=== PATIENT | female | born 1985 | race Caucasian/White ===

== ENCOUNTER 2018-08-24 18:07 | Emergency (ER) | payer MEDICAID, SELFPAY ==
[2018-08-24 18:08] VITALS: BP 101/59; PULSE 78; RESP 14; TEMP 37.1; O2SAT 100; BMI 19.9
--- NOTE | 2018-08-24 18:32 | CT_ITS ---
STUDY: CT ABDOMEN AND PELVIS WITH CONTRAST REASON FOR EXAM: Female, 32 years old. Abdominal pain. Crohn's disease. RADIATION DOSAGE (If Supplied By Facility): CTDIvol = ( 9.42 ) mGy, DLP = ( 269.46 ) mGycm TECHNIQUE: Transaxial images were obtained from the dome of the diaphragm to the symphysis pubis without oral contrast. 100 IV Isovue 370 was administered. Sagittal and coronal images were reconstructed. Individualized dose optimization techniques were used for this CT. COMPARISON: 07/23/2014 FINDINGS: The visualized lung bases are unremarkable. The visualized portions of the heart are within normal limits. Normal liver. The gallbladder is contracted. Normal spleen. Normal pancreas. Normal bilateral adrenal glands. Normal right kidney. Normal left kidney. Evaluation of the GI tract is very limited without oral contrast in this patient with history of Crohn's disease. In particular, evaluation of bowel valentin and exclusion of bowel wall thickening is very limited. Stomach is distended with ingested contents. No definitely dilated loops of small bowel but cannot exclude segments of small bowel wall thickening/enteritis. In fact, multiple loops of bowel in the pelvis appear to have an enhancing wall. This can be seen in nonspecific enteritis. Large bowel appears to be involved with marked diffuse fecal retention. No definite large bowel wall distention. Normal abdominal aorta. Normal inferior vena cava. Normal retroperitoneum. Normal urinary bladder. There is absence of the uterus consistent with a prior hysterectomy. 3 cm probable right ovarian cyst. Recommend further evaluation with ultrasound. There appears to be mild free fluid in the pelvis. Normal abdominal wall. Normal osseous structures. CT/Abdomen/Pelvis W IV Cont ONLY IMPRESSION: Evaluation of the GI tract is very limited without oral contrast in this patient with Crohn's disease. Neither enteritis or colitis can't be excluded. No evidence for obstruction. Marked fecal retention. 3 cm probable right ovarian cyst, ultrasound recommended. Electronically Signed: Tommie Ewing MD at 19:38 EDT , Service support ,
--- NOTE | 2018-08-24 18:35 | ED.DCSUM_ITS ---
- ER Visit Summary Date of Service: 08/24/18 Chief Complaint: Abdominal pain History of Present Illness: The patient is a 32 F who had nausea and vomiting couple days ago, now improved. She has continued right lower quadrant pain. She denies fever or chills. She has some urinary urgency but no dysuria. She is a history of Crohn's disease but states this has not felt a Crohn's flare. She has had prior appendectomy and partial hysterotomy. She is not sure if her right ovary has been removed. Physical Examination: Vital signs unremarkable. Patient lying in bed no acute distress. Head neck examination unremarkable. Heart is regular rate and rhythm. Lungs sounds are clear. Abdomen is soft with tenderness in the inferior aspect of the right lower quadrant. There is no guarding or rebound. Hypoactive bowel sounds are present. Test Results: CBC and chemistry studies are unremarkable. Urinalysis unremarkable. Emergency Department Course and Treatment: Patient was given Toradol, Zofran, and IV fluids. CT scan of the abdomen and pelvis with IV contrast reveals a 3 cm right ovarian cyst. Fecal retention is noted. Patient's pain and exam findings are not consistent with ovarian torsion I did not pursue ultrasound at this time. Patient be treated with naproxen at home and referred to Dr. Flores, on-call for [employer]POR[employer]NAGER. Treatment Plan: [] Disposition: Discharge Impression: Right ovarian cyst This note was generated with [employer] dictation software. It may contain incorrect words, spelling, and punctuation that were not noted in review of the chart prior to signing ED Disposition - Plan for ED Patient: Referrals: Care Physician,No Primary [NON-STAFF] -
[2018-08-24] MEDS: 0.9% Normal Saline 1,000 ML 150 ML IV (18:41)
[2018-08-24] MEDS: Ketorolac 30 MG/ML Syringe IV (18:41)
[2018-08-24] MEDS: Ondansetron 4 MG/2 ML Vial IV (18:41)
[2018-08-24 18:55] LABS: Absolute Lymphocyte Count 2.84 X10^3/ul (0.83-4.51); Absolute Neutrophil Count 2.5 X10^3/uL (2.0-7.7); Basophil# 0.01 X10^3/uL; Basophil% 0.2 % (0-1); Eosinophil# 0.16 X10^3/uL; Eosinophils% 2.6 % (0-5); Hemoglobin 12.5 g/dl (12.0-15.0); Lymphocyte # 2.84 X10^3/ul (4.0); Lymphocyte % 46.9 % (19-41); Mean Corp Hgb Conc 32.9 g/gl (32-36); Mean Corpuscular Hgb 28.2 pg (27.0-32.0); Mean Corpuscular Volume 85.8 fL (81-99); Mean Platelet Vol. 10.2 fl (6.2-12.0); Monocyte# 0.52 X10^3/uL; Monocyte% 8.6 % (0-10); Neutrophil # 2.51 X10^3/uL (2.7-7.7); Neutrophil % 41.5 % (47-70); Platelet Count 228 K/mm3 (150-450); RBC Distribution Width CV 13.1 % (11.6-14.6); RBC Distribution Width SD 40.7 fl (35.1-43.9); Red Blood Count 4.43 M/mm3 (4.2-5.4); White Blood Count 6.1 K/mm3 (4.4-11.0)
[2018-08-24 18:57] LABS: Anion Gap 4 (5-15); BUN 9 mg/dL (7-18); BUN/Creat Ratio 18.1 RATIO (10-20); Calcium,Total 7.9 mg/dL (8.5-10.1); Chloride 107 mmol/L (98-107); EST Glomerular Filtration Rate 151 mL/min (>60); Est Glom Filt Rate - Afr Amer 183 mL/min (>60); Estimated Creatinine Clearance 132.93 ml/min; Glucose 99 mg/dL (74-106); Potassium 3.6 mmol/L (3.5-5.1); Sodium Level 140 mmol/L (136-145)
[2018-08-24 19:08] LABS: Color, Urine Yellow (Yellow); Glucose, Dipstick Normal (Normal); Ketone-Dipstick 5 mg/dl (Negative); Leukocyte Esterase-Dipstick 25 /ul (Negative); Nitrite-Dipstick Negative (Negative); Occult Blood-Urine Negative /ul (Negative); Protein-Dipstick 15 mg/dl (Negative); Red Blood Cells-Urine 0 SEEN /hpf (0-5); Specific Gravity, Urine 1.015 (1.002-1.030); Urine Clarity Sl. Cloudy (Clear); Urine Urobilinogen 8 mg/dl (Normal); White Blood Cells 0 SEEN /hpf (0-5)
[2018-08-24 19:09] LABS: Urine Bilirubin Dipstick 1 mg/dL (Negative)
[2018-08-24 19:16] LABS: Bacteria RARE /hpf (None Seen); Mucous, Urine 1+ /hpf (<or=2+); Squamous Epithelial Cells - UA 10-25 SEEN /hpf (5-10)
[2018-08-24 19:32] LABS: POSITIVE COUNT NO; POSITIVE DIFFERENTIAL NO; POSITIVE MORPHOLOGY NO
--- NOTE | 2018-08-24 20:32 | ED.DEP ---
ED Disposition - Plan for ED Patient: Disposition: Home or Assisted Living Instructions: ED Cyst Ovarian Prescriptions: Naproxen [Naprosyn] 500 mg PO BID PRN PRN #20 tablet PRN Reason: Pain Referrals: Donald Flores [STAFF PHYSICIAN] - 1-2 Weeks
[2018-08-24 20:45] VITALS: BP 97/61; PULSE 70; RESP 16; O2SAT 98
== END 2018-08-24 20:45 | disposition home or self-care (01) ==
PROVIDERS: Emergency Provider Emergency Medicine
DX: N83.201 Unspecified ovarian cyst, right side (principal); K50.90 Crohn's disease, unspecified, without complications; K59.00 Constipation, unspecified; R39.15 Urgency of urination; Z72.0 Tobacco use
CPT/HCPCS: 74177; 80048; 81001; 85025; 96361; 96374; 96375; 99283; J7030; Q9967; A4216; J2405

== ENCOUNTER 2019-05-11 22:14 | Emergency (ER) | payer MEDICAID, SELFPAY ==
[2019-05-11 22:14] VITALS: BP 105/71; PULSE 88; RESP 16; TEMP 37.2; O2SAT 100; BMI 21.2
--- NOTE | 2019-05-11 23:10 | ED.VIS.GEN ---
History of Present Illness Chief Complaint: Other, Pain/Inj Informant: Patient Narrative: Stated for last few days she has had some soreness in her right side of her neck. She has been using ibuprofen intermittently. Her last dose was approximately 12 hours ago. It is hurts to massage it push on it and turn her head. She thinks she might of slept on it wrong. Does not remember an injury. She has had muscle strains in her neck remotely but none recent. Denies any other symptoms. Current severity is moderate. When she turns her head it seems to make it worse - Past Medical History (1) History of cystic fibrosis Status: Chronic Past Medical History - Allergies and Home Meds Allergies/Adverse Reactions: Allergies No Known Allergies Allergy (Verified 05/11/19 22:14) Primary Care Physician: Leana Quigley [Primary Care Provider] - Prior records reviewed: Yes Past Medical History: - - See problem list Surgical History: noncontributory Lives: With Family Smoking Status: Current every day smoker Alcohol: None Drugs: None Review of Systems General: Denies: Chills, Fever, Sweats Eyes: Denies: Visual changes - bilaterally, Diplopia ENT: Denies: Rhinorrhea, Sore throat Cardiovascular: Denies: Chest pain, Palpitations Respiratory: Denies: Dyspnea, Cough, Dyspnea on exertion Gastrointestinal: Denies: Abdominal pain, Nausea, Vomiting, Diarrhea, Melena, Hematochezia Genitourinary: Denies: Dysuria, Hematuria, Frequency Musculoskeletal: Reports: Neck pain. Denies: Back pain, Extremity Pain Skin: Denies: Rash, Wounds Neurological: Denies: Headache, Weakness, Numbness Physical Exam Vital Signs/Narrative: Vital Signs Temp Pulse Resp BP Pulse Ox 05/11/19 22:14 98.9 F 88 16 105/71 100 General: Well nourished, Well developed, No Acute Distress Head: Normocephalic, Atraumatic Eyes: Perrl, EOMI ENT: Moist mucous membranes, No rhinorrhea Neck: Supple, No lymphadenopathy, No JVD, - - Has pinpoint tenderness in her right paracervical strap-like muscles. Decreased range of motion looking to the left secondary to pain in the right side of her neck. Also has some pain looking to the right. It is musculoskeletal in nature. There is no swelling or deformity. Negative for: Nontender Cardiovascular: Regular rate, Regular rhythm, No murmurs Respiratory: No distress, CTA bilaterally, Chest nontender Abdomen: Soft, Nontender, Nondistended, Normal bowel sounds Back: Nontender, Normal Inspection Extremities: Nontender, No edema Skin: Normal color, No rash Neurological: Alert, Oriented x3, Cranial nerves II-XII grossly intact, Normal Strength, Normal Sensation Psychological: Normal affect, Normal Mood Diagnostic/Tx/Re-eval - Medical Decision Making Patient given injection of Toradol and Norflex. Will be given Flexeril for home. We will follow-up as an outpatient continue ibuprofen for suspected muscle strain of her neck. This may be torticollis. ED Disposition - Plan for ED Patient: Disposition: Home or Assisted Living Diagnosis: Wry neck Instructions: Neck Sprain/Strain Prescriptions: cycloBENZAPRine HCl [Flexeril] 10 mg PO TID PRN #20 tab PRN Reason: Muscle Spasm Prescription Printed Referrals: [facility] Kishore,Leana Suresh [Primary Care Provider] -
[2019-05-11] MEDS: Orphenadrine 60 MG/2 ML Ampul IM (23:27)
[2019-05-11] MEDS: Ketorolac 15 MG/ML Vial IM (23:27)
[2019-05-11 23:57] VITALS: BP 110/62; PULSE 70; RESP 16; O2SAT 100
== END 2019-05-11 23:58 | disposition home or self-care (01) ==
PROVIDERS: Emergency Provider Emergency Medicine
DX: M43.6 Torticollis (principal); E84.9 Cystic fibrosis, unspecified; F17.200 Nicotine dependence, unspecified, uncomplicated
CPT/HCPCS: 96372; 99283

== ENCOUNTER 2020-05-20 14:18 | Emergency (ER) | payer SELFPAY ==
[2020-05-20 14:19] VITALS: BP 100/83; PULSE 103; RESP 16; TEMP 36.1; O2SAT 100; BMI 19.8
--- NOTE | 2020-05-20 15:04 | ED.VISSUMM ---
- ER Visit Summary Date of Service: 05/20/20 Chief Complaint: Abscess to right leg History of Present Illness: The patient is a 34 F who goes to the [facility]. She reports that she has had an abscess on her right leg for the past 3 weeks. There have been multiple different areas that have opened up and drained. However, she reports that there is one area that is not draining is becoming more painful. She describes a sharp, aching pain is 1010 worsening to 10 currently. Is worsened by walking. It is relieved by rest but she is taken Tylenol without relief. She denies any numbness or weakness. Patient denies any injury that started this. She does report that she has gotten yellow, thick drainage from it. She has not been on any antibiotics for this. She denies any constitutional symptoms. No fever, chills, nausea, or vomiting. Physical Examination: Vitals: Stable. Afebrile. General: Well-nourished and well-developed. Head: Normocephalic atraumatic. Neck: Supple, no lymphadenopathy. No JVD. Nontender. Cardiovascular: Regular rate and rhythm. No murmurs. Respiratory: No respiratory distress. Clear to auscultation bilaterally. Abdominal: Soft, nontender, nondistended, normal bowel sounds. No guarding, rebound, or peritoneal signs. Back: Nontender. Extremities: Medial side of her right leg just proximal to the medial malleolus there are 2 ulcers that are approximately 1-1/2 cm in diameter. There are 3 scabbed lesions superior to this. Just anterior to her Achilles tendon there is an approximately 2 cm fluctuant area. There is overlying erythema and tenderness to palpation. There is no lymphangitic spread. She is a 2+ dorsalis pedis pulse. Skin: Normal color, no rash. Neurologic: Alert and oriented ?3. Cranial nerves II through XII are intact. Normal strength and sensation. Psych: Normal affect. Emergency Department Course and Treatment: Patient refused I&D of this area. Had a prolonged discussion with her that it will likely not get better without an incision and drainage. She is adamant that she does not want to have performed at this time. She was given doxycycline p.o. and naproxen p.o. Treatment Plan: Patient will be discharged with doxycycline, naproxen, 6 [place]. Instructed to follow-up the wound clinic as soon as possible. She does understand that if this is not improving with conservative management that she will require incision and drainage. Return to the emergency department for any worsening symptoms. Disposition: To home in improved and stable condition. Impression: 1. Abscess right leg. 2. Ulcers right leg. This note was generated with [employer] dictation software. It may contain incorrect words, spelling, and punctuation that were not noted in review of the chart prior to signing ED Disposition - Plan for ED Patient: Disposition: Home or Assisted Living Instructions: ED Abscess Antibiotic Treatment Only Prescriptions: Mupirocin [Bactroban] 1 applic TOPICAL TID #1 tube Prescription Printed Doxycycline 100 mg PO BID #20 cap Prescription Printed Naproxen [Naprosyn] 500 mg PO BID #14 tab Prescription Printed Hydrocodone Bitart/Apap 5-325 [[place] 5MG-325MG] 1 tab PO Q4H PRN PRN 2 Days #10 tab PRN Reason: Pain Prescription Printed Referrals: Clinic,Wound [None] - As soon as possible
[2020-05-20] MEDS: Naproxen 250 MG Tablet 500 MG PO (15:11)
[2020-05-20] MEDS: Doxycycline 100 MG CAPSULE PO (15:11)
== END 2020-05-20 15:20 | disposition home or self-care (01) ==
PROVIDERS: Emergency Provider Emergency Medicine
DX: L02.415 Cutaneous abscess of right lower limb (principal); L97.919 Non-pressure chronic ulcer of unspecified part of right lower leg with unspecified severity; K50.90 Crohn's disease, unspecified, without complications; F17.210 Nicotine dependence, cigarettes, uncomplicated
CPT/HCPCS: 99283

== ENCOUNTER 2020-05-24 09:15 | Outpatient (RCR) | payer SELFPAY ==
[2020-05-24 09:23] VITALS: BP 92/70; PULSE 78; TEMP 36.8; BMI 19.8
--- NOTE | 2020-05-24 12:41 | PCM.WC.HP ---
(1) Ulcer of right lower extremity with fat layer exposed Status: Acute Code(s): L97.912 - Non-pressure chronic ulcer of unspecified part of right lower leg with fat layer exposed (2) Crohn's disease Status: Chronic Code(s): K50.90 - Crohn's disease, unspecified, without complications History of Present Illness Date of Service: 05/24/20 Chief Complaint: Non healing right leg ulcer History of Wound: Ms. Napier is a 34 yo Who presents to the wound center due to nonhealing right lower extremity ulcer. Initially noted about 3 weeks ago and said to have started as a swelling/abscess. Was seen at the emergency room and an I&D was recommended however patient declined due to significant pain. Subsequently opened up with drainage of yellowish/greenish substance. She also reports significant tenderness around the area. Has been on doxycycline for about 4 days and has noted some improvement in the pain but still overall significantly tender. Similar episodes in the past which started spontaneouly and resolved after weeks. Documented history of Crohn's disease but has not had any significant treatment due to lack of insurance. 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 History of Tobacco abuse and currently smokes 1/2 a pack a day. Past Medical History Past Medical History: Chronic Problems Crohn's disease (Chronic) History of cystic fibrosis (Chronic) Surgical History: noncontributory Allergies/Adverse Reactions: Allergies No Known Allergies Allergy (Verified 05/20/20 14:20) Home Medications: Ambulatory Orders Medication Instructions Recorded Doxycycline 100 mg PO BID #20 cap 05/20/20 Mupirocin [Bactroban] 1 applic TOPICAL TID #1 tube 05/20/20 Naproxen [Naprosyn] 500 mg PO BID #14 tab 05/20/20 Smoking Status: Light Smoker (<10/day) Review of Systems Constitutional: Denies: Anorexia, Chills, Fever Eyes: Denies: Blurred vision, Pain, Redness HEENT: Denies: Difficulty Hearing, Difficulty Swallowing, Head Aches Cardiovascular: Denies: Chest Pain, Claudication, Chest Pressure, Chest Tightness Respiratory: Denies: Cough, Hemoptysis, Pleuritic Pain, Sputum production Gastrointestinal: Reports: Abdominal Pain, Hematochezia. Denies: Hematemesis, Vomiting Skin: Denies: Jaundice - Physical Exam Vital Signs Temp Pulse BP 98.3 F 78 92/70 05/24/20 09:23 05/24/20 09:23 05/24/20 09:23 General: Alert, Oriented x3, Cooperative, No apparent distress HEENT: Atraumatic, Normocephalic, Lymphadenopathy - Right Inguinal Neck: Supple, No JVD Lungs: Normal air movement, No wheeze, No rales Cardiovascular: Regular rate, Regular Rhythm, Normal S1, Normal S2 Abdomen: Soft, Tender Extremities: No cyanosis, No edema Skin: Ulcer/ Wound Wound Measurements and Assessment WC - Nurse 1 - General Ulcer Measurement Start: 05/24/20 09:23 Freq: Status: Active Protocol: Activity Type Activity Date Activity User E-Sign Co-Sign Detail Recorded Client Recorded Date Recorded By Document 05/24/20 09:23 KR [id number] 05/24/20 09:33 KR 05/24/20 09:23 Wound Center Nurse 1 [Ulcer Assessment] # 1Right Ankle Cluster -Current Size (cm) - Length 8.4 -Current Size (cm) - Width 6 -Current Size (cm) - Depth 0.2 -Total Square Cm 50.4 -Exudate Amt Medium -Exudate Type Serosanguineous -Wound Margin Distinct, Outline Attached -Granulation Amt Medium (34-66%) -Granulation Quality Red -Necrosis Amt Medium (34-66%) -Necrotic Tissue Type Adherent Slough -Texture (Harper-wound Skin Appearance) Assessed, Scarring -Moisture (Harper-wound Skin Appearance No Abnormality, ) Assessed -Color (Harper-wound Skin Appearance) No Abnormality, Assessed -Temperature (Harper-wound Skin No Abnormality Appearance) (Pt Warm) -Tenderness on Palpation (Harper-wound No Skin Appearance) -Ulcer Cleansing Rinsed/ Irrigated with Saline -Foul Odor after Cleansing No -Anesthetic Used 4% Lidocaine Solution,5% Lidocaine Gel WC - Nurse 2 - General Ulcer CM Notes Start: 05/24/20 09:23 Freq: Status: Active Protocol: Activity Type Activity Date Activity User E-Sign Co-Sign Detail Recorded Client Recorded Date Recorded By Document 05/24/20 09:55 MW [id number] 05/24/20 10:03 MW 05/24/20 09:55 Wound Center Nurse 2 [Procedure/Treatment] -Time 09:56 -Correct Patient Yes -Correct Side, Site, Position Yes -Correct Procedure Yes -Procedure Performed No -Tunneling No -Undermining/Tunneling No -Circular Undermining No -Wound/Ulcer Outcome Not Healed -Ulcer Cleansing Rinsed/ Irrigated with Saline -Foul Odor after Cleansing No -Bioengineered Tissue No -Bleeding Controlled with Pressure -Offloading No -Treatment Response Procedure Tolerated Well [See Physician Procedure note for Specifics] Pain Scale: 0-10 Numeric [Pain] -Is Patient Pain Free? Yes - Nurse 3 - General Ulcer D/C NN Start: 05/24/20 09:23 Freq: Status: Active Protocol: Activity Type Activity Date Activity User E-Sign Co-Sign Detail Recorded Client Recorded Date Recorded By Document 05/24/20 10:37 DL [id number] 05/24/20 10:38 DL 05/24/20 10:37 Wound Care Nurse 3 [Wound Dressing] # 1Right Ankle Cluster -Ulcer Cleansing Rinsed/ Irrigated with Saline -Foul Odor after Cleansing No -Primary Dressing Applied Silvercel -Primary Dressing Covered/Secured Dry Gauze & with Roll Gauze, Secured with Tape -Silvercel 1 [Compression Applied] Right -Tubular Bandage Double Layer -Size of Tubigrip Used Size D -Size D ($) 2 [Post Procedure Tolerated] -Treatment Response Procedure Tolerated Well Pain Scale: 0-10 Numeric [Pain] -Is Patient Pain Free? Yes - Visit Discharge [Visit Discharge Information] -Discharge Condition Stable -Ambulatory Status Ambulatory -Transportation Private Auto Musculoskeletal: No Muscle Wasting Neurological: Cranial nerves II-XII grossly intact Psych/Mental Status: Normal Affect Debridement Note Post-Debridement Measurements/Treatment - Nurse 2 - General Ulcer CM Notes Start: 05/24/20 09:23 Freq: Status: Active Protocol: Activity Type Activity Date Activity User E-Sign Co-Sign Detail Recorded Client Recorded Date Recorded By Document 05/24/20 09:55 MW [id number] 05/24/20 10:03 MW 05/24/20 09:55 Wound Center Nurse 2 # 1Right Ankle Cluster -Time 09:56 -Correct Patient Yes -Correct Side, Site, Position Yes -Correct Procedure Yes -Procedure Performed No -Tunneling No -Undermining/Tunneling No -Circular Undermining No -Wound/Ulcer Outcome Not Healed -Ulcer Cleansing Rinsed/ Irrigated with Saline -Foul Odor after Cleansing No -Bioengineered Tissue No -Bleeding Controlled with Pressure -Offloading No -Treatment Response Procedure Tolerated Well Pain Scale: 0-10 Numeric Is Patient Pain Free? Yes WC - Nurse 3 - General Ulcer D/C NN Start: 05/24/20 09:23 Freq: Status: Active Protocol: Activity Type Activity Date Activity User E-Sign Co-Sign Detail Recorded Client Recorded Date Recorded By Document 05/24/20 10:37 DL [id number] 05/24/20 10:38 DL 05/24/20 10:37 Wound Care Nurse 3 # 1Right Ankle Cluster -Ulcer Cleansing Rinsed/ Irrigated with Saline -Foul Odor after Cleansing No -Primary Dressing Applied Silvercel -Primary Dressing Covered/Secured with Dry Gauze & Roll Gauze, Secured with Tape -Silvercel 1 Right -Tubular Bandage Double Layer -Size of Tubigrip Used Size D -Size D ($) 2 Treatment Response Procedure Tolerated Well Pain Scale: 0-10 Numeric Is Patient Pain Free? Yes WC - Visit Discharge Discharge Condition Stable Ambulatory Status Ambulatory Transportation Private Auto No debridement was completed today Assessment/Plan Active Problems Ulcer of right lower extremity with fat layer exposed (Acute) Crohn's disease (Chronic) Assessment: Right Leg Ulcer with Fat layer Exposed. Recurrent Lower Extremity Ulcerations. Crohn's Disease. Plan: 3-week history of right lower extremity ulcer which started out as an abscess. Subsequently opened up. Significantly tender. History of recurrent ulcerations in similar fashion. Diagnosed with Crohn's years ago. Has not been adequately treated due to lack of insurance. 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 Debridement not done due to significant tenderness. Currently on doxycycline, will add on Keflex. Aquacel Ag daily to twice daily depending on drainage. Cover with gauze and tape. Double layer Tubigrip for edema management. She was advised to look into registering for Medicaid, she states that she was in the process of doing so. Questions were answered and she was advised to call with any further questions or concerns. Follow-up in a week. This note was generated with [employer] dictation software. It may contain incorrect words, spelling, and punctuation that were not noted in checking the note before signing. Office Visits / Consults: [id number] OV L4 New
== END 2020-06-10 23:59 ==
LOC: WC 09:15
PROVIDERS: Referring Provider Emergency Medicine; Visit Provider Internal Medicine
DX: L97.912 Non-pressure chronic ulcer of unspecified part of right lower leg with fat layer exposed (principal); K50.90 Crohn's disease, unspecified, without complications; F17.210 Nicotine dependence, cigarettes, uncomplicated; Z79.1 Long term (current) use of non-steroidal anti-inflammatories (NSAID); E84.9 Cystic fibrosis, unspecified
CPT/HCPCS: 99203; G0463

== ENCOUNTER 2020-07-10 10:58 | Emergency (ER) | payer SELFPAY ==
[2020-07-10 10:59] VITALS: BP 132/84; PULSE 95; RESP 16; TEMP 36.1; O2SAT 99; BMI 20.9
--- NOTE | 2020-07-10 11:31 | ED.DCSUM_ITS ---
- ER Visit Summary Date of Service: 07/10/20 Chief Complaint: Abdominal pain with a history of Crohn's History of Present Illness: The patient is a 34 F reported history of Crohn's with prior appendectomy and partial hysterectomy. States she was diagnosed with Crohn's years ago with upper and lower endoscopy and biopsies. She denies any prior partial colon surgeries. States on Thursday she started getting crampy abdominal pain with associated nausea, vomiting and diarrhea. He said the nausea and vomiting is resolved. She still having mild diarrhea. No melena. No fever. No dysuria. Burning pressure sensation Physical Examination: Young female no acute distress. Vital signs stable afebrile. HEENT exam unremarkable. Moist wheeze members. Neck nontender no lymphadenopathy. Lungs clear to auscultation bilaterally. Heart regular rhythm rate about 95 no murmur. Abdomen soft. Nondistended. Normal bowel sounds. No peritoneal signs. No signs of obstruction. Very mild epigastric tenderness. No rebound, guarding or rigidity. No obvious hernia or mass.. Both the right upper and right lower quadrants are unremarkable. Patient is moving all 4 extremities. Calves are nontender without edema. Back is nontender. Neurologically she is awake and alert with no focal motor deficits. Test Results: CBC normal white count 8. Hemoglobin 12. No bands chemistries unremarkable normal gap and creatinine. Liver enzymes normal. Lipase normal at 157. UA normal. CAT scan of the abdomen and pelvis with IV and oral contrast shows inflammatory changes of the terminal ileum consistent with Crohn's disease per the radiologist. Read by the radiologist reviewed by me. No perforation. No abscess. No obstruction. Repeat exam patient is doing well at 1:05 PM. Awaiting CAT scan. Emergency Department Course and Treatment: Young female reported history of Crohn's with abdominal pain and diarrhea. Nausea and vomiting is resolved. I asked her and she did not waiting for pain or nausea at this time. She will be given IV fluids. CAT scan labs are being obtained. Treatment Plan: Doing well repeat exam at 2:22 PM. She will be discharged to home. [place]ota for pain. Follow-up. Disposition: Discharge Impression: Acute abdominal pain secondary to Crohn's flare History of Crohn's This note was generated with [employer] software. It may contain incorrect words, spelling, and punctuation that were not noted in review of the chart prior to signing ED Disposition - Plan for ED Patient: Referrals: [facility],Leana Suresh [Primary Care Provider] -
--- NOTE | 2020-07-10 11:31 | CT_ITS ---
STUDY: CT ABDOMEN AND PELVIS WITH CONTRAST REASON FOR EXAM: Female, 34 years old. abd pain w/ crohns hx -- IV PO Contrast RADIATION DOSAGE (If Supplied By Facility): CTDIvol = ( 9.59 ) mGy, DLP = ( 285.91 ) mGycm TECHNIQUE: Transaxial images were obtained from the dome of the diaphragm to the symphysis pubis without oral contrast. Oral and amp; IV Gastrografin and amp; 100mL Isovue-300 was administered. Sagittal and coronal images were reconstructed. Individualized dose optimization techniques were used for this CT. COMPARISON: 08/24/2018 FINDINGS: The visualized lung bases are unremarkable. The visualized portions of the heart are within normal limits. Normal liver. The gallbladder is contracted. Normal spleen. Normal pancreas. Normal bilateral adrenal glands. Normal right kidney. Normal left kidney. Normal visualized stomach. The terminal ileum demonstrates diffuse wall thickening consistent with known Crohn''s disease. No loculated fluid collection to suggest the abscess. No pneumoperitoneum to suggest perforation. Normal colon. There is non-visualization of the appendix. Normal abdominal aorta. Normal inferior vena cava. Normal retroperitoneum. Normal urinary bladder. Normal abdominal wall. Normal osseous structures. CT/Abdomen/Pelvis WITH Contrast IMPRESSION: Known Crohn''s disease of the terminal ileum. No abscess or perforation. Electronically Signed: Hakeem Pedro MD at 13:50 EST Tel , Service support ,
[2020-07-10] MEDS: 0.9% Normal Saline 1,000 ML 1000 ML IV (11:46)
[2020-07-10 11:48] LABS: Absolute Lymphocyte Count 2.95 X10^3/uL (0.83-4.51); Absolute Neutrophil Count 4.4 X10^3/uL (2.0-7.7); Basophil# 0.04 X10^3/uL; Basophil% 0.5 % (0-1); Eosinophil# 0.14 X10^3/uL; Eosinophils% 1.7 % (0-5); Hematocrit 40.5 % (37-47); Hemoglobin 12.8 g/dL (12.0-15.0); Lymphocyte # 2.95 X10^3/ul (4.0); Lymphocyte % 34.8 % (19-41); Mean Corp Hgb Conc 31.6 g/dL (32-36); Mean Corpuscular Hgb 26.9 pg (27.0-32.0); Mean Corpuscular Volume 85.3 fL (81-99); Mean Platelet Vol. 9.9 fl (6.2-12.0); Monocyte# 0.92 X10^3/uL; Monocyte% 10.8 % (0-10); NRBC Flagged by Analyzer 0 % (0-5); Neutrophil % 51.8 % (47-70); Platelet Count 325 K/mm3 (150-450); RBC Distribution Width CV 13.9 % (11.6-14.6); RBC Distribution Width SD 43.4 fl (35.1-43.9); Red Blood Count 4.75 M/mm3 (4.2-5.4); White Blood Count 8.5 K/mm3 (4.4-11.0)
[2020-07-10 11:56] LABS: ALB/GLOB Ratio 0.8 RATIO (0.9-2.4); AST(SGOT) 26 U/L (15-37); Alanine Aminotransfer ALT/SGPT 50 U/L (13-56); Albumin, Serum 3.3 g/dL (3.2-5.0); Alkaline Phosphatase 113 U/L (45-117); Anion Gap 5 (5-15); BUN 10 mg/dL (7-18); BUN/Creat Ratio 13.5 RATIO (10-20); Calcium,Total 8.9 mg/dL (8.5-10.1); Chloride 106 mmol/L (98-107); Creatinine, Serum 0.74 mg/dL (0.55-1.02); EST Glomerular Filtration Rate 94 mL/min (>60); Est Glom Filt Rate - Afr Amer 114 mL/min (>60); Estimated Creatinine Clearance 91.63 ml/min; Globulin 4.4 g/dL (2.2-4.2); Glucose 88 mg/dL (74-106); Lipase 157 U/L (73-393); Potassium 3.7 mmol/L (3.5-5.1); Protein, Total 7.7 g/dL (6.4-8.2); Sodium Level 137 mmol/L (136-145)
[2020-07-10 12:22] LABS: Bacteria 0 SEEN /hpf (None Seen); Mucous, Urine 0 SEEN /hpf (<or=2+); Red Blood Cells-Urine 0 SEEN /hpf (0-5)
[2020-07-10 12:51] LABS: Color, Urine Yellow (Yellow); Glucose, Dipstick Normal (Normal); Ketone-Dipstick Negative (Negative); Leukocyte Esterase-Dipstick 500 /ul (Negative); Nitrite-Dipstick Negative (Negative); Occult Blood-Urine 10 /ul (Negative); Protein-Dipstick Negative (Negative); Urine Bilirubin Dipstick Negative (Negative); Urine Clarity Sl. Cloudy (Clear); Urine Urobilinogen Normal (Normal)
[2020-07-10 12:58] LABS: Squamous Epithelial Cells - UA 5-10 SEEN /hpf (5-10); Trichomonas 0-5 SEEN /hpf (None Seen); White Blood Cells 0-5 SEEN /hpf (0-5)
[2020-07-10 13:06] VITALS: BP 99/65; PULSE 85; RESP 16; O2SAT 99
--- NOTE | 2020-07-10 14:31 | ED.DEP ---
ED Disposition - Plan for ED Patient: Disposition: Home or Assisted Living Instructions: ED Crohn's Disease Prescriptions: Dicyclomine HCl [Bentyl] 10 mg PO TIDAC #14 cap Prescription Printed Prednisone [Deltasone] 40 mg PO DAILY 7 Days #10 tab Prescription Printed [facility] - [facility]-5 Days Additional Instructions: Bentyl for pain. Follow-up for further evaluation your Crohn's disease.
== END 2020-07-10 14:39 | disposition home or self-care (01) ==
PROVIDERS: Emergency Provider Emergency Medicine
DX: K50.90 Crohn's disease, unspecified, without complications (principal); Z72.0 Tobacco use; Z90.711 Acquired absence of uterus with remaining cervical stump; F11.90 Opioid use, unspecified, uncomplicated
CPT/HCPCS: 74177; 80053; 81001; 83690; 85025; 96360; 99284; J7030; Q9967; A4216

== ENCOUNTER 2021-02-04 01:10 | Emergency (ER) | payer SELFPAY ==
[2021-02-04 01:10] VITALS: BP 98/71; PULSE 82; RESP 18; TEMP 36.3; O2SAT 100; BMI 20.9
--- NOTE | 2021-02-04 01:40 | EDS_ITS ---
HPI History of Present Illness Chief Complaint: Nausea/Vomiting/Diarrhea Informant: patient Narrative Narrative: 35-year-old female presents to the emergency department with vomiting and diarrhea. Patient states that yesterday she began to have vomiting and diarrhea today she noticed that she was losing her voice. She denies any fevers, runny nose, cough. She notes lower abdominal pain. She has a history of Crohn's which is gone untreated for the past several years due to health insurance issues. She describes the diarrhea as green and watery. Typically her Crohn's flareups are not this consistency. She does not typically throw up with her Crohn's. She has been able to drink fluids and states that she has been urinating normally [facility] Medical History (Updated 02/04/21 @ 08:[address] Kevan Farfan DO) Crohn disease Crohn's disease Home Medications ondansetron 4 mg PO Q6H PRN PRN #15 tab 02/04/21 [Rx Last Taken Unknown] oxycodone-acetaminophen 1 tab PO Q6H PRN PRN 3 Days #12 tablet 02/04/21 [Rx Last Taken Unknown] prednisone 60 mg PO DAILY #15 tablet 02/04/21 [Rx Last Taken Unknown] Allergy/AdvReac Type Severity Reaction Status Date / Time No Known Allergies Allergy Verified 02/04/21 02:15 Social History (Updated 02/04/21 @ 01:[address] Kevan Farfan DO) Smoking Status: Light Smoker (<10/day) substance use type: does not use ROS ROS ED Constitutional Constitutional ED: Denies chills or weight loss Eyes Eyes: Denies change in vision or diplopia ENT ENT ED: Reports other Details: Hoarse voice ; Denies ear pain, rhinorrhea or sore throat Cardiovascular Cardiovascular: Denies chest pain, orthopnea, palpitations or racing heartbeat Respiratory/Chest Respiratory/Chest: Denies cough, dyspnea or orthopnea Gastrointestinal Gastrointestinal: Reports abdominal pain, diarrhea, nausea and vomiting Genitourinary Genitourinary ED: Denies dysuria, hematuria or urinary frequency Musculoskeletal Musculoskeletal: Denies arthralgias or myalgias Integumentary Denies abscess or rash Neurologic Neurologic: Denies headache(s) or weakness Psychiatric Psychiatric: Denies anxiety, depression, suicidal ideation or suicidal thoughts Endocrine Endocrinology: Denies polydipsia, polyphagia or polyuria Allergic/Immunologic Allergic/Immunologic ED: Denies mouth swelling, tongue swelling or urticaria EXAM Physical Exam Const Vital Signs: 02/04/21 01:10 02/04/21 02:14 02/04/21 03:25 Temperature 97.4 F L 97.4 F L 97.4 F L Temperature Source Temporal Temporal Temporal Pulse Rate 82 82 82 Respiratory Rate 18 18 18 Blood Pressure 98/71 98/71 98/71 Blood Pressure Mean 80 80 80 Pulse Ox 100 100 100 Oxygen Delivery Method Room Air Room Air Room Air 02/04/21 05:13 02/04/21 07:06 Temperature Temperature Source Pulse Rate 61 Respiratory Rate 16 15 Blood Pressure 86/50 L Blood Pressure Mean 62 Pulse Ox 95 Oxygen Delivery Method Room Air Room Air Positive well nourished and well developed General Appearance ED: well developed HEENT Reports normocephalic, head/scalp atraumatic and moist mucous membranes Eyes PERRL and EOMs intact bilaterally Neck no lymphadenopathy, supple and no JVD Resp normal respiratory effort and clear to auscultation bilaterally Cardio regular rate, regular rhythm and no murmurs GI GI Narrative: Diffuse tenderness to palpation out of proportion to the exam the abdomen is soft Auscultation: normoactive bowel sounds Palpation: soft Back/Spine no CVA tenderness and normal ROM Extremity normal to inspection General Extremety ED: Negative for edema General Extremity: Negative for edema Neuro oriented x3 and CN's II-XII intact bilaterally Sensorium / Orientation: alert Motor Exam: strength 5/5 throughout Psych mental status grossly normal Mood & Affect: Negative for depressed or tearful Skin no rashes or lesions noted and no wounds MDM MDM MDM Narrative Medical decision making narrative: Unfortunately nursing was unable to establish an IV after multiple attempts and ultrasound at times. I do not feel a central line is necessarily indicated. She was able to orally hydrate after Zofran. CT of the abdomen pelvis demonstrated some mild wall thickening of the terminal ileum and ascending colon consistent with Crohn's. There was some instruct inflammatory stranding along the ascending colon. Clinically I think the patient is more viral gastroenteritis but cannot rule out a Crohn's exacerbation. We will treat with Zofran [place] and prednisone. Radiography Diagnostic Testing: Radiology Impression Abdomen/Pelvis CT 02/04/21 03:15 IMPRESSION: Mild wall thickening of the terminal ileum and ascending colon with mild inflammatory stranding along the ascending colon concerning for Crohn's disease. No evidence of abscess or perforation. Individualized dose optimization techniques were used for this CT. at 0758 Reported and signed by: Severo Narvaez MD Electronically Signed: Severo Narvaez MD at 7:56 EDT Tel , Service support , Discharge Plan Triage Chief Complaint: Nausea/Vomiting/Diarrhea ED Provider: Kevan Farfan Dx/Rx/DC Orders Clinical Impression: Crohn's disease, Vomiting and diarrhea Instructions: ED Gastroenteritis, Viral (Adult) Prescriptions: New oxycodone-acetaminophen [oxycodone-acetaminophen] 1 TABLET tablet 1 tab PO Q6H PRN PRN (Reason: Pain) 3 Days Qty: 12 RF: 0 ondansetron [ondansetron] 4 MG tablet 4 mg PO Q6H PRN PRN (Reason: Nausea) Qty: 15 RF: 0 prednisone 20 MG tablet 60 mg PO DAILY Qty: 15 RF: 0 Primary [facility] Provider: [facility] Leana Finch Referrals: [facility] Leana Finch [Primary Care Provider] - As soon as possible Disposition Disposition: Home, Self Care
[2021-02-04 02:14] VITALS: BP 98/71; PULSE 82; RESP 18; TEMP 36.3; O2SAT 100
--- NOTE | 2021-02-04 03:15 | CT_ITS ---
HISTORY: abdominal pain TECHNIQUE: Multiple axial images were obtained of the abdomen and pelvis without oral or IV contrast. Coronal and sagittal reformats obtained. A radiation dose optimization technique was used for this scan. COMPARISON: July 10, 2020 FINDINGS: # of images incl. paperwork: 2 LUNG BASES: Unremarkable. LIVER T BILIARY TRACT: Unremarkable gallbladder. No acute hepatic finding. ADRENAL GLANDS: Unremarkable. SPLEEN: Unremarkable. PANCREAS: Unremarkable. KIDNEYS/URETERS/BLADDER: No nephrolithiasis, hydronephrosis or perinephric inflammation. Unremarkable ureters and bladder. LYMPH NODES: No suspicious adenopathy. STOMACH, SMALL AND LARGE BOWEL: No acute gastric finding. No small bowel obstruction. 7 mm appendix suggested, axial image 117 without surrounding inflammation. Mild terminal ileal wall thickening and cecal wall thickening, best seen on coronal reformats with minimal inflammatory stranding along the ascending colon. No evidence of abscess. No free air. ASCITES/FREE AIR: No free fluid or free air. AORTA: Unremarkable. PELVIS: Absent uterus. Bilateral Essure devices noted. No evidence of adnexal mass. MUSCULOSKELETAL: No acute osseous finding. CT/Abdomen/Pelvis without Cont IMPRESSION: Mild wall thickening of the terminal ileum and ascending colon with mild inflammatory stranding along the ascending colon concerning for Crohn's disease. No evidence of abscess or perforation. Individualized dose optimization techniques were used for this CT. at 9118 Reported and signed by: Severo Narvaez MD Electronically Signed: Severo Narvaez MD at 7:56 EDT Tel , Service support ,
[2021-02-04 03:25] VITALS: BP 98/71; PULSE 82; RESP 18; TEMP 36.3; O2SAT 100
[2021-02-04] MEDS: Ondansetron ODT 4 MG Tablet 8 MG PO (03:26)
[2021-02-04] MEDS: Ketorolac 60 MG/2 ML Vial IM (03:26)
--- NOTE | 2021-02-04 05:04 | ED.RN ---
pt sleeping attempt to offer po challenge.
[2021-02-04 05:13] VITALS: BP 86/50; PULSE 61; RESP 16; O2SAT 95
--- NOTE | 2021-02-04 06:50 | ED.RN ---
Pt sleeping tolerated po challenge well.
[2021-02-04 07:06] VITALS: RESP 15
[2021-02-04 08:24] VITALS: BP 118/72; PULSE 69; RESP 14; O2SAT 97
== END 2021-02-04 08:24 | disposition home or self-care (01) ==
PROVIDERS: Emergency Provider Emergency Medicine
DX: K50.90 Crohn's disease, unspecified, without complications (principal); R11.2 Nausea with vomiting, unspecified; R19.7 Diarrhea, unspecified; F17.200 Nicotine dependence, unspecified, uncomplicated; Z79.52 Long term (current) use of systemic steroids
CPT/HCPCS: 74176; 96361; 96372; 96374; 96375; 99284; J7030; J2405

== ENCOUNTER 2021-02-13 10:58 | Emergency (ER) | payer MEDICAID, SELFPAY ==
[2021-02-13 10:59] VITALS: BP 97/65; PULSE 71; RESP 16; TEMP 36.8; O2SAT 100; BMI 20.2
--- NOTE | 2021-02-13 11:38 | ED.VIS.GI ---
HPI HPI - GI History of Present Illness Chief Complaint: Abd Pain Narrative Narrative: 35-year-old female with history of Crohn's disease presenting with abdominal pain and points to the mid epigastrium. She states is been present for 2 weeks. She is not vomiting. She does admit to diarrhea. No fevers or chills. No black or bloody stool. Patient states she was seen in the ED previously and told she had a viral diarrhea. She has not followed up with anybody since that time because she states she does not have insurance. She does not have a GI doctor. She is not on any long-term medications except for Bentyl which seemed to help. PFSH PFS Medical History Crohn disease Crohn's disease Home Medications ondansetron 4 mg PO Q6H PRN PRN #15 tab 02/04/21 [Rx Last Taken Unknown] oxycodone-acetaminophen 1 tab PO Q6H PRN PRN 3 Days #12 tablet 02/04/21 [Rx Last Taken Unknown] prednisone 60 mg PO DAILY #15 tablet 02/04/21 [Rx Last Taken Unknown] ondansetron 4 mg PO Q8H PRN PRN #20 tab 02/13/21 [Rx Last Taken Unknown] prednisone 10 mg PO DAILY #33 tab 02/13/21 [Rx Last Taken Unknown] Allergy/AdvReac Type Severity Reaction Status Date / Time No Known Allergies Allergy Verified 02/13/21 11:00 Social History Smoking Status: Current every day smoker tobacco type: cigarettes substance use type: does not use ROS ROS ED Constitutional Constitutional ED: Denies chills or fever(s) ENT ENT ED: Denies rhinorrhea or sore throat Cardiovascular Cardiovascular: Denies chest pain or palpitations Respiratory/Chest Respiratory/Chest: Denies cough, dyspnea or sputum Gastrointestinal Gastrointestinal: Reports abdominal pain, diarrhea and nausea; Denies vomiting Genitourinary Genitourinary ED: Denies dysuria Musculoskeletal Musculoskeletal: Denies arthralgias or myalgias Integumentary Denies Abrasions or rash Neurologic Neurologic: Denies headache(s) or paresthesias EXAM Physical Exam Const Vital Signs: 02/13/21 10:59 02/13/21 13:09 Temperature 98.2 F Temperature Source Temporal Pulse Rate 71 Respiratory Rate 16 16 Blood Pressure 97/65 Blood Pressure Mean 75 Pulse Ox 100 Oxygen Delivery Method Room Air Positive well nourished General Appearance ED: NAD; Negative for pallor HEENT Reports moist mucous membranes normocephalic and atraumatic Eyes PERRL and EOMs intact bilaterally General Eye ED: Negative for pale conjunctiva or scleral icterus Resp normal respiratory effort and clear to auscultation bilaterally Cardio regular rate and regular rhythm GI non-distended GI Narrative: Epigastric tenderness. Palpation: soft Neuro CN's II-XII intact bilaterally Sensorium / Orientation: alert, oriented to person, oriented to place and oriented to time Psych mental status grossly normal and thought process normal Skin General Skin Exam: Negative for jaundice or pallor Rashes: no rashes MDM MDM MDM Narrative Medical decision making narrative: Patient with history of Crohn's disease presenting with abdominal pain which has been present for a couple of weeks. She has not had fever but does admit to diarrhea. She is not vomiting. Her CBC shows no leukocytosis or left shift. Hemoglobin appears stable. Renal function and electrolytes are normal. LFTs are normal with exception of an elevated alkaline phosphatase. Urinalysis is negative for infection. hCG is negative. Patient was given morphine and Zofran as well as a liter of IV fluids for pain. The CT of her abdomen pelvis shows ileitis consistent with Crohn's disease. Patient was given Zofran and prednisone for home. Patient does not currently have health insurance but it is trying to get this. When she does get established I did give her a referral for Dr. Mcmillan. She does usually follow-up with [facility] for care and she is encouraged to follow-up with them as well. She is given return precautions. Impression: 1. Crohn's flare 2. Diarrhea Lab Data Labs: Laboratory Results - last 24 hr 02/13/21 02/13/21 02/13/21 11:25 11:33 11:33 WBC 8.9 RBC 4.51 Hgb 12.2 Hct 38.7 MCV 85.8 MCH 27.1 MCHC 31.5 L RDW Std Deviation 42.2 RDW Coeff of Timothy 13.5 Plt Count 338 MPV 9.9 Immature Gran % (Auto) 0.700 Neut % (Auto) 46.1 L Lymph % (Auto) 39.9 [place] % (Auto) 10.0 Eos % (Auto) 2.7 Baso % (Auto) 0.6 Absolute Neuts (auto) 4.1 Absolute Lymphs (auto) 3.54 Nucleated RBC % 0 Sodium 138 Potassium 3.9 Chloride 107 Carbon Dioxide 27.0 Anion Gap 4 L BUN 10 Creatinine 0.59 Estim Creat Clear Calc 111.38 Est GFR (MDRD) Af Amer 148 Est GFR (MDRD) Non-Af 122 BUN/Creatinine Ratio 16.9 Glucose 86 Calcium 8.2 L Total Bilirubin 0.50 AST 42 H ALT 54 Alkaline Phosphatase 123 H Total Protein 7.2 Albumin 2.7 L Globulin 4.5 H Albumin/Globulin Ratio 0.6 L Lipase 203 Serum , Qual Urine Color Yellow Urine Clarity Sl. Cloudy Urine pH 5.0 Ur Specific [place] 1.025 Urine Protein Negative Urine Glucose (UA) Normal Urine Ketones 5 H Urine Occult Blood 10 H Urine Nitrite Negative Urine Bilirubin Negative Urine Urobilinogen Normal Ur Leukocyte Esterase Negative Urine RBC 0-5 SEEN Urine WBC 0-5 SEEN Ur Squamous Epith Cells 0-5 SEEN Urine Bacteria RARE Urine Mucus 0 SEEN 02/13/21 11:58 WBC RBC Hgb Hct MCV MCH MCHC RDW Std Deviation RDW Coeff of Timothy Plt Count MPV Immature Gran % (Auto) Neut % (Auto) Lymph % (Auto) [place] % (Auto) Eos % (Auto) Baso % (Auto) Absolute Neuts (auto) Absolute Lymphs (auto) Nucleated RBC % Sodium Potassium Chloride Carbon Dioxide Anion Gap BUN Creatinine Estim Creat Clear Calc Est GFR (MDRD) Af Amer Est GFR (MDRD) Non-Af BUN/Creatinine Ratio Glucose Calcium Total Bilirubin AST ALT Alkaline Phosphatase Total Protein Albumin Globulin Albumin/Globulin Ratio Lipase Serum , Qual NEGATIVE Urine Color Urine Clarity Urine pH Ur Specific [place] Urine Protein Urine Glucose (UA) Urine Ketones Urine Occult Blood Urine Nitrite Urine Bilirubin Urine Urobilinogen Ur Leukocyte Esterase Urine RBC Urine WBC Ur Squamous Epith Cells Urine Bacteria Urine Mucus Radiography Diagnostic Testing: Radiology Impression Abdomen/Pelvis CT 02/13/21 12:16 IMPRESSION: Terminal ileitis consistent with Crohn''s disease. No abscess or perforation. Electronically Signed: Hakeem Pedro MD at 13:03 EDT Tel , Service support , Discharge Plan Triage Chief Complaint: Abd Pain ED Provider: Joseph Santizo Dx/Rx/DC Orders Prescriptions: New prednisone 10 mg tablet 10 mg PO DAILY Qty: 33 RF: 0 ondansetron 4 mg tablet,disintegrating 4 mg PO Q8H PRN PRN (Reason: Nausea) Qty: 20 RF: 0 No Action oxycodone-acetaminophen [oxycodone-acetaminophen] 1 TABLET tablet 1 tab PO Q6H PRN PRN (Reason: Pain) 3 Days Qty: 12 RF: 0 ondansetron [ondansetron] 4 MG tablet 4 mg PO Q6H PRN PRN (Reason: Nausea) Qty: 15 RF: 0 prednisone 20 MG tablet 60 mg PO DAILY Qty: 15 RF: 0 [facility] Referrals: Friend,DO Usman [STAFF PHYSICIAN] - [facility] Suresh [Primary Care Provider] - Disposition Disposition: Home, Self Care
[2021-02-13] MEDS: Morphine 4 MG/ML Syringe IV (11:44)
[2021-02-13] MEDS: Ondansetron 4 MG/2 ML Vial IV (11:44)
[2021-02-13 11:48] LABS: Absolute Lymphocyte Count 3.54 X10^3/uL (0.83-4.51); Absolute Neutrophil Count 4.1 X10^3/uL (2.0-7.7); Basophil# 0.05 X10^3/uL; Basophil% 0.6 % (0-1); Eosinophil# 0.24 X10^3/uL; Eosinophils% 2.7 % (0-5); Hematocrit 38.7 % (37-47); Hemoglobin 12.2 g/dL (12.0-15.0); Lymphocyte # 3.54 X10^3/ul (0.83-4.51); Lymphocyte % 39.9 % (19-41); Mean Corp Hgb Conc 31.5 g/dL (32-36); Mean Corpuscular Hgb 27.1 pg (27.0-32.0); Mean Corpuscular Volume 85.8 fL (81-99); Mean Platelet Vol. 9.9 fl (6.2-12.0); Monocyte# 0.89 X10^3/uL; NRBC Flagged by Analyzer 0 % (0-5); Neutrophil % 46.1 % (47-70); Platelet Count 338 K/mm3 (150-450); RBC Distribution Width CV 13.5 % (11.6-14.6); RBC Distribution Width SD 42.2 fl (35.1-43.9); Red Blood Count 4.51 M/mm3 (4.2-5.4); White Blood Count 8.9 K/mm3 (4.4-11.0)
[2021-02-13 11:53] LABS: Mucous, Urine 0 SEEN /hpf (<or=2+)
[2021-02-13 11:56] LABS: Color, Urine Yellow (Yellow); Glucose, Dipstick Normal (Normal); Ketone-Dipstick 5 mg/dl (Negative); Leukocyte Esterase-Dipstick Negative /ul (Negative); Nitrite-Dipstick Negative (Negative); Occult Blood-Urine 10 /ul (Negative); Protein-Dipstick Negative (Negative); Specific Gravity, Urine 1.025 (1.002-1.030); Urine Bilirubin Dipstick Negative (Negative); Urine Clarity Sl. Cloudy (Clear); Urine Urobilinogen Normal (Normal)
[2021-02-13 12:01] LABS: ALB/GLOB Ratio 0.6 RATIO (0.9-2.4); AST(SGOT) 42 U/L (15-37); Alanine Aminotransfer ALT/SGPT 54 U/L (13-56); Albumin, Serum 2.7 g/dL (3.2-5.0); Alkaline Phosphatase 123 U/L (45-117); Anion Gap 4 (5-15); BUN 10 mg/dL (7-18); BUN/Creat Ratio 16.9 RATIO (10-20); Calcium,Total 8.2 mg/dL (8.5-10.1); Chloride 107 mmol/L (98-107); Creatinine, Serum 0.59 mg/dL (0.55-1.02); EST Glomerular Filtration Rate 122 mL/min (>60); Est Glom Filt Rate - Afr Amer 148 mL/min (>60); Estimated Creatinine Clearance 111.38 ml/min; Globulin 4.5 g/dL (2.2-4.2); Glucose 86 mg/dL (74-106); Lipase 203 U/L (73-393); Potassium 3.9 mmol/L (3.5-5.1); Protein, Total 7.2 g/dL (6.4-8.2); Sodium Level 138 mmol/L (136-145)
[2021-02-13 12:05] LABS: Bacteria RARE /hpf (None Seen); Red Blood Cells-Urine 0-5 SEEN /hpf (0-5); Squamous Epithelial Cells - UA 0-5 SEEN /hpf (5-10); White Blood Cells 0-5 SEEN /hpf (0-5)
[2021-02-13 12:13] LABS: Internal QC Validated? YES +Cl - CLEAR BKGD
[2021-02-13 12:14] LABS: Pregnancy, Serum, hCG Quali. NEGATIVE Negative
[2021-02-13] MEDS: 0.9% Normal Saline 1,000 ML 999 ML IV (12:15)
--- NOTE | 2021-02-13 12:16 | CT_ITS ---
STUDY: CT ABDOMEN AND PELVIS WITH CONTRAST REASON FOR EXAM: Female, 35 years old. abdominal pain RADIATION DOSAGE (If Supplied By Facility): CTDIvol = ( 16.42 ) mGy, DLP = ( 321.88 ) mGycm TECHNIQUE: Transaxial images were obtained from the dome of the diaphragm to the symphysis pubis without oral contrast. IV 100mL Isovue-300 was administered. Sagittal and coronal images were reconstructed. Individualized dose optimization techniques were used for this CT. COMPARISON: 02/04/2021 FINDINGS: The visualized lung bases are unremarkable. The visualized portions of the heart are within normal limits. Normal liver. Normal gallbladder and extrahepatic biliary system. Normal spleen. Normal pancreas. Normal bilateral adrenal glands. Normal right kidney. Normal left kidney. Normal visualized stomach. The distal ileum demonstrates mild dilatation with wall thickening consistent with a history of Crohn''s disease. Mild stranding of the surrounding fat. No loculated fluid collection to suggest abscess. No pneumoperitoneum to suggest perforation. Normal colon. There is non-visualization of the appendix. Normal abdominal aorta. Normal inferior vena cava. Normal retroperitoneum. Normal urinary bladder. Normal abdominal wall. Normal osseous structures. CT/Abdomen/Pelvis W IV Cont ONLY IMPRESSION: Terminal ileitis consistent with Crohn''s disease. No abscess or perforation. Electronically Signed: Hakeem Pedro MD at 13:03 EDT Tel , Service support ,
[2021-02-13 13:09] VITALS: RESP 16
[2021-02-13] MEDS: MethylPREDNISolone 125 MG/2 ML Vial IV (14:03)
== END 2021-02-13 14:26 | disposition home or self-care (01) ==
PROVIDERS: Emergency Provider Student in an Organized Health Care Education/Training Program
DX: K50.00 Crohn's disease of small intestine without complications (principal); F17.210 Nicotine dependence, cigarettes, uncomplicated
CPT/HCPCS: 74177; 80053; 81001; 83690; 84703; 85025; 96361; 96374; 96375; 99285; J7030; Q9967; A4216; J2405

== ENCOUNTER 2021-03-19 12:15 | Day surgery (SDC) | payer MEDICAID, SELFPAY ==
[2021-03-19 13:00] VITALS: BP 87/61; PULSE 111; RESP 16; TEMP 37; O2SAT 99; BMI 21.2
[2021-03-19] MEDS: Lactated Ringers 1,000 ML 100 ML IV (13:00)
--- NOTE | 2021-03-19 13:15 | IMM_PTH ---
PATIENT: WESTLEY SELLERS LOC: EN U#:[id number] AGE/SX: 35/F ROOM: RE03/19/[address]: Dr. Usman Mcmillan DO : 1985 BED: DIS: 03/19/2021 SPEC #: [id number] RECD: 03/20/21 10:16 STATUS: EVAN REQ #: [id number] STEPHANIE: 03/19/21 13:[address]: Usman Mcmillan DEPT: IMMUNOHISTOCHEMISTRY RECD BY: Maricruz Garcia ENTERED: 03/20/21 10:17 SP TYPE: IMMUNO OTHR DR: Cyndie Castro, [place] [employer]-C [facility] Tissues: A - Stomach, NOS Procedures: H Pylori (initial) PHYSICIAN & INSTITUTION [place] [id number] SPECIMEN INFORMATION: Tissue Source: A ? Antrum biopsy Clinical Info: Crohn?s disease Specimen Number: [id number] CPT code: 33255 METHODOLOGY: Deparaffinized sections of prefer/formalin-fixed tissue or PAP/DQ stained slides are incubated with monoclonal/polyclonal antibodies/oligonucleotide probes. Localization is made via biotin free immunoperoxidase method. Appropriate controls are performed and reacted as expected. Results on target cell population are indicated in the following table: RESULTS: ANTIBODY / CLONE RESULT Block A H Pylori (polyclonal) negative These tests were developed and their performance characteristics determined by [facility]. They may not have been cleared or approved by the U.S. Food and Drug Administration. The FDA has determined that such clearance or approval is not necessary. INTERPRETATION: A. Antrum biopsy: Negative for Helicobacter pylori organisms. ROSETTA:walter 03/21/2021
--- NOTE | 2021-03-19 13:15 | EGD_PTH ---
PATIENT: WESTLEY SELLERS LOC: EN U#:[id number] AGE/SX: 35/F ROOM: RE03/19/[address]: Dr. Usman Mcmillan DO : 1985 BED: DIS: 03/19/2021 SPEC #: [id number] RECD: 03/19/21 17:04 STATUS: EVAN COLEEN #: [id number] STEPHANIE: 03/19/21 13:[address]: Usman Mcmillan DEPT: SURGICAL PATHOLOGY RECD BY: Orin Leger ENTERED: 03/20/21 08:57 SP TYPE: EGD BIOPSY OT DR: Cyndie Castro, MECH[employer]ICAL ENERGY ENGINEER-C [facility] Tissues: A - Gastric mucous membrane B - Duodenum, NOS C - Ascending colon D - Transverse colon E - Descending colon F - Sigmoid colon biopsy G - Rectum, NOS Procedures: Surgery Specimen Level IV HEADER OPERATION: Colonoscopy, EGD ([facility] [place]) PRE-OP DIAGNOSIS: Crohn?s disease TISSUE SUBMITTED: A - Antrum, H. pylori and path, B - Duodenum biopsy, C - Ascending colon biopsy, D - Transverse colon biopsy, E - Descending colon biopsy, F - Sigmoid colon biopsy, G - Rectum biopsy MICROSCOPIC DIAGNOSIS A. Antrum, biopsy: Mild gastritis. See microscopic description and comment. B. Duodenum, biopsy: Fragments of duodenal mucosa, no pathologic diagnosis. C. Ascending colon, biopsy: Fragments of colonic mucosa with minimal glandular distortion. Negative for active inflammation. D. Transverse colon, biopsy: Fragments of colonic mucosa with minimal glandular distortion. Negative for active inflammation. E. Descending colon, biopsy: Focal acute colitis. See microscopic description and comment. F. Sigmoid colon, biopsy: Fragments of colonic mucosa, no pathologic diagnosis. G. Rectum, biopsy: Fragments of colonic mucosa, no pathologic diagnosis. SJ:walter 03/21/2021 COMMENT A. The results of immunohistochemistry for Helicobacter pylori will be reported separately ([id number]). Correlation with clinical, endoscopic findings and appropriate follow up are necessary. Please make reference to previous specimen ([id number]) random biopsies with diagnosis of ?chronic active colitis.? MICROSCOPIC DESCRIPTION Slides are reviewed. A. The specimen shows fragments of gastric mucosa with chronic inflammatory cell infiltrates in the lamina propria consisting of lymphocytes and plasma cells, consistent with mild chronic gastritis. E. The specimen shows fragments of colonic mucosa with focal crypt abscesses and focal changes suspicious for granuloma formation. Significant glandular distortion is not seen. No evidence of dysplasia. GROSS DESCRIPTION A - Received in fixative is one container labeled with the patient's name and designated antrum biopsy. The specimen consists of multiple irregular fragments of light yi soft tissue that in aggregate measure 1 x 0.5 x 0.1 cm. The specimen is totally submitted in one cassette. B - Received in fixative is one container labeled with the patient's name and designated duodenum biopsy. The specimen consists of multiple irregular fragments of light yi soft tissue that in aggregate measure 0.6 x 0.6 x 0.1 cm. The specimen is totally submitted in one cassette. C - Received in fixative is one container labeled with the patient's name and designated ascending colon biopsy. The specimen consists of two irregular fragments of light yi soft tissue that in aggregate measure 0.5 x 0.2 x 0.1 cm. The specimen is totally submitted in one cassette. D - Received in fixative is one container labeled with the patient's name and designated transverse colon biopsy. The specimen consists of multiple irregular fragments of light yi soft tissue that in aggregate measure 0.6 x 0.3 x 0.1 cm. The specimen is totally submitted in one cassette. E - Received in fixative is one container labeled with the patient's name and designated descending colon biopsy. The specimen consists of multiple irregular fragments of light yi soft tissue that in aggregate measure 0.6 x 0.2 x 0.1 cm. The specimen is totally submitted in one cassette. F - Received in fixative is one container labeled with the patient's name and designated sigmoid colon biopsy. The specimen consists of multiple irregular fragments of light yi soft tissue that in aggregate measure 1 x 0.3 x 0.1 cm. The specimen is totally submitted in one cassette. G - Received in fixative is one container labeled with the patient's name and designated rectum biopsy. The specimen consists of multiple irregular fragments of light yi soft tissue that in aggregate measure 0.6 x 0.5 x 0.1 cm. The specimen is totally submitted in one cassette. / SJ:walter 03/20/21 TC:2 CPT: 12974 x7
--- NOTE | 2021-03-19 14:38 | PCM.HP.BLA ---
History and Physical Date of Admission: 03/19/21 Details: WESTLEY SELLERS, is a 35 F who presents to the office today for the evaluation of Crohn's disease and management. She was diagnosed during colonoscopy during in patient stay in 2017. She thinks she had another colonoscopy since then. She is having a lot of cramping and sharp pain in LLQ and occasionally RLQ. Constipation in the last week related to a housing change. Typically she has 2-3 loose bowel movements a day. States she feels full quickly and bloated. Reports some blood in stool, denies mucous. States she has hemorrhoids that do give her difficulty. History of drug use and started treatment and [employer] last week. 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 Sometimes drinks but this causes difficultly with her stomach so she avoids it. She was in the emergency room recentlywith vomiting and diarrhea. Patient states that the day prior to being seen in the ED. She began to have vomiting and diarrhea for no apparent reason. She noticed that she was losing her voice. She denies any fevers, runny nose, cough. She notes lower abdominal pain. She has a history of Crohn's which is gone untreated for the past several years due to health insurance issues. She describes the diarrhea as green and watery. Typically her Crohn's flareups are not this consistency. She does not typically throw up with her Crohn's. She has been able to drink fluids and states that she has been urinating normally. A CT scan abdomen pelvis was ordered and it showed thickening in the colon possibly consistent with her Crohn's disease. She was given [place] and prednisone and told to follow-up with GI. ROS Const Constitutional: Positive for fatigue Gastro GI: Positive for abdominal pain, bloating, constipation and Blood in stool Genitourinary-Female: Positive for genital itching Musc Musculoskeletal: Positive for back pain Psych Psychiatric: Positive for depression and Positive for inattentiveness Endo Endocrine: Positive for fatigue and increased thirst/drinking Exam Const General: cooperative and comfortable Nutritional Appearance: average body habitus and well nourished [facility] Head: normal to inspection Ears: hearing grossly normal bilaterally Nose: external nose normal Face and sinus: normal facial exam Mouth: oral mucosae normal Throat: posterior oropharynx normal Eyes General: appearance normal, both eyes and all related structures Neck Neck: normal visual inspection Chest Chest palpation & inspection: normal inspection of the chest and normal palpation of entire chest wall Resp Effort & Inspection: normal respiratory effort Auscultation: Bilateral: Clear to Auscultation Cardio Palpation: normal PMI Rate: regular rate Rhythm: regular rhythm GI Inspection: normal to inspection Auscultation: normal bowel sounds Percussion: normal to percussion Palpation: no hepatosplenomegaly Skin General: no rashes or lesions noted Neuro General: patient alert Extrem General: normal to inspection Psych Affect: normal affect Quality Reporting Tobacco Screening ([facility] 138) Smoking Status: Current every day smoker Assessment and Plan Assessment and Plan (1) Crohn's disease: Status: Acute Plan - Dr. Mary Friend, DO: Her symptoms could be possibly secondary to Crohn's disease. This also could be from a drug-induced inflammatory reaction that resembles a Sirs reaction causing ischemia to areas of the GI tract. We will need to investigate further with an upper and lower endoscopy so we can see if she truly has Crohn's disease and also to see if there is any signs of infectious colitis or enterocolitis.
--- NOTE | 2021-03-19 15:10 | OP.EGD_ITS ---
Patient Name: Sandra Napier Procedure Date: 03/19/2021 2:26 PM Date of : 1985 Age: 35 Procedure: Upper GI endoscopy Indications: Lower abdominal pain Providers: Usman Mcmillan DO Medicines: General Anesthesia, See the Anesthesia note for documentation of the administered medications Patient Profile: This is a 35 year old female. Refer to note in patient chart for documentation of history and physical. Patient has symptoms. Complications: No immediate complications. Procedure: Pre-Anesthesia Assessment: - Prior to the procedure, a History and Physical was performed, and patient medications and allergies were reviewed. The patient is competent. The risks and benefits of the procedure and the sedation options and risks were discussed with the patient. All questions were answered and informed consent was obtained. Patient identification and proposed procedure were verified by the physician in the pre-procedure area. Mental Status Examination: alert and oriented. Airway Examination: normal oropharyngeal airway and neck mobility. Respiratory Examination: clear to auscultation. CV Examination: normal. Prophylactic Antibiotics: The patient does not require prophylactic antibiotics. Prior Anticoagulants: The patient has taken no previous anticoagulant or antiplatelet agents. ASA Grade Assessment: II - A patient with mild systemic disease. After reviewing the risks and benefits, the patient was deemed in satisfactory condition to undergo the procedure. The anesthesia plan was to use moderate sedation / analgesia (conscious sedation). Immediately prior to administration of medications, the patient was re-assessed for adequacy to receive sedatives. The heart rate, respiratory rate, oxygen saturations, blood pressure, adequacy of pulmonary ventilation, and response to care were monitored throughout the procedure. The physical status of the patient was re-assessed after the procedure. After obtaining informed consent, the endoscope was passed under direct vision. Throughout the procedure, the patient's blood pressure, pulse, and oxygen saturations were monitored continuously. The pediatric colonoscope was introduced through the mouth, and advanced to the second part of duodenum. The upper GI endoscopy was accomplished without difficulty. The patient tolerated the procedure well. Moderate Sedation: Moderate (conscious) sedation was administered by the endoscopy nurse and supervised by the endoscopist. The patient's oxygen saturation, heart rate, blood pressure and response to care were monitored. Total physician intraservice time was 15 minutes. Scope In: 2:43:21 PM Scope Out: 2:48:43 PM Total Procedure Duration Time 0 hours 5 minutes 22 seconds Findings: The examined esophagus was normal. Localized mild inflammation characterized by erosions was found on the anterior wall of the gastric antrum. Biopsies were taken with a cold forceps for histology. Verification of patient identification for the specimen was done. Estimated blood loss was minimal. Localized mild inflammation characterized by congestion (edema) was found in the duodenal bulb. Biopsies were taken with a cold forceps for histology. Verification of patient identification for the specimen was done. Estimated blood loss was minimal. Impression: - Normal esophagus. - Gastritis. Biopsied. - Duodenitis. Biopsied. Recommendation: - Discharge patient to home. - Resume previous diet. - Continue present medications. - Use Protonix (pantoprazole) 40 mg PO daily for 8 weeks. Procedure Code(s): --- Professional --- 16277, Esophagogastroduodenoscopy, flexible, transoral; with biopsy, single or multiple G0500, Moderate sedation services provided by the same physician or other qualified health early breastfeeding care specialist performing a gastrointestinal endoscopic service that sedation supports, requiring the presence of an independent trained observer to assist in the monitoring of the patient's level of consciousness and physiological status; initial 15 minutes of intra-service time; patient age 5 years or older (additional time may be reported with 43648, as appropriate) CPT copyright 2017 [employer]. All rights reserved. The codes documented in this report are preliminary and upon dough brake machine operator review may be revised to meet current compliance requirements. Usman Mcmillan DO 03/19/2021 3:09:58 PM This report has been signed electronically. Number of Addenda: 1 Note Initiated On: 03/19/2021 2:26 PM Addendum Number: 1 Addendum Date: 01/10/2022 6:19:56 AM MAC was used instead of moderate sedation for this patient. Usman Mcmillan DO 01/10/2022 6:20:04 AM This report has been signed electronically.
--- NOTE | 2021-03-19 15:10 | OP.CCLET_ITS ---
01/10/2022 Leana Suresh [facility] Re : [facility] This procedure was performed on Friday, March 19, 2021. My impressions and recommendations are as follows: Impressions : - Normal esophagus. - Gastritis. Biopsied. - Duodenitis. Biopsied. Recommendations : - Discharge patient to home. - Resume previous diet. - Continue present medications. - Use Protonix (pantoprazole) 40 mg PO daily for 8 weeks. My findings are described in the full procedure note, which is enclosed. If I can be of further assistance, please feel free to contact me at . Sincerely, Usman Mcmillan, 03/19/2021 3:09:58 PM This report has been signed electronically.
[2021-03-19 15:11] VITALS: BP 87/61; BP 92/60; PULSE 76; RESP 12; TEMP 36.1; O2SAT 100
[2021-03-19 15:15] VITALS: BP 87/61; BP 94/59; PULSE 75; RESP 12; O2SAT 100
--- NOTE | 2021-03-19 15:16 | OP.COLON_ITS ---
Patient Name: Sandra Napier Procedure Date: 03/19/2021 2:48 PM Date of : 1985 Age: 35 Procedure: Colonoscopy Indications: This is the patient's first colonoscopy Providers: Usman Mcmillan DO Medicines: See the Anesthesia note for documentation of the administered medications Patient Profile: This is a 35 year old female. Refer to note in patient chart for documentation of history and physical. Patient has symptoms. Last Colonoscopy: none. The patient's first colonoscopy is today. Complications: No immediate complications. Procedure: Pre-Anesthesia Assessment: - Prior to the procedure, a History and Physical was performed, and patient medications and allergies were reviewed. The patient is competent. The risks and benefits of the procedure and the sedation options and risks were discussed with the patient. All questions were answered and informed consent was obtained. Patient identification and proposed procedure were verified by the physician in the pre-procedure area. Mental Status Examination: alert and oriented. Airway Examination: normal oropharyngeal airway and neck mobility. Respiratory Examination: clear to auscultation. CV Examination: normal. Prophylactic Antibiotics: The patient does not require prophylactic antibiotics. Prior Anticoagulants: The patient has taken no previous anticoagulant or antiplatelet agents. ASA Grade Assessment: II - A patient with mild systemic disease. After reviewing the risks and benefits, the patient was deemed in satisfactory condition to undergo the procedure. The anesthesia plan was to use moderate sedation / analgesia (conscious sedation). Immediately prior to administration of medications, the patient was re-assessed for adequacy to receive sedatives. The heart rate, respiratory rate, oxygen saturations, blood pressure, adequacy of pulmonary ventilation, and response to care were monitored throughout the procedure. The physical status of the patient was re-assessed after the procedure. After I obtained informed consent, the scope was passed under direct vision. Throughout the procedure, the patient's blood pressure, pulse, and oxygen saturations were monitored continuously. The pediatric colonoscope was introduced through the anus and advanced to the cecum, identified by appendiceal orifice and ileocecal valve. The colonoscopy was performed without difficulty. The patient tolerated the procedure well. The quality of the bowel preparation was good. Moderate Sedation: Moderate (conscious) sedation was administered by the endoscopy nurse and supervised by the endoscopist. The patient's oxygen saturation, heart rate, blood pressure and response to care were monitored. Total physician intraservice time was 15 minutes. Scope In: 2:51:45 PM Scope Withdrawal Time 0 hours 6 minutes 15 seconds Scope Out: 3:05:01 PM Total Procedure Duration Time 0 hours 13 minutes 16 seconds Findings: Hemorrhoids were found on perianal exam. The Simple Endoscopic Score for Crohn's Disease was determined based on the endoscopic appearance of the mucosa in the following segments: - Ileum: Findings include ulcers greater than 2 cm in size, greater than 30% ulcerated surfaces, greater than 75% of surfaces affected and multiple narrowings that can be passed. Segment score: 11. - Right Colon: Findings include ulcers greater than 2 cm in size, greater than 30% ulcerated surfaces, greater than 75% of surfaces affected and multiple narrowings that can be passed. Segment score: 11. - Transverse Colon: Findings include ulcers greater than 2 cm in size, greater than 30% ulcerated surfaces, greater than 75% of surfaces affected and multiple narrowings that can be passed. Segment score: 11. - Left Colon: Findings include aphthous ulcers less than 0.5 cm in size, 10-30% ulcerated surfaces, less than 50% of surfaces affected and no narrowings. Segment score: 4. - Rectum: Findings include no ulcers present, no ulcerated surfaces, no affected surfaces and no narrowings. Segment score: 0. - Total SES-CD aggregate score: 37. Biopsies were taken with a cold forceps for histology. Verification of patient identification for the specimen was done. Estimated blood loss was minimal. A 10 mm scar was found in the mid transverse colon. Adjacent mucosal findings include inflammation. Impression: - Hemorrhoids found on perianal exam. - Simple Endoscopic Score for Crohn's Disease: 37, mucosal inflammatory changes secondary to Crohn's disease and secondary to Crohn's disease, with ileitis and colitis. Biopsied. - Scar in the mid transverse colon. Recommendation: - Discharge patient to home. - Resume regular diet. - Use prednisone 40 mg PO once a day for 4 weeks. - Repeat colonoscopy in 6 months for surveillance based on pathology results. - Continue present medications. Procedure Code(s): --- Professional --- 90119, Colonoscopy, flexible; with biopsy, single or multiple G0500, Moderate sedation services provided by the same physician or other qualified health home health care worker performing a gastrointestinal endoscopic service that sedation supports, requiring the presence of an independent trained observer to assist in the monitoring of the patient's level of consciousness and physiological status; initial 15 minutes of intra-service time; patient age 5 years or older (additional time may be reported with 25165, as appropriate) CPT copyright 2017 [employer]. All rights reserved. The codes documented in this report are preliminary and upon cardroom plastic card grader review may be revised to meet current compliance requirements. Usman Mcmillan DO 03/19/2021 3:15:34 PM This report has been signed electronically. Number of Addenda: 1 Note Initiated On: 03/19/2021 2:48 PM Addendum Number: 1 Addendum Date: 01/10/2022 6:20:13 AM MAC was used instead of moderate sedation for this patient. Usman Mcmillna DO 01/10/2022 6:20:18 AM This report has been signed electronically.
--- NOTE | 2021-03-19 15:16 | OP.CCLET_ITS ---
01/10/2022 Leana Suresh [facility] Re : [facility] This procedure was performed on Friday, March 19, 2021. My impressions and recommendations are as follows: Impressions : - Hemorrhoids found on perianal exam. - Simple Endoscopic Score for Crohn's Disease: 37, mucosal inflammatory changes secondary to Crohn's disease and secondary to Crohn's disease, with ileitis and colitis. Biopsied. - Scar in the mid transverse colon. Recommendations : - Discharge patient to home. - Resume regular diet. - Use prednisone 40 mg PO once a day for 4 weeks. - Repeat colonoscopy in 6 months for surveillance based on pathology results. - Continue present medications. My findings are described in the full procedure note, which is enclosed. If I can be of further assistance, please feel free to contact me at . Sincerely, Usman Friend, 03/19/2021 3:15:34 PM This report has been signed electronically.
[2021-03-19 15:24] VITALS: BP 87/61; BP 97/74; PULSE 66; RESP 18; TEMP 36.1; O2SAT 100
[2021-03-19 16:30] VITALS: BP 87/61
== END 2021-03-19 16:30 | disposition home or self-care (01) ==
LOC: EN 12:20 → AC 12:21
PROVIDERS: Visit Provider Internal Medicine Gastroenterology
PROC: 0DJD8ZZ Inspection of Lower Intestinal Tract, Via Natural or Artificial Opening Endoscopic (ICD-10-PCS; CPT 45378; principal; 2021-03-19 13:10)
DX: K29.70 Gastritis, unspecified, without bleeding (principal); K29.80 Duodenitis without bleeding; K50.90 Crohn's disease, unspecified, without complications; K64.9 Unspecified hemorrhoids; F17.200 Nicotine dependence, unspecified, uncomplicated
CPT/HCPCS: 43239; 45380; 88305; 88342; J7120; J2405

== ENCOUNTER → 2021-03-28 10:43 | Outpatient (CLI) | payer MEDICAID, SELFPAY ==
[2021-03-28 11:43] LABS: Erythrocyte Sedimentation Rate 11 mm/hr (0-30)
[2021-03-28 11:46] LABS: Absolute Lymphocyte Count 1.88 X10^3/uL (0.83-4.51); Absolute Neutrophil Count 11.9 X10^3/uL (2.0-7.7); Basophil# 0.05 X10^3/uL; Basophil% 0.3 % (0-1); Eosinophil# 0.03 X10^3/uL; Eosinophils% 0.2 % (0-5); Hemoglobin 11.7 g/dL (12.0-15.0); Lymphocyte # 1.88 X10^3/ul (0.83-4.51); Lymphocyte % 13.1 % (19-41); Mean Corp Hgb Conc 31.6 g/dL (32-36); Mean Corpuscular Hgb 27.3 pg (27.0-32.0); Mean Corpuscular Volume 86.4 fL (81-99); Mean Platelet Vol. 10.7 fl (6.2-12.0); Monocyte% 2.1 % (0-10); NRBC Flagged by Analyzer 0 % (0-5); Neutrophil # 11.94 X10^3/uL (2.7-7.7); Neutrophil % 83.5 % (47-70); Platelet Count 337 K/mm3 (150-450); RBC Distribution Width CV 15.5 % (11.6-14.6); RBC Distribution Width SD 48.5 fl (35.1-43.9); Red Blood Count 4.28 M/mm3 (4.2-5.4); White Blood Count 14.3 K/mm3 (4.4-11.0)
[2021-03-28 12:13] LABS: ALB/GLOB Ratio 0.7 RATIO (0.9-2.4); AST(SGOT) 11 U/L (15-37); Alanine Aminotransfer ALT/SGPT 20 U/L (13-56); Albumin, Serum 2.9 g/dL (3.2-5.0); Alkaline Phosphatase 108 U/L (45-117); Anion Gap 7 (5-15); BUN 13 mg/dL (7-18); BUN/Creat Ratio 21.4 RATIO (10-20); CRP 4.79 mg/L (0.0-3.0); Calcium,Total 9.1 mg/dL (8.5-10.1); Chloride 105 mmol/L (98-107); Creatinine, Serum 0.61 mg/dL (0.55-1.02); EST Glomerular Filtration Rate 118 mL/min (>60); Est Glom Filt Rate - Afr Amer 143 mL/min (>60); Globulin 4.3 g/dL (2.2-4.2); Glucose 100 mg/dL (74-106); Potassium 3.9 mmol/L (3.5-5.1); Protein, Total 7.2 g/dL (6.4-8.2); Sodium Level 138 mmol/L (136-145)
== END ==
PROVIDERS: Referring Provider Internal Medicine Gastroenterology; Visit Provider Internal Medicine Gastroenterology
DX: K50.90 Crohn's disease, unspecified, without complications (principal)
CPT/HCPCS: 36415; 80053; 85025; 85652; 86140

== ENCOUNTER 2021-04-14 18:46 | Emergency (ER) | payer MEDICAID, SELFPAY ==
[2021-04-14 18:47] VITALS: BP 113/71; PULSE 76; RESP 13; TEMP 36.8; O2SAT 100; BMI 24.9
--- NOTE | 2021-04-14 19:09 | ED.VIS.GI ---
HPI HPI - GI History of Present Illness Chief Complaint: GI Bleed Informant: patient Narrative Narrative: Patient is a 35-year-old female with history of Crohn's disease as well as cystic fibrosis and substance abuse presenting with bright red blood per rectum and abdominal pain. She states she is concerned she is having a Crohn's flare. She started having abdominal pain and cramping today. It is worse in her lower abdomen and worse on the right. She notes that she been having a lot of diarrhea but attributed to her new Crohn's medication, Imuran. In addition patient is on daily prednisone. Patient notes she stopped taking her Imuran 2 days ago because of side effects including headache and diarrhea. She denies any prior black in her stool. She states when she went to the bathroom a second time today there was blood sprain out of her rectum. This concerned her because is never happened before. She notes she felt fine yesterday. She denies feeling lightheaded. She is on any blood thinners. States the abdominal pain feels like prior Crohn's flares. No report of any fever. [facility] Medical History Arthritis Back pain Complete edentulism, class III Cystic fibrosis Depression Drug abuse Easy bruising Excessive bleeding History of Crohn's disease History of steroid therapy Low iron MRSA (methicillin resistant staph aureus) culture positive Open wound Pilonidal cyst without mention of abscess Smoker Substance abuse Home Medications dicyclomine 20 mg tablet 20 mg PO TID #90 tab 03/18/21 [Rx Last Taken 03/19/21 07:30] prednisone 20 mg tablet 60 mg PO DAILY #90 tab 03/22/21 [Rx Last Taken Unknown] ciprofloxacin HCl [Cipro] 500 mg PO Q12H #14 tab 04/14/21 [Rx Last Taken Unknown] metronidazole 500 mg PO BID 7 Days #14 tab 04/14/21 [Rx Last Taken Unknown] prednisone 80 mg PO DAILY #28 tab 04/14/21 [Rx Last Taken Unknown] vancomycin [Vancocin] 125 mg PO Q6H 14 Days #56 cap 04/14/21 [Rx Last Taken Unknown] Allergy/AdvReac Type Severity Reaction Status Date / Time No Known Allergies Allergy Verified 03/15/21 10:50 Surgical History History of appendectomy History of colonoscopy History of partial hysterectomy Social History Smoking Status: Current every day smoker tobacco type: cigarettes substance use type: does not use ROS ROS ED Constitutional Constitutional ED: Denies chills or fever(s) ENT ENT ED: Denies rhinorrhea or sore throat Cardiovascular Cardiovascular: Denies chest pain Respiratory/Chest Respiratory/Chest: Denies cough or dyspnea Gastrointestinal Gastrointestinal: Reports abdominal pain, diarrhea and other Details: Bright red blood per rectum ; Denies nausea or vomiting Musculoskeletal Musculoskeletal: Denies arthralgias or myalgias Integumentary Denies rash Neurologic Neurologic: Denies headache(s) or weakness Psychiatric Psychiatric: Denies depression EXAM Physical Exam Const Vital Signs: 04/14/21 18:47 04/14/21 21:00 Temperature 98.3 F Temperature Source Oral Pulse Rate 76 65 Respiratory Rate 13 16 Blood Pressure 113/71 99/66 Blood Pressure Mean 85 77 Pulse Ox 100 98 Oxygen Delivery Method Room Air Room Air Positive well nourished and well developed General Appearance ED: well developed HEENT Reports moist mucous membranes normocephalic and atraumatic Eyes PERRL and EOMs intact bilaterally General Eye ED: Negative for pale conjunctiva Neck supple and no JVD Resp normal respiratory effort and clear to auscultation bilaterally Cardio regular rate, regular rhythm and no murmurs GI non-distended GI Narrative: On rectal exam patient has enlarged and very painful external hemorrhoids. She does not tolerate an internal exam. I do not see any active bleeding. No signs of thrombosed hemorrhoids. Auscultation: hypoactive bowel sounds Palpation: soft and tender RLQ and suprapubic; Negative for guarding or rigid Back/Spine no CVA tenderness Extremity full ROM General Extremety ED: Negative for edema or tenderness General Extremity: Negative for edema Neuro gait normal Sensorium / Orientation: alert Motor Exam: Negative for general weakness Psych mental status grossly normal Skin no wounds Lesions: no lesions Rashes: no rashes MDM MDM MDM Narrative Medical decision making narrative: Patient is evaluated for bright red blood per rectum in the setting of abdominal pain. She has known Crohn's disease. She has been compliance per the patient with her 60 mg daily of prednisone. She stopped taking Imuran because she felt it was causing her diarrhea. Her white blood cell count is normal. Kidney function is normal. No significant electrolyte abnormalities. She does have a mild anemia 11.0 however it is close to her baseline. She is not lightheaded and is hemodynamically stable. I do not think she is in any type of hemorrhagic shock. She has no bleeding while in the emergency room. I do question if the blood in her stool could be hemorrhoidal bleeding versus Crohn's flare. Lactate is normal. Urinalysis is consistent with trichomonas. She'll be treated with a course of Flagyl. Case is discussed with her GI doctor, Dr. Mcmillan, who recommended adding on an ESR and CRP. As these are now uptrending will cover with Cipro and Flagyl. Will increase to 80 mg daily of prednisone and give her one-time dose of 80 mg IV Solu-Medrol. In addition he recommends starting her on oral vancomycin for possible subclinical C. difficile given that fact that she has been having diarrhea. Patient is agreeable this plan of care. She is given a dose of Bentyl as well for pain control. Counseled on return precautions. Instructed to follow-up closely with her GI doctor. Lab Data Labs: Laboratory Results - last 24 hr 04/14/21 04/14/21 04/14/21 19:15 19:40 19:40 WBC 7.4 RBC 4.07 L Hgb 11.0 L Hct 34.8 L MCV 85.5 MCH 27.0 MCHC 31.6 L RDW Std Deviation 47.7 H RDW Coeff of Timothy 15.0 H Plt Count 272 MPV 10.5 Immature Gran % (Auto) 0.700 Neut % (Auto) 73.1 H Lymph % (Auto) 19.9 Latimer % (Auto) 6.2 Eos % (Auto) 0.0 Baso % (Auto) 0.1 Absolute Neuts (auto) 5.4 Absolute Lymphs (auto) 1.47 Nucleated RBC % 0 Differential Comment SCANNED ESR Sodium 140 Potassium 4.1 Chloride 109 H Carbon Dioxide 26.0 Anion Gap 5 BUN 13 Creatinine 0.51 L Estim Creat Clear Calc 131.69 Est GFR (MDRD) Af Amer 173 Est GFR (MDRD) Non-Af 143 BUN/Creatinine Ratio 25.3 H Glucose 134 H Lactic Acid Calcium 8.2 L Total Bilirubin 0.20 AST 14 L ALT 19 Alkaline Phosphatase 112 C-React Prot Ext Range Total Protein 6.8 Albumin 2.8 L Globulin 4.0 Albumin/Globulin Ratio 0.7 L Lipase 156 Urine Color Yellow Urine Clarity Cloudy Urine pH 6.5 Ur Specific Sheldon 1.015 Urine Protein 15 H Urine Glucose (UA) Normal Urine Ketones 5 H Urine Occult Blood 10 H Urine Nitrite Negative Urine Bilirubin Negative Urine Urobilinogen 1 H Ur Leukocyte Esterase 25 H Urine RBC 0-5 SEEN Urine WBC 0-5 SEEN Ur Squamous Epith Cells 5-10 SEEN Urine Bacteria 0 SEEN Urine Mucus 1+ Urine Trichomonas 0-5 SEEN 04/14/21 04/14/21 04/14/21 19:40 19:40 19:40 WBC RBC Hgb Hct MCV MCH MCHC RDW Std Deviation RDW Coeff of Timothy Plt Count MPV Immature Gran % (Auto) Neut % (Auto) Lymph % (Auto) Latimer % (Auto) Eos % (Auto) Baso % (Auto) Absolute Neuts (auto) Absolute Lymphs (auto) Nucleated RBC % Differential Comment ESR 22 Sodium Potassium Chloride Carbon Dioxide Anion Gap BUN Creatinine Estim Creat Clear Calc Est GFR (MDRD) Af Amer Est GFR (MDRD) Non-Af BUN/Creatinine Ratio Glucose Lactic Acid Cancelled Calcium Total Bilirubin AST ALT Alkaline Phosphatase C-React Prot Ext Range 21.70 H Total Protein Albumin Globulin Albumin/Globulin Ratio Lipase Urine Color Urine Clarity Urine pH Ur Specific Sheldon Urine Protein Urine Glucose (UA) Urine Ketones Urine Occult Blood Urine Nitrite Urine Bilirubin Urine Urobilinogen Ur Leukocyte Esterase Urine RBC Urine WBC Ur Squamous Epith Cells Urine Bacteria Urine Mucus Urine Trichomonas 04/14/21 19:58 WBC RBC Hgb Hct MCV MCH MCHC RDW Std Deviation RDW Coeff of Timothy Plt Count MPV Immature Gran % (Auto) Neut % (Auto) Lymph % (Auto) Latimer % (Auto) Eos % (Auto) Baso % (Auto) Absolute Neuts (auto) Absolute Lymphs (auto) Nucleated RBC % Differential Comment ESR Sodium Potassium Chloride Carbon Dioxide Anion Gap BUN Creatinine Estim Creat Clear Calc Est GFR (MDRD) Af Amer Est GFR (MDRD) Non-Af BUN/Creatinine Ratio Glucose Lactic Acid 1.1 Calcium Total Bilirubin AST ALT Alkaline Phosphatase C-React Prot Ext Range Total Protein Albumin Globulin Albumin/Globulin Ratio Lipase Urine Color Urine Clarity Urine pH Ur Specific Sheldon Urine Protein Urine Glucose (UA) Urine Ketones Urine Occult Blood Urine Nitrite Urine Bilirubin Urine Urobilinogen Ur Leukocyte Esterase Urine RBC Urine WBC Ur Squamous Epith Cells Urine Bacteria Urine Mucus Urine Trichomonas Discharge Plan Triage Chief Complaint: GI Bleed ED Provider: Mary Jaramillo Dx/Rx/DC Orders Clinical Impression: Infection due to trichomonas, Acute Crohn's disease with rectal bleeding, External hemorrhoid Instructions: ED Crohn's Disease, ED Hemorrhoids, ED Lower GI Bleeding (Stable), ED TRICHOMONAS VAGINITIS Prescriptions: New prednisone 20 mg tablet 80 mg PO DAILY Qty: 28 RF: 0 metronidazole 500 mg tablet 500 mg PO BID 7 Days Qty: 14 RF: 0 ciprofloxacin HCl [Cipro] 500 mg tablet 500 mg PO Q12H Qty: 14 RF: 0 vancomycin [Vancocin] 125 mg capsule 125 mg PO Q6H 14 Days Qty: 56 RF: 0 No Action dicyclomine 20 mg tablet 20 mg PO TID Qty: 90 RF: 2 prednisone 20 mg tablet 60 mg PO DAILY Qty: 90 RF: 1 [facility] Ref[facility]: Friend,DO Usman [STAFF PHYSICIAN] - 1-2 Days if not improving [facility],Leana Suresh [Primary Care Provider] - Disposition Disposition: Home, Self Care
[2021-04-14 19:45] LABS: Bacteria 0 SEEN /hpf (None Seen)
[2021-04-14] MEDS: 0.9% Normal Saline 1,000 ML 1000 ML IV (19:46)
[2021-04-14] MEDS: Ondansetron 4 MG/2 ML Vial IV (19:46)
[2021-04-14] MEDS: Morphine 4 MG/ML Syringe IV (19:46)
[2021-04-14 19:58] LABS: Color, Urine Yellow (Yellow); Glucose, Dipstick Normal (Normal); Ketone-Dipstick 5 mg/dl (Negative); Leukocyte Esterase-Dipstick 25 /ul (Negative); Nitrite-Dipstick Negative (Negative); Occult Blood-Urine 10 /ul (Negative); Protein-Dipstick 15 mg/dl (Negative); Specific Gravity, Urine 1.015 (1.002-1.030); Urine Bilirubin Dipstick Negative (Negative); Urine Clarity Cloudy (Clear); Urine Urobilinogen 1 mg/dl (Normal); Urine pH 6.5 (5.0 - 8.0)
[2021-04-14 20:07] LABS: ALB/GLOB Ratio 0.7 RATIO (0.9-2.4); AST(SGOT) 14 U/L (15-37); Alanine Aminotransfer ALT/SGPT 19 U/L (13-56); Albumin, Serum 2.8 g/dL (3.2-5.0); Alkaline Phosphatase 112 U/L (45-117); Anion Gap 5 (5-15); BUN 13 mg/dL (7-18); BUN/Creat Ratio 25.3 RATIO (10-20); Calcium,Total 8.2 mg/dL (8.5-10.1); Chloride 109 mmol/L (98-107); Creatinine, Serum 0.51 mg/dL (0.55-1.02); EST Glomerular Filtration Rate 143 mL/min (>60); Est Glom Filt Rate - Afr Amer 173 mL/min (>60); Estimated Creatinine Clearance 131.69 ml/min; Glucose 134 mg/dL (74-106); Lipase 156 U/L (73-393); Potassium 4.1 mmol/L (3.5-5.1); Protein, Total 6.8 g/dL (6.4-8.2); Sodium Level 140 mmol/L (136-145)
[2021-04-14 20:22] LABS: Absolute Lymphocyte Count 1.47 X10^3/uL (0.83-4.51); Absolute Neutrophil Count 5.4 X10^3/uL (2.0-7.7); Basophil# 0.01 X10^3/uL; Basophil% 0.1 % (0-1); Hematocrit 34.8 % (37-47); Lymphocyte # 1.47 X10^3/ul (0.83-4.51); Lymphocyte % 19.9 % (19-41); Mean Corp Hgb Conc 31.6 g/dL (32-36); Mean Corpuscular Volume 85.5 fL (81-99); Mean Platelet Vol. 10.5 fl (6.2-12.0); Monocyte# 0.46 X10^3/uL; Monocyte% 6.2 % (0-10); NRBC Flagged by Analyzer 0 % (0-5); Neutrophil # 5.41 X10^3/uL (2.7-7.7); Neutrophil % 73.1 % (47-70); POSITIVE MORPHOLOGY YES; Platelet Count 272 K/mm3 (150-450); RBC Distribution Width SD 47.7 fl (35.1-43.9); Red Blood Count 4.07 M/mm3 (4.2-5.4); White Blood Count 7.4 K/mm3 (4.4-11.0)
[2021-04-14 20:41] LABS: Lactic Acid 1.1 mmol/L (0.4-1.9)
[2021-04-14 20:41] LABS: Mucous, Urine 1+ /hpf (<or=2+)
[2021-04-14 20:42] LABS: White Blood Cells 0-5 SEEN /hpf (0-5)
[2021-04-14 20:43] LABS: Red Blood Cells-Urine 0-5 SEEN /hpf (0-5); Squamous Epithelial Cells - UA 5-10 SEEN /hpf (5-10)
[2021-04-14 20:45] LABS: Trichomonas 0-5 SEEN /hpf (None Seen)
[2021-04-14 21:00] VITALS: BP 99/66; PULSE 65; RESP 16; O2SAT 98
[2021-04-14 21:18] LABS: Differential Indicated SCAN CRITERIA MET
[2021-04-14 21:19] LABS: Differential Comment SCANNED
[2021-04-14] MEDS: MethylPREDNISolone 125 MG/2 ML Vial 80 MG IV (22:35)
[2021-04-14] MEDS: Dicyclomine 10 MG Capsule 20 MG PO (22:37)
[2021-04-14] MEDS: metroNIDAZOLE 500 MG Tablet PO (22:37)
[2021-04-14 22:39] LABS: Erythrocyte Sedimentation Rate 22 mm/hr (0-30)
[2021-04-14 23:01] VITALS: BP 99/66; PULSE 78; RESP 16; O2SAT 99
== END 2021-04-14 23:02 | disposition home or self-care (01) ==
PROVIDERS: Emergency Provider Emergency Medicine
DX: K50.911 Crohn's disease, unspecified, with rectal bleeding (principal); A59.9 Trichomoniasis, unspecified; K64.4 Residual hemorrhoidal skin tags; F32.A Depression, unspecified; M19.90 Unspecified osteoarthritis, unspecified site; F17.210 Nicotine dependence, cigarettes, uncomplicated; Z79.52 Long term (current) use of systemic steroids; Z86.14 Personal history of Methicillin resistant Staphylococcus aureus infection
CPT/HCPCS: 80053; 81001; 83605; 83690; 85025; 85652; 86140; 96361; 96374; 96375; 99285; J7030; A4216; J2405

== ENCOUNTER → 2021-04-30 16:36 | Outpatient (CLI) | payer MEDICAID, SELFPAY ==
[2021-05-01 08:42] LABS: Rubella IgG Reactive (Nonreactive)
[2021-05-03 00:06] LABS: HEPATITIS B SURFACE AG Negative (Negative); Hepatitis A IgM Antibody Negative (Negative); Hepatitis B Core AB IgM Negative (Negative)
[2021-05-03 20:30] LABS: B. pertussis IgG 2.84 index (0.00-0.94); Hep C Antibodies >11.0 s/co ratio (0.0-0.9); Hepatitis B Core Ab Total Negative (Negative); Mumps Antibody, IgM < 0.80 AU (0.00-0.79); V-Zoster IgG (Immunity) 269 index (Immune >165)
== END ==
PROVIDERS: Referring Provider Internal Medicine Gastroenterology; Visit Provider Internal Medicine Gastroenterology
DX: K50.90 Crohn's disease, unspecified, without complications (principal)
CPT/HCPCS: 36415; 80074; 86704; 86735; 86762; 86787

== ENCOUNTER → 2021-05-09 12:22 | Outpatient (CLI) | payer MEDICAID, SELFPAY ==
[2021-05-09 13:02] LABS: Erythrocyte Sedimentation Rate 20 mm/hr (0-30)
[2021-05-09 13:38] LABS: CRP 4.07 mg/L (0.0-3.0); LDH 168 U/L (84-246)
[2021-05-09 15:19] LABS: Hepatitis C Antibody Preliminary Reactive (Nonreactive)
[2021-05-10 14:08] LABS: Anti-Centromere B Ab <0.2 AI (0.0-0.9); Anti-Chromatin <0.2 AI (0.0-0.9); Anti-Jo <0.2 AI (0.0-0.9); Anti-Scleroderma-70 AB <0.2 AI (0.0-0.9); Anti-ribosomal P Antibodies <0.2 AI (0.0-0.9); RNP Ab <0.2 AI (0.0-0.9); SJOGREN'S Anti-SS-A test < 0.2 AI (0.0-0.9); SJOGREN'S Anti-SS-B test < 0.2 AI (0.0-0.9); Smith Ab <0.2 AI (0.0-0.9); Smith/RNP Ab <0.2 AI (0.0-0.9)
[2021-05-10 22:45] LABS: Anti-Mitochondrial AB <20.0 Units (0.0-20.0); Anti-dsDNA Ab <1 IU/mL (0-9)
[2021-05-14 13:07] LABS: Angiotensin Convert Enzyme 22 U/L (14-82); Ceruloplasmin 24.9 mg/dL (19.0-39.0); Cytoplasmic Ab (C-ANCA) <1:20 titer (Neg:<1:20); HCV Quant. RNA PCR 1230000 IU/mL (.); QNTFERON TB Mitogen Value > 10.00 IU/mL (.); QNTFERON TB Nil Value 0.02 IU/mL (.); QNTFERON TB1+ Ag Value 0.03 IU/mL (.); QNTFERON TB2+ Ag Value 0.02 IU/mL (.)
[2021-05-14 15:56] LABS: AFP, Tumor Marker 4.5 ng/mL (0.0-8.3); Anti-Smooth Muscle ABS 6 Units (0-19); Copper, Serum or Plasma 100 ug/dL (80-158); Haptoglobin 179 mg/dL (33-278); Perinuclear Ab (P-ANCA) <1:20 titer (Neg:<1:20); QNTIFERON TB Positive Criteria Negative (Negative)
[2021-05-14 15:59] LABS: Hepatitis C Genotype 2b
== END ==
PROVIDERS: Visit Provider Internal Medicine Gastroenterology
DX: R76.8 Other specified abnormal immunological findings in serum (principal)
CPT/HCPCS: 82105; 82164; 82390; 82525; 83010; 83516; 83615; 85652; 86038; 86140; 86225; 86235; 86256; 86480; 86803; 87521; 87522; 87902

== ENCOUNTER 2021-05-16 08:31 | Outpatient (CLI) | payer MEDICAID, SELFPAY ==
--- NOTE | 2021-05-16 08:33 | US_ITS ---
STUDY: ABDOMINAL ULTRASOUND - RIGHT UPPER QUADRANT REASON FOR VISIT: Female, 35 years old hepatitic cc -- Liver, hepatitis C TECHNIQUE: Ultrasound evaluation of the right upper quadrant was performed with real-time and static king-scale imaging. TECHNICAL QUALITY: Adequate. COMPARISON: Comparison is made with prior CT scan abdomen and pelvis dated 02/13/2021. FINDINGS: Liver: The liver measures 16 cm. There is normal echogenicity of the liver. The bile ducts are within normal limits. There is hepatic color flow. The direction of portal flow is hepatopetal. There is no demonstrated mass lesion. Gallbladder: Normal distended gallbladder. The gallbladder wall measures 2 mm. There is a negative sonographic Elkins''s sign. There is no pericholecystic fluid. There are no gallstones. Common Bile Duct (C.B.D.): The common bile duct measures 4 mm. Pancreas: Normal size of the head, body and tail of the pancreas. There is normal echogenicity of the pancreas. There is no demonstrated pancreatic mass or cyst. Right Kidney: Normal size of the right kidney. The right kidney measures 10.5 cm x 4.9 cm x 4 cm. Normal renal cortex. The right cortex measures 1.5 cm. There is no demonstrated renal mass or cyst. There is no right hydronephrosis. US/Abdomen Limited IMPRESSION: Normal right upper quadrant ultrasound examination. Electronically Signed: Marco Weaver MD at 9:19 EST , Service support ,
== END 2021-05-16 23:59 | disposition short-term general hospital (02) ==
LOC: US 08:33
PROVIDERS: Referring Provider Internal Medicine Gastroenterology; Visit Provider Internal Medicine Gastroenterology
DX: R76.8 Other specified abnormal immunological findings in serum (principal)
CPT/HCPCS: 76705

== ENCOUNTER 2021-07-11 14:58 | Outpatient (CLI) | payer MEDICAID, SELFPAY ==
[2021-07-11 15:54] LABS: Absolute Lymphocyte Count 1.11 X10^3/uL (0.83-4.51); Absolute Neutrophil Count 7.5 X10^3/uL (2.0-7.7); Basophil# 0.02 X10^3/uL; Basophil% 0.2 % (0-1); Hematocrit 37.1 % (37-47); Hemoglobin 12.1 g/dL (12.0-15.0); Lymphocyte # 1.11 X10^3/ul (0.83-4.51); Lymphocyte % 12.5 % (19-41); Mean Corp Hgb Conc 32.6 g/dL (32-36); Mean Corpuscular Volume 85.9 fL (81-99); Mean Platelet Vol. 10.1 fl (6.2-12.0); Monocyte# 0.13 X10^3/uL; Monocyte% 1.5 % (0-10); NRBC Flagged by Analyzer 0 % (0-5); Neutrophil # 7.54 X10^3/uL (2.7-7.7); Neutrophil % 84.7 % (47-70); Platelet Count 305 K/mm3 (150-450); RBC Distribution Width CV 14.5 % (11.6-14.6); RBC Distribution Width SD 46.2 fl (35.1-43.9); Red Blood Count 4.32 M/mm3 (4.2-5.4); White Blood Count 8.9 K/mm3 (4.4-11.0)
[2021-07-11 16:34] LABS: ALB/GLOB Ratio 0.8 RATIO (0.9-2.4); AST(SGOT) 13 U/L (15-37); Alanine Aminotransfer ALT/SGPT 20 U/L (13-56); Albumin, Serum 3.1 g/dL (3.2-5.0); Alkaline Phosphatase 80 U/L (45-117); Anion Gap 4 (5-15); BUN 9 mg/dL (7-18); BUN/Creat Ratio 11.1 RATIO (10-20); CRP 2.96 mg/L (0.0-3.0); Calcium,Total 8.5 mg/dL (8.5-10.1); Chloride 106 mmol/L (98-107); Creatinine, Serum 0.81 mg/dL (0.55-1.02); EST Glomerular Filtration Rate 84 mL/min (>60); Est Glom Filt Rate - Afr Amer 102 mL/min (>60); Globulin 3.7 g/dL (2.2-4.2); Glucose 120 mg/dL (74-106); Potassium 4.2 mmol/L (3.5-5.1); Protein, Total 6.8 g/dL (6.4-8.2); Sodium Level 137 mmol/L (136-145)
[2021-07-11 16:40] LABS: Hemoglobin A1c 5.4 % (3.8-5.6)
[2021-07-11 17:39] LABS: Erythrocyte Sedimentation Rate 8 mm/hr (0-30)
[2021-07-13 19:07] LABS: HCV Quant. RNA PCR HCV Not Detected IU/mL (.)
== END 2021-07-11 23:59 | disposition home or self-care (01) ==
LOC: LAB 15:00
PROVIDERS: Visit Provider Nurse Practitioner Adult Health
DX: B19.20 Unspecified viral hepatitis C without hepatic coma (principal)
CPT/HCPCS: 36415; 80053; 83036; 85025; 85652; 86140; 87522

== ENCOUNTER 2021-07-16 16:10 | Outpatient (CLI) | payer MEDICAID, SELFPAY ==
[2021-07-19 22:09] LABS: Giardia Lamblia, Stool EIA Negative (Negative)
[2021-07-19 22:13] LABS: Calprotectin, Stool 52 ug/g (0-120)
== END 2021-07-16 23:59 | disposition home or self-care (01) ==
PROVIDERS: Referring Provider Nurse Practitioner Adult Health; Visit Provider Nurse Practitioner Adult Health
DX: K50.90 Crohn's disease, unspecified, without complications (principal)
CPT/HCPCS: 83630; 83993; 87177; 87209; 87329; 87506

== ENCOUNTER 2021-08-16 08:15 | Outpatient (CLI) | payer MEDICAID, SELFPAY ==
[2021-08-16 08:30] VITALS: BP 111/66; PULSE 74; RESP 16; TEMP 36.4; O2SAT 98; BMI 26.4
[2021-08-16] MEDS: 0.9% NaCl Peripheral Flush Adult/Peds IV ×2 (08:45→09:14)
[2021-08-16 09:19] VITALS: BP 98/60; PULSE 68; RESP 16; TEMP 36.4; O2SAT 97
== END 2021-08-16 23:59 | disposition home or self-care (01) ==
LOC: MEDOUTP 08:15
PROVIDERS: Referring Provider Nurse Practitioner Adult Health; Visit Provider Nurse Practitioner Adult Health
DX: K50.90 Crohn's disease, unspecified, without complications (principal)
CPT/HCPCS: 96365; 96413; J7050; A4216; Q5103

== ENCOUNTER 2021-08-17 11:49 | Emergency (ER) | payer MEDICAID, SELFPAY ==
[2021-08-17 11:50] VITALS: BP 109/78; PULSE 79; RESP 17; TEMP 36.9; O2SAT 97; BMI 27.3
--- NOTE | 2021-08-17 12:01 | EDS_ITS ---
HPI History of Present Illness Chief Complaint: Weakness Narrative Narrative: Patient with past medical history of Crohn disease, patient of Dr. Pina, presents with abdominal cramping, swelling of her feet, and generalized weakness. She states she takes prednisone 60 mg daily and has done so for a long time with her Crohn disease. They recently started her on sofosbuvir-velpatasvir, and she received her first infusion yesterday, which is supposed to be every 2 weeks. They state that they are trying to wean her off her prednisone. She is waiting on a refill of her prescription for her dicyclomine. She presents with generalized weakness, achiness, and reported swelling of her feet. She denies any fevers or chills. No nausea or vomiting. No diarrhea. She is having abdominal cramping consistent with her Crohn's. She states she does not feel well but was able to drive herself here. [facility] Medical History Arthritis Back pain Complete edentulism, class III Cystic fibrosis Depression Drug abuse Easy bruising Excessive bleeding History of steroid therapy Low iron MRSA (methicillin resistant staph aureus) culture positive Open wound Pilonidal cyst without mention of abscess Smoker Substance abuse Home Medications dicyclomine 20 mg tablet 40 mg PO TID #180 tab 05/31/21 [Rx Last Taken Unknown] prednisone 20 mg tablet 60 mg PO DAILY #90 tab 07/22/21 [Rx Last Taken Unknown] sofosbuvir-velpatasvir 1 tab PO DAILY 08/16/21 [History Last Taken Unknown] dicyclomine 40 mg PO TID PRN #90 tab 08/17/21 [Rx Last Taken Unknown] Allergy/AdvReac Type Severity Reaction Status Date / Time No Known Allergies Allergy Verified 08/16/21 08:27 Surgical History History of appendectomy History of colonoscopy History of partial hysterectomy Social History Smoking Status: Current every day smoker tobacco type: cigarettes substance use type: does not use ROS ROS ED ROS Narrative Constitutional: No fever, no chills. Generalized weakness. HEENT: No sore throat. No neck pain. No loss of vision. No rhinorrhea. Cardiovascular: No chest pain. No palpitations. Reported bilateral pedal edema. Respiratory: No cough, no shortness of breath. Abdominal: Positive diffuse abdominal cramping/abdominal pain. No nausea. No vomiting. No diarrhea. Genitourinary: No dysuria. No hematuria. Musculoskeletal: No myalgias. Bilateral foot pain and swelling. Neurologic: No headaches. No dizziness. No lightheadedness. Skin: No rash. No change in color. Psychiatric: No depression. No anxiety. EXAM Physical Exam Narrative Exam Narrative: Afebrile. Vital signs noted. HEENT: Normocephalic. Atraumatic. PERRL, EOMI. Neck soft and supple. No point tenderness or step off. Cardiovascular: Regular rate and rhythm. No murmurs, rubs, or gallops appreciated. Respiratory: No tachypnea. Lungs clear to auscultation bilaterally. Gastrointestinal: Abdomen soft, nontender, with normoactive bowel sounds. No rebound or guarding. Neurological: Awake. Alert. Nonfocal, nonlateralizing. Skin: No rash. Normal color. No pallor. Musculoskeletal: No appreciable pedal edema. Palpable dorsalis pedis pulses bilaterally. Full range of motion extremities. Const Vital Signs: 08/17/21 11:50 08/17/21 12:01 Temperature 98.4 F Temperature Source Temporal Pulse Rate 79 Respiratory Rate 17 Respiratory Effort Normal Non-Labored Respiratory Pattern Normal Blood Pressure 109/78 Blood Pressure Mean 88 Pulse Ox 97 Oxygen Delivery Method Room Air MDM MDM MDM Narrative Medical decision making narrative: I will obtain a CBC and CMP to check her electrolytes. She will be careful with fluid overload and she was administered normal saline at 125 mL/h. She was also administered dicyclomine 20 mg intramuscularly. Her CBC shows an elevated white count of 14.1, but she is on 60 mg of prednisone daily. Hemoglobin normal at 12.7. Hematocrit 40.2. Electrolyte panel is grossly unremarkable except for chloride elevated at 108, normal creatinine of 0.69 with a BUN of 11. LFT shows an AST of 13 with an ALT of 20 and a normal alk phos. I do not feel that any imaging or further laboratory work is indicated. Upon repeat examination, she is resting comfortably in bed, using her cellular telephone. I was able to speak with her crossing watchman, Dr. Friend. She did recently finished hepatitis C treatment last week, and this extra infusion may have been harder on her. I do feel she can be discharged safely home with follow-up. He did asked that I refill her prescription for dicyclomine as she takes 40 mg 3 times a day. I wrote her prescription for 90 tablets / 2 weeks. She will follow up with Dr. Mcmillan on Thursday, 2 days from now. Return instructions were reviewed. Disposition is discharged home in stable condition. Lab Data Attestation: I reviewed the patient's lab results. Labs: Laboratory Results - last 24 hr 08/17/21 08/17/21 12:05 12:05 WBC 14.1 H RBC 4.61 Hgb 12.7 Hct 40.2 MCV 87.2 MCH 27.5 MCHC 31.6 L RDW Std Deviation 45.4 H RDW Coeff of Timothy 14.1 Plt Count 337 MPV 9.4 Immature Gran % (Auto) 1.000 H Neut % (Auto) 78.2 H Lymph % (Auto) 15.7 L Payette % (Auto) 4.3 Eos % (Auto) 0.6 Baso % (Auto) 0.2 Absolute Neuts (auto) 11.0 H Absolute Lymphs (auto) 2.21 Nucleated RBC % 0 Sodium 137 Potassium 4.0 Chloride 108 H Carbon Dioxide 26.0 Anion Gap 3 L BUN 11 Creatinine 0.69 Estim Creat Clear Calc 97.33 Est GFR (MDRD) Af Amer 124 Est GFR (MDRD) Non-Af 102 BUN/Creatinine Ratio 16.0 Glucose 107 H Calcium 8.3 L Total Bilirubin 0.30 AST 13 L ALT 20 Alkaline Phosphatase 85 Total Protein 6.6 Albumin 3.0 L Globulin 3.6 Albumin/Globulin Ratio 0.8 L Discharge Plan Triage Chief Complaint: Weakness ED Provider: Abundio Moy Dx/Rx/DC Orders Clinical Impression: Crohn's disease, Hepatitis C, Abdominal cramping, Weakness Instructions: ED Crohn's Disease, ED Weakness (Uncertain Cause) Prescriptions: New dicyclomine 20 mg tablet 40 mg PO TID PRN (Reason: abdominal discomfort) Qty: 90 RF: 0 No Action dicyclomine 20 mg tablet 40 mg PO TID Qty: 180 RF: 2 sofosbuvir-velpatasvir 400-100 mg Tablet 1 tab PO DAILY RF: 0 prednisone 20 mg tablet 60 mg PO DAILY Qty: 90 RF: 1 Primary Care Provider: [facility] Leana Finch Referrals: [facility] Leana Finch [Primary Care Provider] -
[2021-08-17] MEDS: Dicyclomine 20 MG/2 ML Vial IM (12:12)
[2021-08-17] MEDS: 0.9% Normal Saline 1,000 ML 125 ML IV (12:15)
[2021-08-17 12:24] LABS: Absolute Lymphocyte Count 2.21 X10^3/uL (0.83-4.51); Basophil# 0.03 X10^3/uL; Basophil% 0.2 % (0-1); Eosinophil# 0.09 X10^3/uL; Eosinophils% 0.6 % (0-5); Hematocrit 40.2 % (37-47); Hemoglobin 12.7 g/dL (12.0-15.0); Lymphocyte # 2.21 X10^3/ul (0.83-4.51); Lymphocyte % 15.7 % (19-41); Mean Corp Hgb Conc 31.6 g/dL (32-36); Mean Corpuscular Hgb 27.5 pg (27.0-32.0); Mean Corpuscular Volume 87.2 fL (81-99); Mean Platelet Vol. 9.4 fl (6.2-12.0); Monocyte# 0.61 X10^3/uL; Monocyte% 4.3 % (0-10); NRBC Flagged by Analyzer 0 % (0-5); Neutrophil # 10.99 X10^3/uL (2.7-7.7); Neutrophil % 78.2 % (47-70); Platelet Count 337 K/mm3 (150-450); RBC Distribution Width CV 14.1 % (11.6-14.6); RBC Distribution Width SD 45.4 fl (35.1-43.9); Red Blood Count 4.61 M/mm3 (4.2-5.4); White Blood Count 14.1 K/mm3 (4.4-11.0)
[2021-08-17 12:37] LABS: ALB/GLOB Ratio 0.8 RATIO (0.9-2.4); AST(SGOT) 13 U/L (15-37); Alanine Aminotransfer ALT/SGPT 20 U/L (13-56); Alkaline Phosphatase 85 U/L (45-117); Anion Gap 3 (5-15); BUN 11 mg/dL (7-18); Calcium,Total 8.3 mg/dL (8.5-10.1); Chloride 108 mmol/L (98-107); Creatinine, Serum 0.69 mg/dL (0.55-1.02); EST Glomerular Filtration Rate 102 mL/min (>60); Est Glom Filt Rate - Afr Amer 124 mL/min (>60); Estimated Creatinine Clearance 97.33 ml/min; Globulin 3.6 g/dL (2.2-4.2); Glucose 107 mg/dL (74-106); Protein, Total 6.6 g/dL (6.4-8.2); Sodium Level 137 mmol/L (136-145)
[2021-08-17 12:55] VITALS: BP 103/68; PULSE 65; RESP 14; O2SAT 97
== END 2021-08-17 13:04 | disposition home or self-care (01) ==
PROVIDERS: Emergency Provider Emergency Medicine; Visit Provider Emergency Medicine
DX: K50.90 Crohn's disease, unspecified, without complications (principal); F17.210 Nicotine dependence, cigarettes, uncomplicated; B19.20 Unspecified viral hepatitis C without hepatic coma; R53.1 Weakness; R19.00 Intra-abdominal and pelvic swelling, mass and lump, unspecified site
CPT/HCPCS: 80053; 85025; 96360; 96372; 99283

== ENCOUNTER → 2021-08-30 | Outpatient (CLI) | payer MEDICAID, SELFPAY ==
[2021-08-30 08:38] VITALS: BP 101/63; PULSE 67; RESP 16; TEMP 35.8; O2SAT 100; BMI 27.4
[2021-08-30] MEDS: 0.9% NaCl Peripheral Flush Adult/Peds IV ×2 (08:43→12:01)
== END | disposition home or self-care (01) ==
LOC: MEDOUTP 08:30
PROVIDERS: Referring Provider Nurse Practitioner Adult Health; Visit Provider Nurse Practitioner Adult Health
DX: K50.90 Crohn's disease, unspecified, without complications (principal)
CPT/HCPCS: 96413; J7050; A4216; Q5103

== ENCOUNTER → 2021-10-18 | Outpatient (CLI) | payer MEDICAID, SELFPAY ==
[2021-10-18 08:23] VITALS: BP 95/62; PULSE 82; RESP 14; TEMP 35.8; O2SAT 99; BMI 26.6
[2021-10-18 17:13] LABS: Absolute Neutrophil Count 3.1 X10^3/uL (2.0-7.7); Basophil# 0.02 X10^3/uL; Basophil% 0.3 % (0-1); Eosinophil# 0.14 X10^3/uL; Hematocrit 38.8 % (37-47); Hemoglobin 12.8 g/dL (12.0-15.0); Lymphocyte % 43.5 % (19-41); Mean Corpuscular Hgb 27.9 pg (27.0-32.0); Mean Corpuscular Volume 84.7 fL (81-99); Mean Platelet Vol. 11.6 fl (6.2-12.0); Monocyte# 0.79 X10^3/uL; Monocyte% 11.1 % (0-10); NRBC Flagged by Analyzer 0 % (0-5); Neutrophil # 3.05 X10^3/uL (2.7-7.7); Neutrophil % 42.7 % (47-70); Platelet Count 245 K/mm3 (150-450); RBC Distribution Width CV 13.3 % (11.6-14.6); RBC Distribution Width SD 41.4 fl (35.1-43.9); Red Blood Count 4.58 M/mm3 (4.2-5.4); White Blood Count 7.1 K/mm3 (4.4-11.0)
[2021-10-18 17:28] LABS: Erythrocyte Sedimentation Rate 12 mm/hr (0-30)
[2021-10-18 18:01] LABS: ALB/GLOB Ratio 0.9 RATIO (0.9-2.4); AST(SGOT) 17 U/L (15-37); Alanine Aminotransfer ALT/SGPT 17 U/L (13-56); Albumin, Serum 3.2 g/dL (3.2-5.0); Alkaline Phosphatase 76 U/L (45-117); Anion Gap 5 (5-15); BUN 8 mg/dL (7-18); BUN/Creat Ratio 16.5 RATIO (10-20); CRP 7.52 mg/L (0.0-3.0); Calcium,Total 8.7 mg/dL (8.5-10.1); Chloride 109 mmol/L (98-107); Creatinine, Serum 0.48 mg/dL (0.55-1.02); EST Glomerular Filtration Rate 153 mL/min (>60); Est Glom Filt Rate - Afr Amer 185 mL/min (>60); Estimated Creatinine Clearance 138.57 ml/min; Globulin 3.5 g/dL (2.2-4.2); Glucose 88 mg/dL (74-106); Potassium 3.9 mmol/L (3.5-5.1); Protein, Total 6.7 g/dL (6.4-8.2); Sodium Level 137 mmol/L (136-145)
== END | disposition home or self-care (01) ==
LOC: MEDOUTP 08:15 → LAB 15:48
PROVIDERS: Referring Provider Nurse Practitioner Adult Health; Visit Provider Nurse Practitioner Adult Health
DX: K50.90 Crohn's disease, unspecified, without complications (principal); B19.20 Unspecified viral hepatitis C without hepatic coma
CPT/HCPCS: 36415; 80053; 85025; 85652; 86140; 87522; 96413; 96415; J7050; A4216; Q5103

== ENCOUNTER → 2021-12-13 | Outpatient (CLI) | payer MEDICAID, SELFPAY ==
[2021-12-13] MEDS: DiphenhydrAMINE 25 MG Capsule PO (08:28)
[2021-12-13] MEDS: 0.9% NaCl Peripheral Flush Adult/Peds IV (08:29)
== END | disposition home or self-care (01) ==
LOC: MEDOUTP 07:55
PROVIDERS: Referring Provider Nurse Practitioner Adult Health; Visit Provider Nurse Practitioner Adult Health
DX: K50.90 Crohn's disease, unspecified, without complications (principal)
CPT/HCPCS: 36415; 80053; 82728; 85025; 85652; 86140; 96413; J7050; A4216; Q5103

== ENCOUNTER → 2021-12-13 | Outpatient (CLI) | payer MEDICAID, SELFPAY ==
[2021-12-13 08:25] LABS: Erythrocyte Sedimentation Rate 17 mm/hr (0-30)
[2021-12-13 08:27] LABS: Absolute Lymphocyte Count 2.16 X10^3/uL (0.83-4.51); Absolute Neutrophil Count 3.3 X10^3/uL (2.0-7.7); Basophil# 0.02 X10^3/uL; Basophil% 0.3 % (0-1); Eosinophil# 0.03 X10^3/uL; Eosinophils% 0.5 % (0-5); Hemoglobin 11.5 g/dL (12.0-15.0); Lymphocyte # 2.16 X10^3/ul (0.83-4.51); Lymphocyte % 34.2 % (19-41); Mean Corp Hgb Conc 31.9 g/dL (32-36); Mean Corpuscular Hgb 26.8 pg (27.0-32.0); Mean Corpuscular Volume 83.9 fL (81-99); Mean Platelet Vol. 11.1 fl (6.2-12.0); Monocyte# 0.76 X10^3/uL; NRBC Flagged by Analyzer 0 % (0-5); Neutrophil # 3.32 X10^3/uL (2.7-7.7); Neutrophil % 52.7 % (47-70); Platelet Count 290 K/mm3 (150-450); RBC Distribution Width CV 12.8 % (11.6-14.6); RBC Distribution Width SD 38.7 fl (35.1-43.9); Red Blood Count 4.29 M/mm3 (4.2-5.4); White Blood Count 6.3 K/mm3 (4.4-11.0)
[2021-12-13 08:53] LABS: ALB/GLOB Ratio 0.8 RATIO (0.9-2.4); AST(SGOT) 14 U/L (15-37); Alanine Aminotransfer ALT/SGPT 19 U/L (13-56); Albumin, Serum 3.2 g/dL (3.2-5.0); Alkaline Phosphatase 94 U/L (45-117); Anion Gap 7 (5-15); BUN 11 mg/dL (7-18); BUN/Creat Ratio 17.1 RATIO (10-20); CRP 9.83 mg/L (0.0-3.0); Calcium,Total 8.3 mg/dL (8.5-10.1); Chloride 107 mmol/L (98-107); Creatinine, Serum 0.64 mg/dL (0.55-1.02); EST Glomerular Filtration Rate 110 mL/min (>60); Est Glom Filt Rate - Afr Amer 133 mL/min (>60); Ferritin 3 ng/mL (8-252); Globulin 3.9 g/dL (2.2-4.2); Glucose 104 mg/dL (74-106); Potassium 3.7 mmol/L (3.5-5.1); Protein, Total 7.1 g/dL (6.4-8.2); Sodium Level 138 mmol/L (136-145)
== END | disposition home or self-care (01) ==
LOC: LAB 07:39
PROVIDERS: Visit Provider Internal Medicine Gastroenterology
DX: K50.90 Crohn's disease, unspecified, without complications (principal)
CPT/HCPCS: 36415; 85025; 82728; 86140; 80053; 85652

== ENCOUNTER → 2022-02-07 | Outpatient (CLI) | payer MEDICAID, SELFPAY ==
[2022-02-07 08:50] VITALS: BP 102/59; PULSE 68; RESP 16; TEMP 36.9; O2SAT 98; BMI 24.8
[2022-02-07] MEDS: 0.9% NaCl Peripheral Flush Adult/Peds IV (09:28)
[2022-02-07] MEDS: DiphenhydrAMINE 25 MG Capsule PO (09:28)
[2022-02-07] MEDS: Acetaminophen 325 MG Tablet 650 MG PO (09:28)
== END | disposition home or self-care (01) ==
PROVIDERS: Referring Provider Nurse Practitioner Adult Health; Visit Provider Nurse Practitioner Adult Health
DX: K50.90 Crohn's disease, unspecified, without complications (principal)
CPT/HCPCS: 96413; J7050; A4216; Q5103

== ENCOUNTER 2022-02-27 12:13 | Emergency (ER) | payer MEDICAID, SELFPAY ==
[2022-02-27 12:14] VITALS: BP 102/69; PULSE 80; RESP 15; TEMP 36.5; O2SAT 97; BMI 24.2
--- NOTE | 2022-02-27 12:28 | EX.ED.DYSGE1 ---
HPI History of Present Illness Chief Complaint: Abscess Detail of Chief Complaint: Right groin Informant: patient Onset/Context/Timing Onset: Weeks Context: Gradual Onset Timing: Continuous Current Severity: Mild Maximum Severity: Mild Narrative Narrative: 36-year-old female history of cystic fibrosis but states she is never any real problems with it and substance-abuse. There is a right groin abscess for about 2 weeks. She has had abscesses before but never in this area. States it just started draining today. Denies any fever chills or other complaints. Prior similar symptoms: Yes Recent Illness/Hospitalization: No PFSH PFSH Medical History Arthritis Back pain Complete edentulism, class III Cystic fibrosis Depression Drug abuse Easy bruising Excessive bleeding History of steroid therapy Low iron MRSA (methicillin resistant staph aureus) culture positive Open wound Pilonidal cyst without mention of abscess Smoker Substance abuse Home Medications infliximab-dyyb 100 mg intravenous solution (Inflectra) See Rx Instructions .Route .COMPLEX #1 ea 12/31/21 [Rx Last Taken Unknown] dicyclomine 20 mg tablet See Rx Instructions .Route .COMPLEX #180 tabs 02/14/22 [Rx Last Taken Unknown] cephalexin 500 mg capsule 500 mg PO Q6 #40 caps 02/27/22 [Rx Last Taken Unknown] sulfamethoxazole 800 mg-trimethoprim 160 mg tablet (Bactrim DS) 1 tab PO BID 10 days #20 tabs 02/27/22 [Rx Last Taken Unknown] Allergy/AdvReac Type Severity Reaction Status Date / Time No Known Allergies Allergy Verified 02/27/22 12:14 Surgical History History of appendectomy History of colonoscopy History of partial hysterectomy Social History Smoking Status: Current every day smoker tobacco type: cigarettes substance use type: does not use ROS ROS ED ROS Narrative Denies recent illness. Review of Systems ROS Unobtainable: Denies due to encephalopathy Constitutional Constitutional ED: Denies chills or fever(s) Eyes Eyes: Denies blurry vision ENT ENT ED: Denies ear pain Cardiovascular Cardiovascular: Denies chest pain Respiratory/Chest Respiratory/Chest: Denies cough Gastrointestinal Gastrointestinal: Denies abdominal pain Genitourinary Genitourinary ED: Denies dysuria or hematuria Musculoskeletal Musculoskeletal: Denies arthralgias Integumentary Reports abscess; Denies Abrasions Neurologic Neurologic: Denies headache(s) Psychiatric Psychiatric: Denies anxiety Endocrine Endocrinology: Denies cold intolerance Hematologic/Lymphatic Hematologic/Lymphatic: Reports none Allergic/Immunologic Allergic/Immunologic ED: Denies mouth swelling or tongue swelling EXAM Physical Exam Narrative Exam Narrative: Well-appearing 36-year-old female. Vital signs stable afebrile. H EENT exam unremarkable. Neck nontender. Lungs are clear. Heart regular rhythm no murmur rate about 80. Abdomen soft nontender. Right groin there is an abscess that is approximately 1 to 2 inches in length. About a quarter to half an inch in width. There are pustules. It is tender mildly raised and red. No surrounding cellulitis. This will need drained. Moving all 4 extremities. Nontender no edema. Neurologically she is awake and alert. Const Vital Signs: 02/27/22 12:14 Temperature 97.7 F L Temperature Source Temporal Pulse Rate 80 Respiratory Rate 15 Blood Pressure 102/69 Blood Pressure Mean 80 Pulse Ox 97 Oxygen Delivery Method Room Air Positive well nourished and well developed; Negative for obese, cachectic, contractures or unkempt General Appearance ED: well developed and NAD; Negative for unkempt, cachectic, contractures, cyanotic or diaphoretic Nutritional Appearance: Negative for cachectic or obese HEENT Reports moist mucous membranes; Denies dry mucous membranes Negative for trauma or tenderness Mouth ED: No dry mucous membranes Mouth: No dry mucous membranes Eyes PERRL and EOMs intact bilaterally General Eye ED: Negative for pale conjunctiva or scleral icterus Neck no lymphadenopathy, supple and no JVD General: Negative for tenderness Lymph Lymphatic: Negative for other Chest Wall inspection of chest normal and palpation of chest normal Resp normal respiratory effort and clear to auscultation bilaterally Effort and Inspection: Negative for retractions Auscultation: Negative for rales, rhonchi or wheezes Cardio regular rate, regular rhythm, S1 normal heart sound, S2 normal heart sound and no murmurs Palpation: Negative for palpable S3 Rate: Negative for bradycardia Rhythm: Negative for abnormal rhythm GI normal to inspection, nondistended, normoactive bowel sounds, non-tender, non-distended and no masses Inspection: Negative for abdominal distention Auscultation: Negative for normoactive bowel sounds Palpation: soft; Negative for tender Back/Spine no CVA tenderness Extremity normal to inspection Extremity Narrative: Right groin abscess. General Extremety ED: Yes tenderness; Negative for edema General Extremity: Negative for edema Neuro oriented x3 Sensorium / Orientation: alert; Negative for orientation impaired, lethargic or stuporous Motor Exam: strength 5/5 throughout Psych mental status grossly normal Appearance: Negative for unkempt Attitude: No agitated Mood & Affect: Negative for depressed, anxious or tearful Skin no rashes or lesions noted and no wounds General Skin Exam: Negative for elasticity normal Lesions: No lesion noted Rashes: No rashes noted Trauma: Negative for abrasion Wounds: Negative for wounds noted MDM MDM MDM Narrative Medical decision making narrative: 36-year-old female with right groin abscess suspender 2 weeks. Let will be applied. Then local anesthetic with lidocaine injections. Incision and drainage. Discharged on antibiotics. Procedures Other Procedures Procedure(s): Incision and drainage right groin abscess. Let applied. Local anesthetized with lidocaine. Cleaned with Shur-Clens washed with saline. Made about a 1 inch incision. Was able to express a very small amount of blood and pus. Patient tolerated well. It was not a deep cavity did not need to be packed. Dressing will be applied. She will be discharged home. Prescriptions for Bactrim and Keflex. Discharge Plan Triage Chief Complaint: Abscess ED Provider: Kendall Dennis Dx/Rx/DC Orders Clinical Impression: Abscess Instructions: Abscess Drainage Prescriptions: New cephalexin 500 mg capsule 500 mg PO Q6 Qty: 40 0RF sulfamethoxazole-trimethoprim [Bactrim DS] 800-160 mg tablet 1 tab PO BID 10 Days Qty: 20 0RF No Action Inflectra 100 mg recon soln See Rx Instructions .ROUTE .COMPLEX Qty: 1 0RF Rx Instructions: 5mg/kg Q8W following induction dicyclomine 20 mg tablet See Rx Instructions .ROUTE .COMPLEX Qty: 180 1RF Dose Instruction: TAKE 2 TABLETS BY MOUTH THREE TIMES DAILY Rx Instructions: TAKE 2 TABLETS BY MOUTH THREE TIMES DAILY Primary Care Provider: [facility] - Activity Restrictions/Additional Instructions: Warm soaks or compresses 2-3 times per day. Motrin and Tylenol for pain. Both antibiotics as prescribed daily the Keflex 4 times a day and the Bactrim twice a day for 10 days each. If looking worse return or see your primary care provider. Should progressively improve. Disposition Disposition: Home, Self Care
[2022-02-27] MEDS: Lidocaine/Epi/Tetracaine 50 ML 1 APPLIC TOPICAL (12:32)
[2022-02-27] MEDS: Lidocaine 1% (20 ml mdv) 20 ML Vial 6 ML INFILT (13:02)
== END 2022-02-27 13:20 | disposition home or self-care (01) ==
PROVIDERS: Emergency Provider Emergency Medicine; PCP Internal Medicine; Visit Provider Emergency Medicine
DX: L02.91 Cutaneous abscess, unspecified (principal); F17.210 Nicotine dependence, cigarettes, uncomplicated; Z86.14 Personal history of Methicillin resistant Staphylococcus aureus infection; Z14.1 Cystic fibrosis carrier
CPT/HCPCS: 10060; 99281; 99282

== ENCOUNTER 2022-04-04 08:21 | Outpatient (CLI) | payer MEDICAID, SELFPAY ==
[2022-04-04 08:28] VITALS: BP 94/57; PULSE 61; RESP 16; TEMP 36.3; O2SAT 99; BMI 24.5
[2022-04-04] MEDS: 0.9% NaCl Peripheral Flush Adult/Peds IV ×2 (08:33→09:18)
[2022-04-04] MEDS: 0.9% NaCl IVPB Med Flush (250 mL) 15 ML IV (09:18)
[2022-04-04] MEDS: Acetaminophen 325 MG Tablet 650 MG PO (09:27)
[2022-04-04] MEDS: DiphenhydrAMINE 25 MG Capsule PO (09:29)
== END 2022-04-04 23:59 | disposition home or self-care (01) ==
LOC: MEDOUTP 08:21
PROVIDERS: PCP Internal Medicine; Referring Provider Nurse Practitioner Adult Health; Visit Provider Nurse Practitioner Adult Health
DX: K50.90 Crohn's disease, unspecified, without complications (principal)
CPT/HCPCS: 96365; 96366; J7050; A4216; Q5103

== ENCOUNTER → 2022-04-10 | Outpatient (CLI) | payer MEDICAID, SELFPAY ==
[2022-04-10 15:00] LABS: Erythrocyte Sedimentation Rate 22 mm/hr (0-30)
[2022-04-10 15:03] LABS: Absolute Lymphocyte Count 3.29 X10^3/uL (0.83-4.51); Absolute Neutrophil Count 5.4 X10^3/uL (2.0-7.7); Basophil# 0.04 X10^3/uL; Basophil% 0.4 % (0-1); Eosinophil# 0.22 X10^3/uL; Eosinophils% 2.3 % (0-5); Hematocrit 36.7 % (37-47); Hemoglobin 11.6 g/dL (12.0-15.0); Lymphocyte # 3.29 X10^3/ul (0.83-4.51); Lymphocyte % 34.2 % (19-41); Mean Corp Hgb Conc 31.6 g/dL (32-36); Mean Corpuscular Hgb 26.3 pg (27.0-32.0); Mean Corpuscular Volume 83.2 fL (81-99); Mean Platelet Vol. 11.6 fl (6.2-12.0); Monocyte# 0.62 X10^3/uL; Monocyte% 6.5 % (0-10); NRBC Flagged by Analyzer 0 % (0-5); Neutrophil % 56.2 % (47-70); Platelet Count 319 K/mm3 (150-450); RBC Distribution Width CV 14.9 % (11.6-14.6); RBC Distribution Width SD 45.4 fl (35.1-43.9); Red Blood Count 4.41 M/mm3 (4.2-5.4); White Blood Count 9.6 K/mm3 (4.4-11.0)
[2022-04-10 15:29] LABS: ALB/GLOB Ratio 0.8 RATIO (0.9-2.4); AST(SGOT) 9 U/L (15-37); Alanine Aminotransfer ALT/SGPT 19 U/L (13-56); Albumin, Serum 3.2 g/dL (3.2-5.0); Alkaline Phosphatase 94 U/L (45-117); Anion Gap 6 (5-15); BUN 11 mg/dL (7-18); BUN/Creat Ratio 17.1 RATIO (10-20); CRP 5.55 mg/L (0.0-3.0); Calcium,Total 8.3 mg/dL (8.5-10.1); Chloride 109 mmol/L (98-107); Creatinine, Serum 0.64 mg/dL (0.55-1.02); EST Glomerular Filtration Rate 110 mL/min (>60); Est Glom Filt Rate - Afr Amer 133 mL/min (>60); Glucose 92 mg/dL (74-106); Potassium 3.9 mmol/L (3.5-5.1); Protein, Total 7.2 g/dL (6.4-8.2); Sodium Level 138 mmol/L (136-145)
[2022-04-12 18:08] LABS: HCV Quant. RNA PCR HCV Not Detected IU/mL (.)
[2022-04-14 20:44] LABS: Calprotectin, Stool 146 ug/g (0-120)
== END | disposition home or self-care (01) ==
LOC: LAB 13:38
PROVIDERS: PCP Internal Medicine; Visit Provider Nurse Practitioner Adult Health
DX: K50.90 Crohn's disease, unspecified, without complications (principal)
CPT/HCPCS: 36415; 80053; 83630; 83993; 85025; 85652; 86140; 87522

== ENCOUNTER → 2022-05-30 | Outpatient (CLI) | payer MEDICAID, SELFPAY ==
[2022-05-30 08:28] VITALS: BP 103/61; PULSE 63; RESP 16; TEMP 36.1; O2SAT 99; BMI 23.5
[2022-05-30] MEDS: 0.9% NaCl Peripheral Flush Adult/Peds IV (08:31)
[2022-05-30] MEDS: Dextrose 5% 250 ML 15 ML IV (08:34)
[2022-05-30 11:01] VITALS: BP 101/55; PULSE 58; RESP 16
== END | disposition home or self-care (01) ==
LOC: MEDOUTP 08:23
PROVIDERS: PCP Internal Medicine; Referring Provider Nurse Practitioner Adult Health; Visit Provider Nurse Practitioner Adult Health
DX: K50.90 Crohn's disease, unspecified, without complications (principal)
CPT/HCPCS: 96365; A4216; J2327

== ENCOUNTER 2022-06-12 06:12 | Day surgery (SDC) | payer MEDICAID, SELFPAY ==
[2022-06-12] VITALS (7 sets, daily range): BP systolic 82–98; BP diastolic 54–78; PULSE 47–59; RESP 16; TEMP 36.1–36.7; O2SAT 95–100; BMI 23.1
--- NOTE | 2022-06-12 | GASB_PTH ---
PATIENT: WESTLEY SELLERS LOC: EN U#:[id number] AGE/SX: 36/F ROOM: RE06/12/[address]: Dr. Usman Mcmillan DO : 1985 BED: DIS: 06/12/2022 SPEC #: [id number] RECD: 06/12/22 11:13 STATUS: EVAN COLEEN #: [id number] STEPHANIE: 06/12/22 00:[address]: Usman Mcmillan DEPT: SURGICAL PATHOLOGY RECD BY: Andrae Triplett ENTERED: 06/12/22 11:13 SP TYPE: Gastric Bx NILDA DR: Dr. Teri Crocker MD Tissues: A - Gastric mucous membrane B - Ileum, NOS C - Transverse colon Procedures: Surgery Specimen Level IV HEADER OPERATION: Colonoscopy (MAC) PRE-OP DIAGNOSIS: Crohn?s disease TISSUE SUBMITTED: A ? Ileocecal valve biopsy, B ? Terminal ileum biopsy, C ? Transverse colon MICROSCOPIC DIAGNOSIS A. Ileocecal valve, biopsy: Focal ulceration with associated acute and chronic inflammation and granulation. B. Terminal ileum, biopsy: Chronic active colitis pattern of injury with focal ulceration. No evidence of dysplasia. See comment. C. Transverse colon, biopsy: No significant pathologic change. No evidence of active colitis. AM:walter 06/13/2022 COMMENT B. There is focal ulceration and cryptitis present. Minimal glandular distortion is identified. No transmural lymphoid aggregate or granulomas are seen. Clinical correlation is suggested. MICROSCOPIC DESCRIPTION Slides are reviewed. GROSS DESCRIPTION A - Received in fixative is one container labeled with the patient's name and designated ileocecal valve biopsy. The specimen consists of two irregular fragments of light yi soft tissue that in aggregate measure 0.8 x 0.4 x 0.1 cm. The specimen is totally submitted in one cassette. B - Received in fixative is one container labeled with the patient's name and designated terminal ileum biopsy. The specimen consists of multiple irregular fragments of light yi soft tissue that in aggregate measure 1 x 0.4 x 0.1 cm. The specimen is totally submitted in one cassette. C - Received in fixative is one container labeled with the patient's name and designated transverse colon biopsy. The specimen consists of multiple irregular fragments of light yi soft tissue that in aggregate measure 0.6 x 0.3 x 0.1 cm. The specimen is totally submitted in one cassette. / SJ:rg 06/12/2022 TC:2 CPT: 27851 x3
--- NOTE | 2022-06-12 07:13 | PCM.HP.BLA ---
History and Physical Date of Admission: 06/12/22 36 F who presents to the office today for f/u Crohn's. Last office visit with us was in 10/2021. Her Crohn's symptoms have improved on Inflectra, however she feels drained, achy, fatigued for 3-4 days after each infusion. And also gets leg swelling and foot cramping during that time too. No improvement of infusion side effects with pre/post-treatment with IVF, acetaminophen, IV diphenhydramine. Last infusion was 04/04/22, gets infusion every 8 wks. Dicyclomine helps with abdominal cramps, still has some, still has to take high doses of dicyclomine. Bowels are better--starts semi-formed, then gets looser, 1-2 BMs per day. No blood in stool. Weight is stable. For Hepatitis C she completed 12-week course of Epclusa.? Hep C RNA PCR was negative in the middle of her treatment, and at the end of treatment.?Plan is to check hep C RNA PCR today and then annually. Crohn's disease -- She established with this office 03/05/21 for mgmt of Crohn's disease. She was diagnosed during inpatient stay in 2016. She started Inflectra (infliximab-dyyb) Spring 2021; treatment was delayed until she was started on therapy for hepatitis C. Colonoscopy was done on 03/19/2021. Her inflammatory markers and stool calprotectin normalized on prednisone. ROS Const Constitutional: Positive for fatigue ENT ENT: No difficulty swallowing Cardio Cardiology: Positive for leg pain with exertion Gastro GI: No abdominal pain, belching, bloating, change in bowel habits, change in stool character, coffee ground emesis, constipation, cramping, diarrhea, heartburn, difficulty swallowing, feeling full early, excessive flatus, incontinent of stools, Vomiting blood/hematemesis, Blood in stool, loose stools, Black,tarry stools, nausea/dyspepsia, pain with swallowing, vomiting or other Musc Musculoskeletal: Positive for joint pain, back pain, joint swelling, stiffness, sciatica, leg pain at night and leg pain with exertion Skin Skin: No yellowing of the eye or itchy eyes Psych Psychiatric: No anxiety and No depression Endo Endocrine: Positive for fatigue Aller/Imm Allergy/Immunologic: No itchy eyes Niall/Lymp Hematologic/Lymphatic: Positive for easy bruising; No easy bleeding Exam Const General: cooperative, healthy appearing and comfortable Nutritional Appearance: average body habitus Orientation: alert, awake and oriented x3 HENMT Head: normal to inspection Eyes Sclera: sclerae normal Resp Effort & Inspection: normal respiratory effort GI Inspection: normal to inspection Skin General: no jaundice Quality Reporting Tobacco Screening (CMS 138) Smoking Status: Current every day smoker Assessment and Plan Assessment and Plan (1) Crohn's disease: ?Status:?Acute ?Plan: Severe Crohn's in terminal ileum and colon. Update blood and stool inflammatory markers, update CBC and CMP, need liver labs prior to Skyrizi. Will rx Skyrizi to replace Inflectra (infliximab) since Inflectra causes adverse effects despite pretreatment; several days of aches, fatigue, leg swelling and cramping after each infusion. She still required dicyclomine for intestinal cramps. Update colonoscopy, f/u 2 wks after in office. (2) Hepatitis C: ?Status:?Acute ?Plan: Check HCV RNA quant to ensure still not present following treatment earlier this year, will then check annually. ? ? ? Orders: Orders Hepatitis C,RNA PCR Viral Load Today B19.20 - Unspecified viral hepatitis C without hepatic coma ? Comprehensive Metabolic Profil Today K50.90 - Crohn's disease, unspecified, without complications ? CRP Today K50.90 - Crohn's disease, unspecified, without complications ? Erythrocyte Sed Rate Today K50.90 - Crohn's disease, unspecified, without complications ? CBC W/Diff, Automated Today K50.90 - Crohn's disease, unspecified, without complications ? Calprotectin, Stool Today K50.90 - Crohn's disease, unspecified, without complications ? Stool Lactoferrin/WBC Today K50.90 - Crohn's disease, unspecified, without complications, K58.9 - Irritable bowel syndrome without diarrhea ? Medications: Refilled dicyclomine ?TAKE 2 TABLETS BY MOUTH THREE TIMES DAILY 180 tabs 5RF ? ? Discontinued cephalexin ?? Discontinued Reason:? Pt no longer taking 500 mg? PO Q6 40 caps 0RF ? ? sulfamethoxazole-trimethoprim 800-160 mg (Bactrim DS) ?? Discontinued Reason:? Pt no longer taking 1 TAB? PO BID 10 days 20 tabs 0RF ? ? I have examined the patient and the H&P has been reviewed. There are no clinical changes since date of exam.
--- NOTE | 2022-06-12 07:56 | OP.COLON_ITS ---
Patient Name: Sandra Napier Procedure Date: 06/12/2022 7:13 AM Date of : 1985 Age: 36 Procedure: Colonoscopy Indications: Crohn's disease of the small bowel and colon Providers: Usman Mcmillan DO Medicines: Monitored Anesthesia Care Patient Profile: This is a 36 year old female. Refer to note in patient chart for documentation of history and physical. Last Colonoscopy: 1 year ago. Complications: No immediate complications. Procedure: Pre-Anesthesia Assessment: - Prior to the procedure, a History and Physical was performed, and patient medications and allergies were reviewed. The risks and benefits of the procedure and the sedation options and risks were discussed with the patient. All questions were answered and informed consent was obtained. Patient identification and proposed procedure were verified by the physician. Mental Status Examination: alert and oriented. Airway Examination: normal oropharyngeal airway and neck mobility. Respiratory Examination: clear to auscultation. Prophylactic Antibiotics: The patient does not require prophylactic antibiotics. Prior Anticoagulants: The patient has taken no previous anticoagulant or antiplatelet agents. After reviewing the risks and benefits, the patient was deemed in satisfactory condition to undergo the procedure. The anesthesia plan was to use monitored anesthesia care (MAC). Immediately prior to administration of medications, the patient was re-assessed for adequacy to receive sedatives. The heart rate, respiratory rate, oxygen saturations, blood pressure, adequacy of pulmonary ventilation, and response to care were monitored throughout the procedure. The physical status of the patient was re-assessed after the procedure. After I obtained informed consent, the scope was passed under direct vision. Throughout the procedure, the patient's blood pressure, pulse, and oxygen saturations were monitored continuously. The Colonoscope was introduced through the anus and advanced to the terminal ileum. The colonoscopy was performed without difficulty. The patient tolerated the procedure well. The quality of the bowel preparation was adequate. Scope In: 7:31:22 AM Scope Withdrawal Time 0 hours 9 minutes 25 seconds Scope Out: 7:45:43 AM Total Procedure Duration Time 0 hours 14 minutes 21 seconds Findings: The perianal and digital rectal examinations were normal. The Simple Endoscopic Score for Crohn's Disease was determined based on the endoscopic appearance of the mucosa in the following segments: - Ileum: Findings include large ulcers 0.5-2 cm in size, greater than 30% ulcerated surfaces, less than 50% of surfaces affected and multiple narrowings that can be passed. Segment score: 8. - Right Colon: Findings include aphthous ulcers less than 0.5 cm in size, less than 10% ulcerated surfaces, no affected surfaces and a single narrowing that can be passed. Segment score: 3. - Transverse Colon: Findings include ulcers greater than 2 cm in size, greater than 30% ulcerated surfaces, 50-75% of surfaces affected and a single narrowing that can be passed. Segment score: 9. - Left Colon: Findings include no ulcers present, no ulcerated surfaces, no affected surfaces and no narrowings. Segment score: 0. - Rectum: Findings include no ulcers present, no ulcerated surfaces, no affected surfaces and no narrowings. Segment score: 0. - Total SES-CD aggregate score: 20. Biopsies were taken with a cold forceps for histology. Verification of patient identification for the specimen was done. Estimated blood loss was minimal. The terminal ileum contained a benign-appearing, intrinsic severe stenosis measuring 3 cm (in length) that was traversed after dilation. A TTS dilator was passed through the scope. Dilation with a 6-7-8 mm colonic balloon dilator was performed. The dilation site was examined and showed no change. Impression: - Simple Endoscopic Score for Crohn's Disease: 20, mucosal inflammatory changes secondary to Crohn's disease. Biopsied. - Stricture in the terminal ileum. Dilated. Recommendation: - Discharge patient to home. - Resume previous diet. - Continue present medications. - Await pathology results. - Repeat colonoscopy in 1 year for surveillance. Procedure Code(s): --- Professional --- 79781, Colonoscopy, flexible; with transendoscopic balloon dilation 69750, Colonoscopy, flexible; with biopsy, single or multiple CPT copyright 2017 [employer]. All rights reserved. The codes documented in this report are preliminary and upon residential supervisor review may be revised to meet current compliance requirements. Usman Mcmillan DO 06/12/2022 7:55:45 AM This report has been signed electronically. Number of Addenda: 0 Note Initiated On: 06/12/2022 7:13 AM
--- NOTE | 2022-06-12 07:57 | OP.CCLET_ITS ---
06/12/2022 Teri Crocker [address] [place] [address] Re : Colonoscopy procedure for Sandra Bealnneman Dear Dr. Crocker This procedure was performed on June. My impressions and recommendations are as follows: Impressions : - Simple Endoscopic Score for Crohn's Disease: 20, mucosal inflammatory changes secondary to Crohn's disease. Biopsied. - Stricture in the terminal ileum. Dilated. Recommendations : - Discharge patient to home. - Resume previous diet. - Continue present medications. - Await pathology results. - Repeat colonoscopy in 1 year for surveillance. My findings are described in the full procedure note, which is enclosed. If I can be of further assistance, please feel free to contact me at . Sincerely, Usman Friend, 06/12/2022 7:55:45 AM This report has been signed electronically.
== END 2022-06-12 08:46 | disposition home or self-care (01) ==
LOC: EN 06:14 → AC 06:15
PROVIDERS: PCP Internal Medicine; Referring Provider Internal Medicine Gastroenterology; Visit Provider Internal Medicine Gastroenterology
PROC: 0DJD8ZZ Inspection of Lower Intestinal Tract, Via Natural or Artificial Opening Endoscopic (ICD-10-PCS; CPT 45378; principal; 2022-06-12 07:10)
DX: K50.90 Crohn's disease, unspecified, without complications (principal); K56.699 Other intestinal obstruction unspecified as to partial versus complete obstruction; B19.20 Unspecified viral hepatitis C without hepatic coma; F17.200 Nicotine dependence, unspecified, uncomplicated; M79.89 Other specified soft tissue disorders; R53.83 Other fatigue
CPT/HCPCS: 45380; 45386; 88305; J7120; J2405

== ENCOUNTER → 2022-06-27 | Outpatient (CLI) | payer MEDICAID, SELFPAY ==
[2022-06-27 08:22] VITALS: BP 107/66; PULSE 69; RESP 16; TEMP 36.6; BMI 23.0
[2022-06-27] MEDS: 0.9% NaCl Peripheral Flush Adult/Peds IV (08:42)
[2022-06-27] MEDS: Dextrose 5% 250 ML 15 ML IV (08:43)
[2022-06-27 10:56] VITALS: BP 106/66; PULSE 70; RESP 16; TEMP 36.6; O2SAT 98
== END | disposition home or self-care (01) ==
LOC: MEDOUTP 08:09
PROVIDERS: PCP Internal Medicine; Referring Provider Nurse Practitioner Adult Health; Visit Provider Nurse Practitioner Adult Health
DX: K50.90 Crohn's disease, unspecified, without complications (principal)
CPT/HCPCS: 96372; A4216; J2327

== ENCOUNTER → 2022-08-22 | Outpatient (CLI) | payer MEDICAID, SELFPAY ==
[2022-08-22] MEDS: Dextrose 5% 250 ML 15 ML IV (08:26)
[2022-08-22] MEDS: 0.9% NaCl Peripheral Flush Adult/Peds IV (08:26)
[2022-08-22 08:28] VITALS: BP 97/61; PULSE 99; RESP 16; TEMP 36.8; O2SAT 98; BMI 23.0
[2022-08-22 10:10] VITALS: BP 102/62; PULSE 61; RESP 16; TEMP 36.8; O2SAT 99
== END | disposition home or self-care (01) ==
PROVIDERS: PCP Internal Medicine; Referring Provider Nurse Practitioner Adult Health; Visit Provider Nurse Practitioner Adult Health
DX: K50.90 Crohn's disease, unspecified, without complications (principal)
CPT/HCPCS: 96365; A4216; J2327

== ENCOUNTER → 2022-09-19 | Outpatient (CLI) | payer MEDICAID, SELFPAY ==
[2022-09-19 14:44] LABS: Absolute Lymphocyte Count 2.73 X10^3/uL (0.83-4.51); Absolute Neutrophil Count 3.1 X10^3/uL (2.0-7.7); Basophil# 0.02 X10^3/uL; Basophil% 0.3 % (0-1); Eosinophil# 0.16 X10^3/uL; Eosinophils% 2.4 % (0-5); Hematocrit 36.1 % (37-47); Hemoglobin 11.9 g/dL (12.0-15.0); Lymphocyte # 2.73 X10^3/ul (0.83-4.51); Lymphocyte % 41.4 % (19-41); Mean Corpuscular Hgb 27.9 pg (27.0-32.0); Mean Corpuscular Volume 84.5 fL (81-99); Mean Platelet Vol. 10.8 fl (6.2-12.0); Monocyte% 9.1 % (0-10); NRBC Flagged by Analyzer 0 % (0-5); Neutrophil # 3.08 X10^3/uL (2.7-7.7); Neutrophil % 46.6 % (47-70); Platelet Count 244 K/mm3 (150-450); RBC Distribution Width CV 13.5 % (11.6-14.6); RBC Distribution Width SD 41.8 fl (35.1-43.9); Red Blood Count 4.27 M/mm3 (4.2-5.4); White Blood Count 6.6 K/mm3 (4.4-11.0)
[2022-09-19 14:47] LABS: Erythrocyte Sedimentation Rate 11 mm/hr (0-30)
[2022-09-19 15:18] LABS: ALB/GLOB Ratio 0.8 RATIO (0.9-2.4); AST(SGOT) 14 U/L (15-37); Alanine Aminotransfer ALT/SGPT 19 U/L (13-56); Albumin, Serum 3.2 g/dL (3.2-5.0); Alkaline Phosphatase 93 U/L (45-117); Anion Gap 6 (5-15); BUN 8 mg/dL (7-18); BUN/Creat Ratio 12.7 RATIO (10-20); CRP 7.45 mg/L (0.0-3.0); Calcium,Total 8.2 mg/dL (8.5-10.1); Chloride 114 mmol/L (98-107); Creatinine, Serum 0.63 mg/dL (0.55-1.02); EST Glomerular Filtration Rate 112 mL/min (>60); Est Glom Filt Rate - Afr Amer 136 mL/min (>60); Ferritin 18 ng/mL (8-252); Globulin 3.8 g/dL (2.2-4.2); Glucose 122 mg/dL (74-106); Iron 23 ug/dL (50-170); Iron Binding Capacity,Total 247 ug/dL (250-450); Lipase 69 U/L (13-75); PERCENT IRON SATURATION 9.3 % (15.0-55.0); Potassium 3.3 mmol/L (3.5-5.1); Sodium Level 142 mmol/L (136-145)
[2022-09-22 13:07] LABS: Anti-Centromere B Ab <0.2 AI (0.0-0.9); Anti-Chromatin <0.2 AI (0.0-0.9); Anti-Jo <0.2 AI (0.0-0.9); Anti-Scleroderma-70 AB <0.2 AI (0.0-0.9); Anti-dsDNA Ab 2 IU/mL (0-9); RNP Ab <0.2 AI (0.0-0.9); SJOGREN'S Anti-SS-A test < 0.2 AI (0.0-0.9); SJOGREN'S Anti-SS-B test < 0.2 AI (0.0-0.9); Smith Ab <0.2 AI (0.0-0.9)
[2022-09-22 15:08] LABS: Cytoplasmic Ab (C-ANCA) <1:20 titer (Neg:<1:20); Endomysial Antibody IgA Negative (Negative); Immunoglobulin A 598 mg/dL (87-352); Perinuclear Ab (P-ANCA) <1:20 titer (Neg:<1:20); t-Transglutaminase IgA 3 U/mL (0-3)
== END | disposition home or self-care (01) ==
LOC: LAB 14:03
PROVIDERS: PCP Internal Medicine; Referring Provider Nurse Practitioner Adult Health; Visit Provider Nurse Practitioner Adult Health
DX: K50.90 Crohn's disease, unspecified, without complications (principal); D64.9 Anemia, unspecified; Z87.898 Personal history of other specified conditions; R53.83 Other fatigue
CPT/HCPCS: 36415; 80053; 82728; 82784; 83516; 83540; 83550; 83690; 85025; 85652; 86140; 86225; 86235; 86255; 86256

== ENCOUNTER → 2022-09-25 | Outpatient (CLI) | payer MEDICAID, SELFPAY ==
[2022-09-29 15:08] LABS: Pancreatic Elastase, Fecal 461 (>200)
[2022-10-04 00:07] LABS: Calprotectin, Stool 357 ug/g (0-120)
== END | disposition home or self-care (01) ==
LOC: LABSPEC 10:31
PROVIDERS: PCP Internal Medicine; Referring Provider Nurse Practitioner Adult Health; Visit Provider Nurse Practitioner Adult Health
DX: K50.90 Crohn's disease, unspecified, without complications (principal); D64.9 Anemia, unspecified; Z87.898 Personal history of other specified conditions
CPT/HCPCS: 82653; 83630; 83993

== ENCOUNTER 2023-04-17 11:57 | Emergency (ER) | payer SELFPAY ==
[2023-04-17 11:58] VITALS: BP 110/68; PULSE 64; RESP 16; TEMP 37.2; O2SAT 100; BMI 21.7
--- NOTE | 2023-04-17 12:36 | CT_ITS ---
STUDY: CT ABDOMEN AND PELVIS WITH CONTRAST REASON FOR EXAM: Female, 37 years old. Lower abd pain, R side pain, Crohn''s RADIATION DOSAGE (If Supplied By Facility): CTDIvol = ( 9.35 ) mGy, DLP = ( 273.28 ) mGycm TECHNIQUE: Transaxial images were obtained from the dome of the diaphragm to the symphysis pubis without oral contrast. IV 100mL Isovue-300 was administered. Sagittal and coronal images were reconstructed. Individualized dose optimization techniques were used for this CT. COMPARISON: Comparison is made with prior examination February 13, 2021. FINDINGS: The visualized lung bases are unremarkable. The visualized portions of the heart are within normal limits. Normal liver. Artifact is seen in the region of the gallbladder lumen. Questionable small gallstone. Normal spleen. Normal pancreas. Normal bilateral adrenal glands. Normal right kidney. Normal left kidney. Normal visualized stomach. Inflammatory changes are seen within the terminal ileum and distal ileum with increased markings in the surrounding peritoneal fat. A small amount of fluid is seen in the pelvis. This isn''t consistent with the patient''s history of Crohn''s disease. Normal colon. The appendix is visualized and appears normal. Normal abdominal aorta. Normal inferior vena cava. Normal retroperitoneum. Normal urinary bladder. There is a 2.7 cm cyst in the left ovary. There is seen within the endometrium and vagina. Fistula should be ruled out.ESSURE device is seen in the fallopian tubes. Normal abdominal wall. Normal osseous structures. CT/Abdomen/Pelvis W IV Cont ONLY IMPRESSION: Inflammatory changes are seen in the terminal and distal ileum with increased markings in the peritoneal fat and small lymph nodes. This is in keeping with the Crohn''s disease. 2.7 cm cyst in the left ovary. Electronically Signed: Marco Weaver MD at 14:20 EST ,
--- NOTE | 2023-04-17 12:42 | EDS_ITS ---
HPI HPI - GI History of Present Illness Chief Complaint: GI Bleed Informant: patient Abdominal Pain/Flank Pain Onset: Days (3-4) Context: Gradual Onset Timing: Continuous Quality: Aching Location: - (Lower abdomen and right side) Current Severity: Severe Maximum Severity: Severe Worsened by: Nothing Relieved by: Nothing Nausea/Vomiting/Emesis GI Symptom: Positive for Nausea; Negative for Vomiting Diarrhea/Melena/Hematochezia GI Symptom: Positive for Diarrhea and Hematochezia; Negative for Melena Associated Symptoms Associated Symptoms: Negative for Dysuria, Frequency, Hematuria or Urgency Narrative Narrative: 37-year-old female feels like she is having a flareup of her Crohn's disease over the last 3 to 4 days, starting with increased pain, and for the last day or 2 bleeding with every stool. No melena. No fevers or chills. Nausea but no vomiting. She was well-controlled when she was getting monthly Skyrizi injections, but she states she lost her medical insurance and so she was not able to get these injections anymore, her last 1 was 1-2 months ago, and she believes that may be why she is flaring up now. She has never had any surgery for Crohn's in the past. [facility] Medical History Abscess Arthritis Back pain Cystic fibrosis Depression Easy bruising History of Crohn's disease History of edema History of intravenous drug abuse History of stress test Loss of consciousness Low iron MRSA (methicillin resistant staph aureus) culture positive Pilonidal cyst without mention of abscess Smoker Substance abuse Vapes nicotine containing substance Wears dentures Wears glasses Home Medications risankizumab-rzaa 60 mg/mL intravenous solution (Skyrizi) 60 mg IV .Q4W 06/09/22 [History Last Taken Unknown] dicyclomine 20 mg tablet 60 mg (3 x 20 mg) PO TID #710 tabs 12/24/22 [Rx Last Taken Unknown] ondansetron 4 mg disintegrating tablet 8 mg (2 x 4 mg) PO Q8H PRN PRN Nausea #20 tabs 04/17/23 [Rx Last Taken Unknown] oxycodone-acetaminophen 5 mg-325 mg tablet 1 tab PO Q4H PRN Pain 3 days #15 TABLETS 04/17/23 [Rx Last Taken Unknown] prednisone 10 mg tablet 10 mg PO UD #33 tabs 04/17/23 [Rx Last Taken Unknown] trazodone 50 mg tablet 50 mg PO .ONCE A DAY 04/17/23 [History Last Taken Unknown] Allergy/AdvReac Type Severity Reaction Status Date / Time No Known Allergies Allergy Verified 04/17/23 11:57 Surgical History (Reviewed 09/19/22 @ 12:50 by Teodora Long BIOINFORMATICS ANALYST, BIOINFORMATICS ANALYST-C) History of appendectomy History of colonoscopy History of partial hysterectomy Social History Smoking Status: Current every day smoker tobacco type: e-cigarettes substance use type: does not use ROS ROS ED Constitutional Constitutional ED: Denies chills or fever(s) Eyes Eyes: Denies change in vision or diplopia ENT ENT ED: Denies rhinorrhea or sore throat Cardiovascular Cardiovascular: Denies chest pain or palpitations Respiratory/Chest Respiratory/Chest: Denies cough or dyspnea Gastrointestinal Gastrointestinal: Reports abdominal pain, diarrhea, hematochezia and nausea; Denies melena or vomiting Genitourinary Genitourinary ED: Denies dysuria or hematuria Musculoskeletal Musculoskeletal: Denies back pain or neck pain Integumentary Denies abscess or rash Neurologic Neurologic: Denies headache(s), paresthesias or weakness Psychiatric Psychiatric: Denies anxiety or suicidal thoughts EXAM Physical Exam Const Vital Signs: 04/17/23 11:58 04/17/23 14:40 Temperature 99 F Temperature Source Temporal Pulse Rate 64 65 Respiratory Rate 16 16 Blood Pressure 110/68 97/66 Blood Pressure Mean 82 76 Pulse Ox 100 100 Oxygen Delivery Method Room Air Room Air Positive well nourished and well developed General Appearance ED: well developed and NAD HEENT Reports moist mucous membranes normocephalic and atraumatic Eyes PERRL and EOMs intact bilaterally Neck full ROM and supple Resp normal respiratory effort and clear to auscultation bilaterally Cardio regular rate, regular rhythm and no murmurs GI non-distended GI Narrative: Moderate tenderness throughout lower abdomen as well as right mid abdomen, no guarding or rebound. Increased pain when she laughs. Auscultation: hyperactive bowel sounds Palpation: soft Back/Spine no CVA tenderness General Back: other FROM Extremity normal to inspection General Extremety ED: Negative for edema, pulses abnormal or tenderness General Extremity: Negative for edema or pulses abnormal Neuro oriented x3, CN's II-XII intact bilaterally and no sensory deficits noted Sensorium / Orientation: awake and alert Motor Exam: strength 5/5 throughout Psych mental status grossly normal and thought process normal Skin no rashes or lesions noted and no wounds MDM MDM MDM Narrative Medical decision making narrative: Patient having symptoms of a Crohn's exacerbation, labs and CT were obtained while we treated her symptoms and gave her IV fluids in order to rule out a Crohn's intra-abdominal complications such as bowel obstruction, abscess, fistula. CT was negative for these, I reviewed the images and the report and I agree with it. Consistent with a Crohn's exacerbation. She is doing much better after treatment. Initially given morphine but the IV infiltrated and they had to put a new one and, so she was given additional pain medication and nausea medication she is comfortable treating as an outpatient, so we gave her a dose of Solu-Medrol here as well as a prescription for prednisone, pain medication, nausea medication, if she has significant malabsorption, weight loss, vomiting, or other worsening, she is encouraged to revisit the ER otherwise to follow-up with her doctor. She is comfortable with that plan. Lab Data Attestation: I reviewed the patient's lab results. Labs: Laboratory Results - last 24 hr 04/17/23 12:50 WBC 7.0 RBC 4.29 Hgb 12.5 Hct 36.8 L MCV 85.8 MCH 29.1 MCHC 34.0 RDW Std Deviation 41.8 RDW Coeff of Timothy 13.4 Plt Count 231 MPV 11.0 Immature Gran % (Auto) 0.300 Neut % (Auto) 46.4 L Lymph % (Auto) 45.7 H [place] % (Auto) 6.5 Eos % (Auto) 0.7 Baso % (Auto) 0.4 Absolute Neuts (auto) 3.2 Absolute Lymphs (auto) 3.18 Nucleated RBC % 0 Sodium 140 Potassium 3.5 Chloride 109 H Carbon Dioxide 26.0 Anion Gap 5 BUN 8 Creatinine 0.61 Estim Creat Clear Calc 107.98 Est GFR (MDRD) Af Amer 142 Est GFR (MDRD) Non-Af 117 BUN/Creatinine Ratio 13.2 Glucose 78 Calcium 8.4 L Total Bilirubin 0.70 AST 10 L ALT 16 Alkaline Phosphatase 84 Total Protein 7.3 Albumin 3.6 Globulin 3.7 Albumin/Globulin Ratio 1.0 Radiography Diagnostic Testing: Clinical Impression(s) from Imaging Studies Abdomen/Pelvis CT 04/17/23 12:36 IMPRESSION: Inflammatory changes are seen in the terminal and distal ileum with increased markings in the peritoneal fat and small lymph nodes. This is in keeping with the Crohn''s disease. 2.7 cm cyst in the left ovary. Electronically Signed: Marco Weaver MD at 14:20 EST , Discharge Plan Triage Chief Complaint: GI Bleed ED Provider: Jatin Castro Dx/Rx/DC Orders Clinical Impression: Exacerbation of Crohn's disease of small intestine Instructions: Crohns Disease Dc Prescriptions: New prednisone 10 mg tablet 10 mg PO UD Qty: 33 0RF Rx Instructions: Take 4 tablets daily for 3 days, then 3 daily for 3 days, then 2 daily for 3 days, then 1 a day for 3 days then 1 QOD for 3 doses. oxycodone-acetaminophen [oxycodone-acetaminophen] 5-325 mg tablet 1 tab PO Q4H PRN (Reason: Pain) 3 Days Qty: 15 0RF ondansetron [ondansetron] 4 mg tablet,disintegrating 8 mg PO Q8H PRN PRN (Reason: Nausea) Qty: 20 0RF No Action Skyrizi 60 mg/mL Solution 60 mg IV .Q4W trazodone 50 mg tablet 50 mg PO .ONCE A DAY Patient Comments: TAKE 1 TABLET BY MOUTH EVERY DAY AT BEDTIME dicyclomine 20 mg tablet 60 mg PO TID Qty: 710 3RF Primary Care Provider: Teri Crocker Referrals: Teri Crocker MD [Primary Care Provider] - As soon as possible (And/or your purchasing assistant) Disposition Disposition: Home, Self Care
[2023-04-17 13:10] LABS: Absolute Lymphocyte Count 3.18 X10^3/uL (0.83-4.51); Absolute Neutrophil Count 3.2 X10^3/uL (2.0-7.7); Basophil# 0.03 X10^3/uL; Basophil% 0.4 % (0-1); Eosinophil# 0.05 X10^3/uL; Eosinophils% 0.7 % (0-5); Hematocrit 36.8 % (37-47); Hemoglobin 12.5 g/dL (12.0-15.0); Lymphocyte # 3.18 X10^3/ul (0.83-4.51); Lymphocyte % 45.7 % (19-41); Mean Corpuscular Hgb 29.1 pg (27.0-32.0); Mean Corpuscular Volume 85.8 fL (81-99); Monocyte# 0.45 X10^3/uL; Monocyte% 6.5 % (0-10); NRBC Flagged by Analyzer 0 % (0-5); Neutrophil # 3.23 X10^3/uL (2.7-7.7); Neutrophil % 46.4 % (47-70); Platelet Count 231 K/mm3 (150-450); RBC Distribution Width CV 13.4 % (11.6-14.6); RBC Distribution Width SD 41.8 fl (35.1-43.9); Red Blood Count 4.29 M/mm3 (4.2-5.4)
[2023-04-17] MEDS: 0.9% Normal Saline (1000mL) 1,000 ML 1000 ML IV (13:12)
[2023-04-17] MEDS: Ondansetron 4 MG/2 ML Vial IV (13:12)
[2023-04-17] MEDS: Morphine 4 MG/ML Syringe IV (13:13)
[2023-04-17 13:26] LABS: AST(SGOT) 10 U/L (15-37); Alanine Aminotransfer ALT/SGPT 16 U/L (13-56); Albumin, Serum 3.6 g/dL (3.2-5.0); Alkaline Phosphatase 84 U/L (45-117); Anion Gap 5 (5-15); BUN 8 mg/dL (7-18); BUN/Creat Ratio 13.2 RATIO (10-20); Calcium,Total 8.4 mg/dL (8.5-10.1); Chloride 109 mmol/L (98-107); Creatinine, Serum 0.61 mg/dL (0.55-1.02); EST Glomerular Filtration Rate 117 mL/min (>60); Est Glom Filt Rate - Afr Amer 142 mL/min (>60); Estimated Creatinine Clearance 107.98 ml/min; Globulin 3.7 g/dL (2.2-4.2); Glucose 78 mg/dL (74-106); Potassium 3.5 mmol/L (3.5-5.1); Protein, Total 7.3 g/dL (6.4-8.2); Sodium Level 140 mmol/L (136-145)
[2023-04-17 14:40] VITALS: BP 97/66; PULSE 65; RESP 16; O2SAT 100
[2023-04-17] MEDS: HYDROmorphone 1 MG/ML Syringe IV (15:13)
[2023-04-17] MEDS: MethylPREDNISolone 125 MG/2 ML Vial IV (15:13)
== END 2023-04-17 16:03 | disposition home or self-care (01) ==
PROVIDERS: Emergency Provider Emergency Medicine; PCP Internal Medicine; Visit Provider Emergency Medicine
DX: K50.90 Crohn's disease, unspecified, without complications (principal); F17.210 Nicotine dependence, cigarettes, uncomplicated; Z90.710 Acquired absence of both cervix and uterus
CPT/HCPCS: 74177; 80053; 85025; 96361; 96374; 96375; 99284; Q9967; A4216; J2405

== ENCOUNTER 2023-09-25 11:49 | Outpatient (CLI) | payer OTHER, SELFPAY ==
[2023-09-25 11:58] VITALS: BP 107/66; PULSE 64; RESP 16; TEMP 36.6; O2SAT 99; BMI 20.5
[2023-09-25] MEDS: Risankizumab-rzza 600 MG in Dextrose 5%-Water (100mL Bag) 100 ML 110 MG IV (12:31)
[2023-09-25 13:59] VITALS: BP 93/53; PULSE 67; RESP 16; TEMP 36.3; O2SAT 99
== END 2023-09-25 23:59 | disposition home or self-care (01) ==
LOC: MEDOUTP 11:51
PROVIDERS: PCP Internal Medicine; Referring Provider Internal Medicine Gastroenterology; Visit Provider Internal Medicine Gastroenterology
DX: K50.90 Crohn's disease, unspecified, without complications (principal)
CPT/HCPCS: 96365; A4216; J2327

== ENCOUNTER 2023-10-23 10:11 | Outpatient (CLI) | payer OTHER, SELFPAY ==
[2023-10-23 10:45] VITALS: BP 115/67; PULSE 44; RESP 16; TEMP 36.1; O2SAT 100; BMI 19.7
[2023-10-23] MEDS: 0.9% NaCl IVPB Med Flush (250 mL) 15 ML IV (10:51)
[2023-10-23] MEDS: Risankizumab-rzza 600 MG in Dextrose 5%-Water (100mL Bag) 100 ML 110 MG IV (10:51)
[2023-10-23] MEDS: 0.9% NaCl Peripheral Flush Adult/Peds IV (10:51)
[2023-10-23 12:29] VITALS: BP 91/55; PULSE 48; RESP 16; TEMP 36.3; O2SAT 98
== END 2023-10-23 23:59 | disposition home or self-care (01) ==
LOC: MEDOUTP 10:11
PROVIDERS: PCP Internal Medicine; Referring Provider Internal Medicine Gastroenterology; Visit Provider Internal Medicine Gastroenterology
DX: K50.90 Crohn's disease, unspecified, without complications (principal)
CPT/HCPCS: 96365; 96366; J7050; A4216; J2327

== ENCOUNTER 2023-11-20 09:30 | Outpatient (CLI) | payer OTHER, SELFPAY ==
[2023-11-20 09:37] VITALS: BP 105/60; PULSE 42; RESP 16; TEMP 36.2; O2SAT 100; BMI 21.2
[2023-11-20] MEDS: 0.9% NaCl Peripheral Flush Adult/Peds IV (10:10)
[2023-11-20] MEDS: [UNRECOGNIZED DRUG - OTHER] IV (10:11)
[2023-11-20] MEDS: NORMAL SALINE 0.9% IV (10:11)
[2023-11-20 11:42] VITALS: BP 95/55; PULSE 57
== END 2023-11-20 23:59 | disposition home or self-care (01) ==
LOC: MEDOUTP 09:32
PROVIDERS: PCP Internal Medicine; Referring Provider Internal Medicine Gastroenterology; Visit Provider Internal Medicine Gastroenterology
DX: K50.90 Crohn's disease, unspecified, without complications (principal)
CPT/HCPCS: 96365; A4216; J2327

== ENCOUNTER 2023-12-26 11:11 | Observation (INO) | payer OTHER, SELFPAY ==
[2023-12-26] VITALS (7 sets, daily range): BP systolic 82–104; BP diastolic 53–72; PULSE 52–100; RESP 16–22; TEMP 36–36.7; O2SAT 97–100; BMI 18.6
--- NOTE | 2023-12-26 11:43 | CT_ITS ---
EXAM: CT ABDOMEN AND PELVIS WITH INTRAVENOUS CONTRAST CLINICAL INDICATION: lower abd pain, contipation, hx Crohn''s TECHNIQUE: Helically acquired images were obtained of the abdomen and pelvis with intravenous contrast. This CT exam was performed using one or more of the following dose reduction techniques: automated exposure control, adjustment of the mA and/or kV according to patient size, and/or use of iterative reconstruction technique. CONTRAST: IV 60mL Isovue-370 COMPARISON: 04/17/2023 FINDINGS: LOWER THORAX: No significant abnormality. Lung bases are clear. No cardiomegaly. No significant pericardial effusion. ABDOMEN: LIVER: No significant abnormality. Homogeneous. No focal mass. GALLBLADDER AND BILE DUCTS: No significant abnormality. No calcified gallstones. No gallbladder distention or wall edema. No intra- or extrahepatic biliary ductal dilation. PANCREAS: No significant abnormality. No focal cystic or solid mass. SPLEEN: No significant abnormality. Normal size without focal cystic or solid mass. ADRENALS: No significant abnormality. No nodules. KIDNEYS AND URETERS: No significant abnormality. Normal renal size and position. No hydronephrosis. STOMACH AND BOWEL: Mild wall thickening of the distal small bowel perhaps secondary to inflammatory enteritis. No bowel obstruction. Moderate diffuse colonic stool retention. PELVIS: APPENDIX: No evidence of acute appendicitis. BLADDER: No significant abnormality. REPRODUCTIVE: Crenulated appearance peripherally enhancing cystic lesion within the right adnexa measuring 2.6 cm may be a hemorrhagic cyst. Status post hysterectomy. Tubal occlusion devices are present bilaterally. ABDOMEN and PELVIS: INTRAPERITONEAL SPACE: Small volume free fluid may be physiologic. No free air. BONES/JOINTS: No significant abnormality. No suspicious lytic or blastic abnormality. SOFT TISSUES: No significant abnormality. No discrete abdominal or pelvic wall hernia. VASCULATURE: No significant abnormality. Abdominal aorta is non-dilated. LYMPH NODES: No significant abnormality. No enlarged lymph nodes. CT/Abdomen/Pelvis W IV Cont ONLY IMPRESSION: 1. Crenulated appearance peripherally enhancing cystic lesion within the right adnexa measuring 2.6 cm may be a hemorrhagic cyst. Small volume free fluid may be physiologic. 2. Mild wall thickening of the distal small bowel perhaps secondary to inflammatory enteritis. No bowel obstruction. 3. Moderate diffuse colonic stool retention. Electronically Signed: Handy Cisse DO at 12:23 EDT ,
[2023-12-26] MEDS: Ondansetron 4 MG/2 ML Vial IV (11:57)
[2023-12-26] MEDS: Morphine 4 MG/ML Syringe IV (11:58)
--- NOTE | 2023-12-26 12:02 | EDS_ITS ---
HPI HPI - GI History of Present Illness Chief Complaint: Abd Pain Informant: patient Narrative Narrative: Patient is a 38-year-old female with history of hepatitis C, cystic fibrosis and Crohn's disease (follows with Dr. Mcmillan and on Miller) presenting with worsening lower abdominal pain. IV states she woke up and tried to have a bowel movement. When she stood up she passed gas. Then had significant pain in her pelvic region. She describes as cramping. She notes has been constipated not had a bowel movement the past 2 days. Has had nausea associated with this. States this does feel like a Crohn's flare and the nature of the pain but notes her Crohn's flares do not typically act like this. Denies any fever or chills. Denies any urinary symptoms. Has had a history of prior partial hysterectomy, and appendectomy. Is not concerned for . No other complaints or concerns at this time. [facility] Medical History Abscess Arthritis Back pain Cystic fibrosis Depression Easy bruising History of Crohn's disease History of edema History of intravenous drug abuse History of stress test Loss of consciousness Low iron MRSA (methicillin resistant staph aureus) culture positive Pilonidal cyst without mention of abscess Smoker Substance abuse Vapes nicotine containing substance Wears dentures Wears glasses Home Medications ?Medication ?Instructions ?Recorded ?Last Taken ?Type trazodone 50 mg tablet 50 mg PO .ONCE A DAY 04/17/23 Unknown History prednisone 20 mg tablet 60 mg (3 x 20 mg) PO DAILY #90 tabs 09/03/23 Unknown Rx risankizumab-rzaa 60 mg/mL 600 mg .Route 09/10/23 Unknown History intravenous solution (Skyrizi) dicyclomine 20 mg tablet 60 mg (3 x 20 mg) PO TID #710 tabs 11/11/23 Unknown Rx risankizumab-rzaa 180 mg/1.2 mL 180 mg (1.2 mL) subcut Q8W #1.2 mL 12/16/23 Unknown Rx (150 mg/mL) subcut wearable injector (Skyrizi) Allergy/AdvReac Type Severity Reaction Status Date / Time No Known Allergies Allergy Verified 12/26/23 11:13 Surgical History History of appendectomy History of colonoscopy History of partial hysterectomy Social History Smoking Status: Current every day smoker tobacco type: e-cigarettes substance use type: does not use EXAM Physical Exam Const Vital Signs: 12/26/23 11:12 Temperature 96.8 F L Temperature Source Temporal Pulse Rate 74 Respiratory Rate 22 H Blood Pressure 102/72 Blood Pressure Mean 82 Pulse Ox 99 Oxygen Delivery Method Room Air Discharge Plan Triage Chief Complaint: Abd Pain ED Provider: Mary Jaramillo Dx/Rx/DC Orders Prescriptions: No Action trazodone 50 mg tablet 50 mg PO .ONCE A DAY Patient Comments: TAKE 1 TABLET BY MOUTH EVERY DAY AT BEDTIME prednisone 20 mg tablet 60 mg PO DAILY Qty: 90 3RF Skyrizi 60 mg/mL solution 600 mg .Route Patient Comments: Order faxed to infusion department 09/09 Rx Instructions: Infuse 600mg at 0,4, and 8 weeks. dicyclomine 20 mg tablet 60 mg PO TID Qty: 710 3RF Skyrizi 180 mg/1.2 mL (150 mg/mL) wearable injector 180 mg subcut Q8W Qty: 1.2 5RF Primary Care Provider: Teri Crocker Referrals: Teri Crocker MD [Primary Care Provider] - Print Language: Czech
--- NOTE | 2023-12-26 12:02 | ED.VIS.GI ---
HPI HPI - GI History of Present Illness Chief Complaint: Abd Pain Informant: patient Narrative Narrative: Patient is a 38-year-old female with history of hepatitis C, cystic fibrosis and Crohn's disease (follows with Dr. Mcmillan and on Miller) presenting with worsening lower abdominal pain. IV states she woke up and tried to have a bowel movement. When she stood up she passed gas. Then had significant pain in her pelvic region. She describes as cramping. She notes has been constipated not had a bowel movement the past 2 days. Has had nausea associated with this. States this does feel like a Crohn's flare and the nature of the pain but notes her Crohn's flares do not typically act like this. Denies any fever or chills. Denies any urinary symptoms. Has had a history of prior partial hysterectomy, and appendectomy. Is not concerned for . No other complaints or concerns at this time. [facility] Medical History Abscess Arthritis Back pain Cystic fibrosis Depression Easy bruising History of Crohn's disease History of edema History of intravenous drug abuse History of stress test Loss of consciousness Low iron MRSA (methicillin resistant staph aureus) culture positive Pilonidal cyst without mention of abscess Smoker Substance abuse Vapes nicotine containing substance Wears dentures Wears glasses Home Medications ?Medication ?Instructions ?Recorded ?Last Taken ?Type trazodone 50 mg tablet 50 mg PO .ONCE A DAY 04/17/23 Unknown History prednisone 20 mg tablet 60 mg (3 x 20 mg) PO DAILY #90 tabs 09/03/23 Unknown Rx risankizumab-rzaa 60 mg/mL 600 mg .Route 09/10/23 Unknown History intravenous solution (Skyrizi) dicyclomine 20 mg tablet 60 mg (3 x 20 mg) PO TID #710 tabs 11/11/23 Unknown Rx risankizumab-rzaa 180 mg/1.2 mL 180 mg (1.2 mL) subcut Q8W #1.2 mL 12/16/23 Unknown Rx (150 mg/mL) subcut wearable injector (Skyrizi) Allergy/AdvReac Type Severity Reaction Status Date / Time No Known Allergies Allergy Verified 12/26/23 11:13 Surgical History History of appendectomy History of colonoscopy History of partial hysterectomy Social History Smoking Status: Current every day smoker tobacco type: e-cigarettes substance use type: does not use ROS ROS ED Constitutional Constitutional ED: Denies chills or fever(s) Cardiovascular Cardiovascular: Denies chest pain Respiratory/Chest Respiratory/Chest: Denies cough Gastrointestinal Gastrointestinal: Reports abdominal pain, constipation and nausea; Denies diarrhea or vomiting Genitourinary Genitourinary ED: Denies dysuria or hematuria Musculoskeletal Musculoskeletal: Reports back pain; Denies arthralgias or myalgias Integumentary Denies rash Neurologic Neurologic: Denies weakness Psychiatric Psychiatric: Denies anxiety EXAM Physical Exam Const Vital Signs: 12/26/23 11:12 12/26/23 13:11 12/26/23 15:00 Temperature 96.8 F L Temperature Source Temporal Pulse Rate 74 100 97 Respiratory Rate 22 H 20 H 17 Blood Pressure 102/72 98/62 82/53 L Blood Pressure Mean 82 74 62 Pulse Ox 99 99 97 Oxygen Delivery Method Room Air Room Air Room Air 12/26/23 15:33 Temperature Temperature Source Pulse Rate Respiratory Rate Blood Pressure 100/72 Blood Pressure Mean 81 Pulse Ox Oxygen Delivery Method Positive well nourished and well developed General Appearance ED: well developed HEENT Reports moist mucous membranes Neck supple Resp normal respiratory effort and clear to auscultation bilaterally Cardio regular rate and regular rhythm GI Inspection: Negative for abdominal distention Auscultation: normoactive bowel sounds Palpation: soft and tender suprapubic; Negative for guarding Back/Spine no CVA tenderness Extremity full ROM Neuro moves all extremities Sensorium / Orientation: alert Motor Exam: Negative for general weakness Psych mental status grossly normal and thought process normal MDM MDM MDM Narrative Medical decision making narrative: Patient is evaluated with sudden onset of pelvic pain after tipping of a bowel movement. Complain of some mild constipation. Upon arrival patient is quite tender in her lower abdomen and is given IV morphine. Does have a history of Crohn's disease and is concerned she is having a Crohn's flare. Does report some mild constipation recently however she is passing gas and low suspicion for an obstruction. Basic lab work obtained including a CBC and CMP. It is largely normal. No leukocytosis. Patient continues to have pain. Is given additional dose of Toradol and now Dilaudid. CT of the abdomen and pelvis obtained which shows right adnexal lesion that is 2.6 cm which may be hemorrhagic cyst and small amount of free fluid in the pelvis as well as mild wall thickening of the distal small bowel Secondary inflammatory enteritis with no bowel obstruction and moderate diffuse colonic stool retention. Patient is reevaluated continues to have pain. Pelvic ultrasound is obtained which is most suggestive of a hemorrhagic cyst however radiology cannot be entirely certain. I did discuss this with radiology. Case then discussed the patient's [employer] OFFICER, Dr. Tamayo. She recommends repeat H&H given her continued pain. She also questions of the patient had recent intercourse as this could be associated with ovarian cyst rupture. Patient admits that she did have intercourse this morning. Repeat hemoglobin is now 11.5 which is almost a 2 g drop. Patient is continued pain and given additional dose of Dilaudid. She notes her pain initially had improved but is worsened after the transvaginal ultrasound. She does have a transient episode of hypotension but continues to seem well-perfused on exam and is asymptomatic. Is given a fluid bolus with improvement. Type and screen is sent. Case is again discussed with Dr. Tamayo and patient will be admitted to her service for serial abdominal exams and H&H monitoring. I did discuss the case with the patient's GI doctor, Dr. Mcmillan. Given her immunosuppression and symptoms he does recommend starting the patient on 14-day course of Cipro and Flagyl as well. She is ordered first dose in the emergency room. She ultimately will require medication for constipation however at this time will start by admitting to gynecologic service. Lab Data Attestation: I reviewed the patient's lab results. Labs: Laboratory Results - last 24 hr 12/26/23 12/26/23 12/26/23 11:29 14:57 15:40 WBC 6.9 RBC 4.64 Hgb 13.4 11.5 L Hct 41.0 34.6 L MCV 88.4 MCH 28.9 MCHC 32.7 RDW Std Deviation 44.1 H RDW Coeff of Timothy 13.6 Plt Count 235 MPV 10.5 Immature Gran % (Auto) 0.300 Neut % (Auto) 55.3 Lymph % (Auto) 36.2 [place] % (Auto) 7.1 Eos % (Auto) 0.7 Baso % (Auto) 0.4 Absolute Neuts (auto) 3.8 Absolute Lymphs (auto) 2.51 Nucleated RBC % 0 Sodium 138 Potassium 4.2 Chloride 109 H Carbon Dioxide 25.0 Anion Gap 4 L BUN 16 Creatinine 0.68 Estim Creat Clear Calc 86.27 Est GFR (MDRD) Af Amer 124 Est GFR (MDRD) Non-Af 102 BUN/Creatinine Ratio 23.5 H Glucose 93 Calcium 8.8 Total Bilirubin 0.90 AST 18 ALT 17 Alkaline Phosphatase 78 Total Protein 7.5 Albumin 3.6 Globulin 3.9 Albumin/Globulin Ratio 0.9 Blood Type O POSITIVE Antibody Screen NEGATIVE Radiography Diagnostic Testing: Clinical Impression(s) from Imaging Studies Abdomen/Pelvis CT 12/26/23 11:43 IMPRESSION: 1. Crenulated appearance peripherally enhancing cystic lesion within the right adnexa measuring 2.6 cm may be a hemorrhagic cyst. Small volume free fluid may be physiologic. 2. Mild wall thickening of the distal small bowel perhaps secondary to inflammatory enteritis. No bowel obstruction. 3. Moderate diffuse colonic stool retention. Electronically Signed: Handy Cisse DO at 12:23 EDT , Transvaginal US 12/26/23 13:34 IMPRESSION: 1. Hypoechoic lesion within the right ovary with peripheral although no internal vascular flow is identified measuring up to 2.3 cm correlating with the comparison CT findings although without definitive sonographic findings of a hemorrhagic cyst. 2. Status post hysterectomy. 3. Mild free fluid in the cul-de-sac with subtle internal echoes suggesting hemoperitoneum. 4. No evidence of ovarian torsion. Electronically Signed: Handy Cisse DO at 14:26 EDT , ADDENDUM: 12/26/23 1438 IMPRESSION: 1. Hypoechoic lesion within the right ovary with peripheral although no internal vascular flow is identified measuring up to 2.3 cm correlating with the comparison CT findings although without definitive sonographic findings of a hemorrhagic cyst. 2. Status post hysterectomy. 3. Mild free fluid in the cul-de-sac with subtle internal echoes suggesting hemoperitoneum. 4. No evidence of ovarian torsion. N.B. : The above Results were Read Back by Handy Cisse DO to Mary Jaramillo DO, and understanding confirmed on 12/26/2023 14:31:52 (ET). Electronically Signed: Handy Cisse DO at 14:26 EDT , Management Discussion w/another healthcare provider: [employer] (GI, OB) Discharge Plan Dx/Rx/DC Orders Clinical Impression: Hemorrhagic cyst of right ovary, Crohn's disease, Anemia, Constipation Disposition Disposition: Acute Care Hospital [facility] Discharge Date/Time: 12/26/23 16:33
[2023-12-26 12:10] LABS: Absolute Lymphocyte Count 2.51 X10^3/uL (0.83-4.51); Absolute Neutrophil Count 3.8 X10^3/uL (2.0-7.7); Basophil# 0.03 X10^3/uL; Basophil% 0.4 % (0-1); Eosinophil# 0.05 X10^3/uL; Eosinophils% 0.7 % (0-5); Hemoglobin 13.4 g/dL (12.0-15.0); Lymphocyte # 2.51 X10^3/ul (0.83-4.51); Lymphocyte % 36.2 % (19-41); Mean Corp Hgb Conc 32.7 g/dL (32-36); Mean Corpuscular Hgb 28.9 pg (27.0-32.0); Mean Corpuscular Volume 88.4 fL (81-99); Mean Platelet Vol. 10.5 fl (6.2-12.0); Monocyte# 0.49 X10^3/uL; Monocyte% 7.1 % (0-10); NRBC Flagged by Analyzer 0 % (0-5); Neutrophil # 3.84 X10^3/uL (2.7-7.7); Neutrophil % 55.3 % (47-70); Platelet Count 235 K/mm3 (150-450); RBC Distribution Width CV 13.6 % (11.6-14.6); RBC Distribution Width SD 44.1 fl (35.1-43.9); Red Blood Count 4.64 M/mm3 (4.2-5.4); White Blood Count 6.9 K/mm3 (4.4-11.0)
[2023-12-26 12:23] LABS: ALB/GLOB Ratio 0.9 RATIO (0.9-2.4); AST(SGOT) 18 U/L (15-37); Alanine Aminotransfer ALT/SGPT 17 U/L (13-56); Albumin, Serum 3.6 g/dL (3.2-5.0); Alkaline Phosphatase 78 U/L (45-117); Anion Gap 4 (5-15); BUN 16 mg/dL (7-18); BUN/Creat Ratio 23.5 RATIO (10-20); Calcium,Total 8.8 mg/dL (8.5-10.1); Chloride 109 mmol/L (98-107); Creatinine, Serum 0.68 mg/dL (0.55-1.02); EST Glomerular Filtration Rate 102 mL/min (>60); Est Glom Filt Rate - Afr Amer 124 mL/min (>60); Estimated Creatinine Clearance 86.27 ml/min; Globulin 3.9 g/dL (2.2-4.2); Glucose 93 mg/dL (74-106); Potassium 4.2 mmol/L (3.5-5.1); Protein, Total 7.5 g/dL (6.4-8.2); Sodium Level 138 mmol/L (136-145)
[2023-12-26] MEDS: 0.9% Normal Saline (1000mL) 1,000 ML 125 ML IV (12:41)
--- NOTE | 2023-12-26 13:34 | US_ITS ---
We are attempting to reach an attending provider to discuss findings. An addendum with communication details will be sent when the communication is complete. EXAM: US PELVIS TRANSVAGINAL CLINICAL INDICATION: pelvic pain, ? torsion -- not preg TECHNIQUE: Transvaginal pelvic ultrasound was performed with grayscale and color Doppler imaging. Transvaginal imaging was used for better evaluation of the endometrium and adnexa. COMPARISON: CT abdomen and pelvis on the same date. FINDINGS: UTERUS/CERVIX: Status post hysterectomy. RIGHT OVARY: Hypoechoic lesion within the right ovary with peripheral although no internal vascular flow is identified measuring up to 2.3 cm correlating with the comparison CT findings although without definitive sonographic findings of a hemorrhagic cyst. Blood flow is present in the right ovary. The right ovary measures 3.4 x 2.8 x 2.6 cm. LEFT OVARY: No significant abnormality. Blood flow is present in the left ovary. The left ovary measures 1.9 x 0.8 x 1.1 cm. FREE FLUID: Mild free fluid in the cul-de-sac with subtle internal echoes suggesting hemoperitoneum. BLADDER: Empty bladder which cannot be evaluated with this probe. US/Transvaginal Non- IMPRESSION: 1. Hypoechoic lesion within the right ovary with peripheral although no internal vascular flow is identified measuring up to 2.3 cm correlating with the comparison CT findings although without definitive sonographic findings of a hemorrhagic cyst. 2. Status post hysterectomy. 3. Mild free fluid in the cul-de-sac with subtle internal echoes suggesting hemoperitoneum. 4. No evidence of ovarian torsion. Electronically Signed: Handy Cisse DO at 14:26 EDT ,
[2023-12-26] MEDS: Ketorolac 15 MG/ML Vial IV (13:43)
[2023-12-26] MEDS: HYDROmorphone 0.5 MG/0.5 ML SYRINGE IV ×2 (13:44→15:26)
[2023-12-26 15:04] LABS: Hematocrit 34.6 % (37-47); Hemoglobin 11.5 g/dL (12.0-15.0)
[2023-12-26] MEDS: 0.9% Normal Saline (1000mL) 1,000 ML 999 ML IV (15:43)
[2023-12-26] MEDS: Ciprofloxacin 500 MG Tablet PO ×2 (15:57→22:02)
[2023-12-26] MEDS: metroNIDAZOLE 500 MG Tablet PO ×2 (15:57→22:02)
[2023-12-26] MEDS: 0.9% Normal Saline (1000mL) 1,000 ML 100 ML IV (17:04)
[2023-12-26] MEDS: HYDROmorphone 1 MG/ML Syringe IV ×2 (18:18→22:04)
[2023-12-26 18:28] LABS: Absolute Lymphocyte Count 2.88 X10^3/uL (0.83-4.51); Basophil# 0.03 X10^3/uL; Basophil% 0.5 % (0-1); Eosinophil# 0.09 X10^3/uL; Eosinophils% 1.4 % (0-5); Hematocrit 33.1 % (37-47); Lymphocyte # 2.88 X10^3/ul (0.83-4.51); Lymphocyte % 44.2 % (19-41); Mean Corp Hgb Conc 33.2 g/dL (32-36); Mean Corpuscular Hgb 29.9 pg (27.0-32.0); Mean Corpuscular Volume 89.9 fL (81-99); Mean Platelet Vol. 10.7 fl (6.2-12.0); Monocyte# 0.46 X10^3/uL; Monocyte% 7.1 % (0-10); NRBC Flagged by Analyzer 0 % (0-5); Neutrophil # 3.04 X10^3/uL (2.7-7.7); Neutrophil % 46.5 % (47-70); Platelet Count 177 K/mm3 (150-450); RBC Distribution Width CV 13.6 % (11.6-14.6); RBC Distribution Width SD 44.9 fl (35.1-43.9); Red Blood Count 3.68 M/mm3 (4.2-5.4); White Blood Count 6.5 K/mm3 (4.4-11.0)
--- NOTE | 2023-12-26 19:58 | PCM.HP.BLA ---
History and Physical Date of Admission: 12/26/23 38-year-old who was previously undergone hysterectomy notes she had intercourse this morning. Soon after she had acute onset of right lower quadrant pain. She arrived to the emergency room. She was evaluated and found to have a hemorrhagic ovarian cyst. She states the pain is about the same as when she came in. She denies lightheadedness dizziness, shortness of breath, fevers or chills. She denies any nausea or vomiting or changes in bowel movements. She states she is very hungry. Past medical history is significant for Crohn's disease, hepatitis C, previous ovarian cysts Past surgical history is significant for laparoscopic appendectomy, at which time it was noted she had hemorrhagic ovarian cyst as well. She also had a hysterectomy in the past but ovaries both remain Physical exam: General awake, alert, no acute distress Skin warm dry and intact Abdomen flat, soft, mild voluntary guarding, no rebound. Some referred pain with palpation on the left to the right side. Assessment & Plan Assessment/Plan (1) Hemorrhagic cyst of right ovary: PLAN: Discussed with the patient the ultrasound findings. Reviewed ultrasound findings and labs. Patient is hemodynamically stable. No significant drop in hemoglobin since admitted. Discussed with her that likely the bleeding from the ovary stable. However, if vitals change or pain worsens, or significant drop in hemoglobin between now and the a.m. check, will need to take her to surgery. Patient states understanding and agreement with the plan. Send she has been stable for the past 7 to 8 hours, okay for her to eat dinner. Will make her n.p.o. except clear liquids at midnight.
[2023-12-26] MEDS: traZODone 50 MG Tablet PO (22:02)
[2023-12-27] VITALS (18 sets, daily range): BP systolic 85–120; BP diastolic 53–88; PULSE 54–75; RESP 14–18; TEMP 36.3–37.1; O2SAT 95–100; BMI 18.6
[2023-12-27] MEDS: 0.9% Normal Saline (1000mL) 1,000 ML 100 ML IV ×2 (02:49→10:45)
[2023-12-27] MEDS: metroNIDAZOLE 500 MG Tablet PO ×2 (06:13→14:55)
[2023-12-27] MEDS: HYDROmorphone 1 MG/ML Syringe IV (06:22)
[2023-12-27 06:27] LABS: Absolute Lymphocyte Count 2.29 X10^3/uL (0.83-4.51); Basophil# 0.03 X10^3/uL; Basophil% 0.5 % (0-1); Eosinophil# 0.13 X10^3/uL; Eosinophils% 2.1 % (0-5); Hemoglobin 10.2 g/dL (12.0-15.0); Lymphocyte # 2.29 X10^3/ul (0.83-4.51); Lymphocyte % 37.9 % (19-41); Mean Corp Hgb Conc 31.9 g/dL (32-36); Mean Corpuscular Hgb 28.8 pg (27.0-32.0); Mean Corpuscular Volume 90.4 fL (81-99); Monocyte# 0.58 X10^3/uL; Monocyte% 9.6 % (0-10); NRBC Flagged by Analyzer 0 % (0-5); Neutrophil % 49.6 % (47-70); Platelet Count 158 K/mm3 (150-450); RBC Distribution Width CV 13.7 % (11.6-14.6); RBC Distribution Width SD 46.1 fl (35.1-43.9); Red Blood Count 3.54 M/mm3 (4.2-5.4); White Blood Count 6.1 K/mm3 (4.4-11.0)
[2023-12-27] MEDS: Acetaminophen 500 MG Tablet 1000 MG PO (09:11)
--- NOTE | 2023-12-27 10:14 | PN_ITS ---
Progress Note Pain still bothersome. It is difficult to move and she didn't sleep well b/c of it. No SOB/CP Physical Exam Narrative Awake, alert, NAD but uncomfortable w/ movement. Pain w/ urination. no N/V abd- soft, nondistended but moderate tenderness and some rebound and guarding th is am. Assessment & Plan Assessment/Plan (1) Hemorrhagic cyst of right ovary: PLAN: likely still bleeding, hgb trending down and pain worsening. likely surgery. Recheck CBC now. NPO. Ok for toradol
[2023-12-27 10:51] LABS: Hematocrit 31.3 % (37-47); Hemoglobin 10.3 g/dL (12.0-15.0); Mean Corp Hgb Conc 32.9 g/dL (32-36); Mean Corpuscular Hgb 29.8 pg (27.0-32.0); Mean Corpuscular Volume 90.5 fL (81-99); Mean Platelet Vol. 10.5 fl (6.2-12.0); Platelet Count 145 K/mm3 (150-450); RBC Distribution Width CV 13.7 % (11.6-14.6); RBC Distribution Width SD 45.6 fl (35.1-43.9); Red Blood Count 3.46 M/mm3 (4.2-5.4); White Blood Count 4.7 K/mm3 (4.4-11.0)
[2023-12-27] MEDS: Ketorolac 30 MG/ML Syringe IV (11:10)
[2023-12-27] MEDS: Ciprofloxacin 500 MG Tablet PO (11:15)
--- NOTE | 2023-12-27 12:11 | PCM.PRE.AN2 ---
ASA Classification* ASA Classification ASA Classification: 2 and E Assessment & Plan Anesthesia* Anesthesia Assessment Anesthesia Assessment: Discussed sedation and/or anesthesia options, risks, benefits, and alternatives with patient/parents/legal guardian/POA. Questions invited. The patient/parents/legal guardian/POA seems to understand and agrees to proceed with anesthesia plan. Reviewed the physical assessment, medical history, allergy history and patient home medications list prior to surgery/procedure/anesthetic and documented any changes. Performed airway and anesthesia risk assessments. Anesthesia Type Anesthesia Type: General Anesthesia Focused Assessment* Temperature: 98.7 F Pulse Rate: 58 Blood Pressure: 85/53 Respiratory Rate: 16 Pulse Ox: 98 Airway Assessment Mouth opens: >3 cm Mallampati Score: II Focused Labs Anesthesia Preop lab: CBC WBC 4.7 K/mm3 (4.4-11.0) 12/27/23 10:45 RBC 3.46 M/mm3 (4.2-5.4) L 12/27/23 10:45 Hgb 10.3 g/dL (12.0-15.0) L 12/27/23 10:45 Hct 31.3 % (37-47) L 12/27/23 10:45 Plt Count 145 K/mm3 (150-450) L 12/27/23 10:45 CHEMISTRY Potassium 4.2 mmol/L (3.5-5.1) 12/26/23 11:29 Sodium 138 mmol/L (136-145) 12/26/23 11:29 BUN 16 mg/dL (7-18) 12/26/23 11:29 Creatinine 0.68 mg/dL (0.55-1.02) 12/26/23 11:29 Glucose 93 mg/dL (74-106) 12/26/23 11:29 COAG Pre-Assessment Diagnosis/Proposed Procedure Planned Operative Procedure(s): Exploratory laparoscopy Anesthesia History Anesthesia History - reading interventionist: Anesthesia History - reading interventionist Hx Hospitalization No 06/09/22 14:44 Any Problems With Anesthesia No 12/27/23 10:18 Cholinesterase deficiency No 12/27/23 10:18 You/Your Family Experience No 12/27/23 10:18 fever (hyperthermia) with Relationship Recent Exposure to Contagious No 12/27/23 10:18 Disease Does patient have nerve No 12/27/23 10:18 stimulator Patient instructed to have No 12/27/23 10:18 device shut off --Does patient have Pacemaker No 12/27/23 11:19 or ICD? When Was Last Pacemaker Check QUESTION #4 FULL TEXT: You/Your Family Experience fever (hyperthermia) with Anesthesia Last Oral Intake Last Oral intake: Last Oral Intake NPO since 09:00 12/27/23 11:19 Meds taken in AM with sips of Yes 12/27/23 11:19 water? Meds patient instructed to cirpo 12/27/23 11:19 take am of surgery PONV PONV - reading interventionist: PONV - reading interventionist Female HX of Motion Sickness HX of N/V After Surgery Non-Smoker Duration of Surgery greater than 60 minutes Number of Risk Factors PONV Score Height & Weight Height & Weight: Anesthesia: Height & Weight Height 5 ft 4 in 12/27/23 11:19 Weight: 49.2 kg 12/27/23 11:19 Body Mass Index (BMI) 18.6 12/27/23 11:19 Respiratory Assessment Respiratory Assessment - reading interventionist: Respiratory Tract Infection Hx - reading interventionist Hx Respiratory Tract Infection No 12/27/23 10:18 STOP Sleep Apnea STOP Sleep Apnea - reading interventionist: STOP Sleep Apnea - reading interventionist Hx Hypertension No 12/26/23 16:55 Hx Sleep Apnea No 12/26/23 16:55 CPAP No 06/12/22 07:50 BIPAP Do you snore loudly (louder No 12/26/23 16:55 than talking or can be heard Do you often feel tired/ No 12/26/23 16:55 fatigued/ sleepy during daytime? Has anyone observed you stop No 12/26/23 16:55 breathing during sleep? STOP Results Negative 12/26/23 16:55 QUESTION #5 FULL TEXT : Do you snore loudly (louder than talking or can be heard through closed doors)? Tobacco Use History Tobacco Use History - reading interventionist: Tobacco Use History - reading interventionist Tobacco Use Smoking Status Current every day smoker 12/26/23 23:31 Hx Tobacco Use Yes 12/26/23 16:55 Years Smoking Packs Smoked per Day Smoking Cessation Date was within the last 15 years Hx Smoking Cessation Date Hx Smoking Cessation Counseling Hematologic Medial History Hematologic Hx - reading interventionist: Hematologic Medical Hx - fiberglass grinder Hx of Blood Transfusion No 12/26/23 16:55 Hx of Transfusion in last 3 No 12/26/23 16:55 Months Date of Last Transfusion (if within last 3 months) Ever experience any problems No 12/26/23 16:55 with transfusion(s)? Specify any problems Hx of Preganancy in last 3 No 12/26/23 16:55 Months Nurse Filling Out Transfusion [email or web address] 12/26/23 16:55 & Questions: Date: 12/26/23 12/26/23 16:55 Time: 17:12/26/23 16:55 Patient unable to answer at this time (ie. confused, unrespo /Reproduction History /Reproductive History - reading interventionist: /Reproductive Hx- reading interventionist Hx Now No 12/27/23 10:18 Gestational Age (in weeks): EDC: Hx Hx Para Hx Section SAB No 12/27/23 10:18 Active Medications Active Medications: Current Medications Generic Name Dose Route Start Last Admin Trade Name Freq PRN Reason Stop Dose Admin Acetaminophen 1,000 mg 12/26/23 16:53 12/27/23 09:11 Acetaminophen 500 Mg Tablet PO 1,000 mg Q8H PRN PRN Administration Pain 1-10 or Fever Ciprofloxacin HCl 500 mg 12/26/23 15:45 12/27/23 11:15 Ciprofloxacin 500 Mg Tablet PO 01/09/24 15:46 500 mg BID SHALA Administration Hydromorphone HCl 1 mg 12/26/23 16:53 12/27/23 06:22 Hydromorphone 1 Mg/Ml Syringe IV 1 mg Q2H PRN PRN Administration Pain Score 6-10 Sodium Chloride 250 mls @ 15 mls/hr 12/26/23 16:56 IV .[id number] PRN Additional IVPB Infusion Sodium Chloride 250 mls @ 15 mls/hr 12/26/23 16:56 IV .[id number] PRN Saline Flush Sodium Chloride 1,000 mls @ 100 mls/hr 12/27/23 11:15 IV .Q10H SHALA Metronidazole 500 mg 12/26/23 15:45 12/27/23 06:13 Metronidazole 500 Mg Tablet PO 01/09/24 15:46 500 mg TID SHALA Administration Ondansetron HCl 4 mg 12/26/23 16:53 Ondansetron 4 Mg/2 Ml Vial IV Q6H PRN PRN NAUSEA Prochlorperazine Edisylate 10 mg 12/26/23 16:53 Prochlorperazine 10 Mg/2 Ml Vial IV Q6H PRN PRN NAUSEA/VOMITING Sodium Chloride 10 - 40 ml 12/26/23 16:56 0.9% Saline Lock 10 Ml Syringe IV UD PRN SALINE FLUSH Trazodone HCl 50 mg 12/26/23 22:00 12/26/23 22:02 Trazodone 50 Mg Tablet PO 50 mg QHS SHALA Administration PFSH Medical History History of intravenous drug abuse Wears glasses Wears dentures Abscess Loss of consciousness History of Crohn's disease Vapes nicotine containing substance History of edema History of stress test Depression Substance abuse Arthritis Low iron Easy bruising Back pain Cystic fibrosis Smoker Pilonidal cyst without mention of abscess MRSA (methicillin resistant staph aureus) culture positive Home Medications ?Medication ?Instructions ?Recorded ?Last Taken ?Type trazodone 50 mg tablet 50 mg PO .ONCE A DAY 04/17/23 Unknown History dicyclomine 20 mg tablet 60 mg (3 x 20 mg) PO TID #710 tabs 11/11/23 Unknown Rx risankizumab-rzaa 180 mg/1.2 mL 180 mg (1.2 mL) subcut Q8W #1.2 mL 12/16/23 12/19/23 Rx (150 mg/mL) subcut wearable injector (Skyrizi) Allergy/AdvReac Type Severity Reaction Status Date / Time No Known Allergies Allergy Verified 12/26/23 11:13 Surgical History History of colonoscopy History of appendectomy History of partial hysterectomy Social History Smoking Status: Current every day smoker tobacco type: e-cigarettes substance use type: does not use Review of Systems (Anesthesia) ROS Narrative System reviewed and no additional complaints, except as documented.
--- NOTE | 2023-12-27 12:20 | NURSING ---
pt to surgery
--- NOTE | 2023-12-27 12:45 | OV_PTH ---
PATIENT: WESTLEY SELLERS LOC: [facility] U#:[id number] AGE/SX: 38/F ROOM: LA313 RE12/26/[address]: Dr. Teodora Tamayo MD : 1985 BED: 1 DIS: 12/27/2023 SPEC #: [id number] RECD: 12/28/23 09:59 STATUS: EVAN HORNE #: [id number] STEPHANIE: 12/27/23 12:[address]: Teodora Tamayo DEPT: SURGICAL PATHOLOGY RECD BY: Orin Leger ENTERED: 12/28/23 11:41 SP TYPE: OVARY OTHR DR: Dr. Teri Crocker MD Tissues: Right ovary Procedures: Surgery Specimen Level II Surgery Specimen Level IV HEADER OPERATION: Diagnostic laparoscopy, right salping-oopherectomy PRE-OP DIAGNOSIS: Hemorrhagic cyst of right ovary TISSUE SUBMITTED: Bilateral fallopian tubes, right ovary and cyst MICROSCOPIC DIAGNOSIS Bilateral fallopian tubes, salpingectomies: Complete cross sections of two fallopian tubes. One fallopian with benign paratubal cyst. Ovary: Hemorrhagic corpus luteal cysts, benign follicular cysts and corpora albicantia. Detached ovarian cyst: Hemorrhagic corpus luteal cyst. MYLES/ 12/29/2023 MICROSCOPIC DESCRIPTION Slides are reviewed. GROSS DESCRIPTION Received in fixative is one container labeled with the patient's name and designated bilateral fallopian tubes and right ovarian cyst. The specimen consists of bilateral fallopian tubes including fimbrial ends, detached ovary and ovoid an congested nodule identified as cyst. One of the fallopian tubes measuring 4.0 cm in length and 0.5 cm in diameter. Fimbrial end is identified. A paratubal cyst is also noted measuring 1.0 x 0.6 x 0.6cm. The cyst is filled with clear fluid. Sections reveal unremarkable cut surfaces. Second fallopian tube measures 4.5cm in length and 0.5cm in diameter. Fimbrial end is identified. Sections reveal unremarkable cut surfaces. The ovary measures 4.2 x 2.5 x 2.0cm. Focal area of defect is noted and represent detached cyst. Sections reveal a few cysts filled with clear fluid. The largest is measured 0.5cm in greatest dimension. The detached nodule identifies as a detached cyst measures 2.7 x 2.0 x 2.0cm. Sections reveal hemorrhagic cut surfaces. The fallopian tubes are not identified as right or left. Adolescent Medicine Specialist sections are submitted in six cassettes as follows: 1- one fallopian tube and paratubal cyst, 2- second fallopian tube, 3&4- identified as right ovary, 5&6- identified as cyst. / ROSETTA: 12/28/2023 TC:1 CPT: 95433,37304l3
--- NOTE | 2023-12-27 12:50 | PCM.PN.BLA ---
Progress Note hemaglobin stable but pain significant and requiring continuous medication. Concern for continued or increased bleeding when activity level increases at home. R/B/A to surgical intervention reviewed, questions answered to her satisfaction and she desires to proceed w/ laparscopic evacuation of hemoperitoneum, possilble right ovarian cystectomy vs oophorectomy, consent signed.
[2023-12-27] MEDS: Bupivacaine Mpf 0.5% 30 ML VIAL (13:00)
[2023-12-27] MEDS: Lactated Ringers 1,000 ML 15 ML IV (13:01)
--- NOTE | 2023-12-27 13:24 | OP.PCM_ITS ---
Problems Associated Problem List Diagnoses (1) Hemorrhagic cyst of right ovary: Report of Operation Date of Procedure: 12/27/23 Pre-Operative Diagnosis: hemoperitoneum, acute abdominal pain, hemorrhagic right ovarian cyst Post-Operative Diagnosis: same Surgery/Procedure Performed:: laparoscopic RSO, left salpingectomy, lysis of adhesions and evacuation of hemoperitoneum Description of Surgical Findings:: filmy adhesions of left tube to vaginal cuff and small bowel to cuff, normal left tube and ovary, right tube normal and right ovary w/ cyst w/ clot extruding and some bleeding, otherwise normal Surgeon: Teodora Tamayo tape coater: Kendall Lopez Type of Anesthesia: General Anesthesiologist: Damaris De La O Special Medications: none Specimen's removed: right tube and ovary, left fallopian tube Drains: none Estimated Blood Loss (mL): 300 Fluids Replaced: 800 Description of Procedure: The patient was taken to the operating room where she was prepped and draped in the dorsolithotomy position. A sponge stick was placed in the vagina. Attention was turned to the abdomen. All port sites were infiltrated with 0.5% Marcaine before skin incisions were made. A 5 mm intraumbilical incision was made. The anterior abdominal wall was tented up with 2 towel clamps while a 5 mm blade less trocar and sleeve were directly inserted with the Visiport. Intraperitoneal placement was confirmed with the laparoscope. The pneumoperitoneum was created and the underlying abdominal contents were intact. The patient was placed in Trendelenburg. Right and left lower quadrant ports were placed under direct visualization lateral to the inferior epigastric vessels. The bowel was swept away and the above findings were noted. The suction electric meter installer helper was used to clear clot and debris out of the vagina. There is a clot extruding off the right ovary. When it was irrigated it began to actively bleed again. There was a filling filmy adhesions of the small bowel to the vaginal cuff and the left tube to the vaginal cuff. These were taken down with the LigaSure device. Decision was then made to proceed with bilateral salpingectomy and removal of right ovarian cyst. Both fallopian tubes were clamped, sealed and transected with the LigaSure device on the antimesenteric portion. These were amputated and removed and the pedicles were hemostatic. The left tube did have a paratubal cyst on it. The LigaSure device was used to remove the right ovarian cyst. However then there began to be active bleeding from the ovary itself. I used a LigaSure to try and control the bleeding but it continue to be active. Decision was made to move the entire right tube. Bilateral ureters were identified and seen peristalsing before I remove the fallopian tubes. It was well out of the way of the infundibulopelvic ligament. The infundibulopelvic ligament was clamped, sealed and transected with the LigaSure device and was hemostatic. The tubes were brought out through the 5 mm ports. A 5 mm Endo Catch bag was placed in umbilical port and the specimens were placed in the bag. The port was removed. The fascia was stretched. The bag was brought out with the right ovary and right ovarian cyst and side. The pedicles were again examined and found to be hemostatic. The lateral ports were removed under direct visualization and no active bleeding was noted. Some Debbie was placed over the pedicles. The pneumoperitoneum was released. The fascia in the umbilical port was closed with 0 Vicryl suture. The skin incisions were closed with Monocryl suture in a subcuticular fashion and skin glue by the SURVEY WORKERS SUPERVISOR with me present in the operating suite. The vaginal instruments were removed and the vaginal sweep was completed by me. The procedure was performed by me with assistance other than as dictated above. All sponge and needle counts were correct and the patient was taken to the recovery room in stable condition. Grafts/Implants Used: none Procedure Start Time: 12:56 Procedure Stop Time: 13:31 Complications none Admit VTE Documentation VTE Present on Admission: No VTE Mechan Device Prophylaxis: SCD's VTE Pharm Prophylaxis ordered?: No Reason prophylaxis not ordered:: Procedure Not Indicated
--- NOTE | 2023-12-27 13:47 | PCM.POST.ANE ---
Anesthesia: Postop Eval I Current Vital Signs Temperature: 97.3 F Pulse Rate: 58 Blood Pressure: 114/88 Respiratory Rate: 14 Pulse Ox: 99 Oxygen Delivery Method: Room Air Assessment Airway patent: Yes Spontaneous unlabored respirations: Yes Mental status: Awake and Calm nausea: No Vomiting: No Anesthesia Complication: No Fluid Hydration Crystalloid volume administer (ml): 400 Total IV fluid infused: 400 Progress Note Post-operative progress note: Pt to pacu awake. VSS, report to RN Anesthesia document: Postop Eval 1 completed: Yes
--- NOTE | 2023-12-27 13:49 | POSTOPAN2_ITS ---
Anesthesia Postop Eval I Sum Postop Eval Completion status Anesthesia document: Postop Eval 1 completed: Yes Anesthesia Postop Eval I Summary Anesthesia Postop Eval I Summary: Anesthesia Postop Eval I: Assessment Summary Airway patent Yes 12/27/23 13:49 TRANSMITTER ENGINEER IN CHARGE.SHOL Spontaneous unlabored Yes 12/27/23 13:49 TRANSMITTER ENGINEER IN CHARGE.SHOL respirations Mental status Awake,Calm 12/27/23 13:49 TRANSMITTER ENGINEER IN CHARGE.SHOL nausea No 12/27/23 13:49 TRANSMITTER ENGINEER IN CHARGE.SHOL Vomiting No 12/27/23 13:49 TRANSMITTER ENGINEER IN CHARGE.SHOL Anesthesia Postop Eval I: Fluid Summary Crystalloid volume administer 400 12/27/23 13:49 TRANSMITTER ENGINEER IN CHARGE.SHOL (ml) Colloids volume administered ( ml) Blood Product volume administered (ml) Total IV fluid infused 400 12/27/23 13:49 TRANSMITTER ENGINEER IN CHARGE.SHOL Anesthesia Postop Eval I: Summary Notes Anesthesia Complication No 12/27/23 13:49 TRANSMITTER ENGINEER IN CHARGE.SHOL Anesthesia Complication Comment: Post-operative progress note Pt to pacu awake. 12/27/23 13:49 TRANSMITTER ENGINEER IN CHARGE.SHIKHA VSS, report to RN Anesthesia: Postop Eval II Evaluation Mental status: Awake and Calm Pain Level: 9 nausea: No Vomiting: No Complications Anesthesia Complication: No
--- NOTE | 2023-12-27 13:49 | PCM.POSTANE2 ---
Anesthesia Postop Eval I Sum Postop Eval Completion status Anesthesia document: Postop Eval 1 completed: Yes Anesthesia Postop Eval I Summary Anesthesia Postop Eval I Summary: Anesthesia Postop Eval I: Assessment Summary Airway patent Yes 12/27/23 13:49 MANAGEMENT ACCOUNTS MANAGER.SHOL Spontaneous unlabored Yes 12/27/23 13:49 MANAGEMENT ACCOUNTS MANAGER.SHOL respirations Mental status Awake,Calm 12/27/23 13:49 MANAGEMENT ACCOUNTS MANAGER.SHOL nausea No 12/27/23 13:49 MANAGEMENT ACCOUNTS MANAGER.SHOL Vomiting No 12/27/23 13:49 MANAGEMENT ACCOUNTS MANAGER.SHOL Anesthesia Postop Eval I: Fluid Summary Crystalloid volume administer 400 12/27/23 13:49 MANAGEMENT ACCOUNTS MANAGER.SHOL (ml) Colloids volume administered ( ml) Blood Product volume administered (ml) Total IV fluid infused 400 12/27/23 13:49 MANAGEMENT ACCOUNTS MANAGER.SHOL Anesthesia Postop Eval I: Summary Notes Anesthesia Complication No 12/27/23 13:49 MANAGEMENT ACCOUNTS MANAGER.SHOL Anesthesia Complication Comment: Post-operative progress note Pt to pacu awake. 12/27/23 13:49 MANAGEMENT ACCOUNTS MANAGER.SHIKHA VSS, report to RN Anesthesia: Postop Eval II Evaluation Mental status: Awake and Calm Pain Level: 9 nausea: No Vomiting: No Complications Anesthesia Complication: No
[2023-12-27] MEDS: Lactated Ringers 1,000 ML 75 ML IV (14:45)
[2023-12-27] MEDS: Dicyclomine 10 MG Capsule 60 MG PO (14:55)
[2023-12-27] MEDS: Ondansetron 4 MG/2 ML Vial IV (17:32)
== END 2023-12-27 20:40 | disposition home or self-care (01) ==
LOC: ED 11:43 → MS3 15:55
PROVIDERS: Admitting Provider Obstetrics & Gynecology; Emergency Provider Emergency Medicine; PCP Internal Medicine; Referring Provider Obstetrics & Gynecology; Visit Provider Obstetrics & Gynecology
PROC: (CPT 49320; principal; 2023-12-27 12:30)
DX: N83.11 Corpus luteum cyst of right ovary (principal); K50.90 Crohn's disease, unspecified, without complications; F17.290 Nicotine dependence, other tobacco product, uncomplicated; D64.9 Anemia, unspecified; K66.1 Hemoperitoneum; Z86.19 Personal history of other infectious and parasitic diseases; Z79.899 Other long term (current) drug therapy; Z79.52 Long term (current) use of systemic steroids
CPT/HCPCS: 58661; 00840; 36415; 74177; 76830; 80053; 85014; 85018; 85025; 85027; 86850; 86900; 86901; 88302; 88305; 96361; 96374; 96375; 96376; 99221; 99283; J7030; J7120; Q9967; A4216; G0378; J2405

== ENCOUNTER → 2024-06-21 | Outpatient (CLI) | payer OTHER, SELFPAY ==
[2024-06-21 10:11] LABS: Absolute Lymphocyte Count 1.79 X10^3/uL (0.83-4.51); Absolute Neutrophil Count 3.7 X10^3/uL (2.0-7.7); Basophil# 0.04 X10^3/uL; Basophil% 0.7 % (0-1); Eosinophil# 0.05 X10^3/uL; Eosinophils% 0.8 % (0-5); Hematocrit 40.6 % (37-47); Hemoglobin 13.5 g/dL (12.0-15.0); Lymphocyte # 1.79 X10^3/ul (0.83-4.51); Lymphocyte % 29.9 % (19-41); Mean Corp Hgb Conc 33.3 g/dL (32-36); Mean Corpuscular Hgb 29.3 pg (27.0-32.0); Mean Corpuscular Volume 88.1 fL (81-99); Monocyte# 0.35 X10^3/uL; Monocyte% 5.9 % (0-10); NRBC Flagged by Analyzer 0 % (0-5); Neutrophil # 3.72 X10^3/uL (2.7-7.7); Neutrophil % 62.2 % (47-70); Platelet Count 225 K/mm3 (150-450); RBC Distribution Width CV 13.3 % (11.6-14.6); RBC Distribution Width SD 43.1 fl (35.1-43.9); Red Blood Count 4.61 M/mm3 (4.2-5.4)
[2024-06-21 10:44] LABS: Vitamin B12 762 pg/mL (211-911)
[2024-06-21 11:30] LABS: ALB/GLOB Ratio 0.9 RATIO (0.9-2.4); AST(SGOT) 15 U/L (15-37); Alanine Aminotransfer ALT/SGPT 27 U/L (13-56); Albumin, Serum 3.8 g/dL (3.2-5.0); Alkaline Phosphatase 85 U/L (45-117); Anion Gap 7 (5-15); BUN 11 mg/dL (7-18); BUN/Creat Ratio 16.6 RATIO (10-20); CRP < 2.90 mg/L (0.0-3.0); Chloride 106 mmol/L (98-107); Creatinine, Serum 0.66 mg/dL (0.55-1.02); EST Glomerular Filtration Rate 105 mL/min (>60); Est Glom Filt Rate - Afr Amer 128 mL/min (>60); Globulin 4.1 g/dL (2.2-4.2); Glucose 90 mg/dL (74-106); Protein, Total 7.9 g/dL (6.4-8.2); Sodium Level 138 mmol/L (136-145)
[2024-06-22 03:11] LABS: Hepatitis B Surface Antibody Non-Reactive
[2024-06-27 00:07] LABS: HCV Quant. RNA PCR HCV Not Detected IU/mL (.); Hepatitis B Core Ab Total Negative (Negative); QNTFERON TB Mitogen Value > 10.00 IU/mL (.); QNTFERON TB Nil Value 0.05 IU/mL (.); QNTFERON TB1+ Ag Value 0.06 IU/mL (.); QNTFERON TB2+ Ag Value 0.05 IU/mL (.); QNTIFERON TB Positive Criteria Negative (Negative); Zinc, Plasma or Serum 90 ug/dL (44-115)
== END | disposition home or self-care (01) ==
LOC: LAB 09:30
PROVIDERS: PCP Internal Medicine; Referring Provider Nurse Practitioner Acute Care; Visit Provider Nurse Practitioner Acute Care
DX: B19.20 Unspecified viral hepatitis C without hepatic coma (principal); K50.811 Crohn's disease of both small and large intestine with rectal bleeding; R63.4 Abnormal weight loss; R10.12 Left upper quadrant pain; R10.13 Epigastric pain
CPT/HCPCS: 36415; 80053; 82306; 82607; 84630; 85025; 86140; 86480; 86704; 86706; 87522

== ENCOUNTER → 2024-06-22 | Outpatient (CLI) | payer OTHER, SELFPAY ==
[2024-06-25 03:07] LABS: Calprotectin, Stool 514 ug/g (0-120)
== END | disposition home or self-care (01) ==
LOC: LABSPEC 08:17
PROVIDERS: PCP Internal Medicine; Referring Provider Nurse Practitioner Acute Care; Visit Provider Nurse Practitioner Acute Care
DX: K50.811 Crohn's disease of both small and large intestine with rectal bleeding (principal); R63.4 Abnormal weight loss; R10.12 Left upper quadrant pain; R10.13 Epigastric pain
CPT/HCPCS: 83993

== ENCOUNTER 2024-07-11 05:48 | Day surgery (SDC) | payer OTHER, SELFPAY ==
[2024-07-11] VITALS (8 sets, daily range): BP systolic 83–92; BP diastolic 55–59; PULSE 59–65; RESP 14–16; TEMP 36.6–37.1; O2SAT 98–100; BMI 18.6
--- NOTE | 2024-07-11 06:49 | PCM.HP.STD ---
HPI - General General Date of Admission: 07/11/24 Date of Service: 07/11/24 Chief Complaint: Crohn's disease HPI Narrative WESTLEY SELLERS, is a 38 F who presents HPI HPI Chief Complaint: Crohn's disease Details: WESTLEY SELLERS, is a 38 F who presents to the office today for follow up. Colonoscopy 06.12.22 Simple Endoscopic Score for Crohn's Disease: 20, mucosal inflammatory changes secondary to Crohn's disease. Biopsied. Stricture in the terminal ileum. Dilated. OV 10.02.23 pt reports that she has been doing well; does report abdominal cramping in the morning depending on what she has eaten the night before, states that dicyclomine is helpful. Pt denies skin changes, arthritis, and vision changes. Pt reports 1-2 loose bm per day; denies blood in the stool. Pt reports that she had her first skyrizi infusion on 09.25.23 and states that for a few days after infusion she will have diarrhea. Pt continues with prednisone. OV 06.21.24 pt reports that she recently changed jobs and insurance and has been off of skyrizi for about 4-5 months now. Pt reports intermittent symptoms of lower abdominal pain, stabbing pain in her left side, blood in her stool; pt attributes this to her hemorrhoids, and HB depending on what she eats. Pt reports that she tries to avoid acidic foods. Pt reports occasional diarrhea. - H/O IVDU, HCV, genotype 2b. The plan is for her to be treated with Epclusa 100 mg daily x 12 weeks. - HCV PCR negative 04/10/2022 Last had Skyrizi few months ago Presenting Symptoms: Crohn's abdominal pain and diarrhea - initial diagnosis 2016 - prior to establishing with [facility] CBC: 12/27/2023 HGB 10.3 down from 13.4, PLT 145 CMP: 12/26/2023 unremarkable CRP: 09/19/2022 (H) 7.45 VITAMIN B12: VITAMIN D: ZINC: QUANTIFERON: 05/09/2021 negative HBVsAb: not on record HBVsA04/30/2021 negative HBV Core Total Ab: 04/30/2021 negative Fecal Calprotectin: September 2022 elevated 357 SB imaging: abd/pelvis CT 12.26.23 1. Crenulated appearance peripherally enhancing cystic lesion within the right adnexa measuring 2.6 cm may be a hemorrhagic cyst. Small volume free fluid may be physiologic. 2. Mild wall thickening of the distal small bowel perhaps secondary to inflammatory enteritis. No bowel obstruction. 3. Moderate diffuse colonic stool retention. COLON: 2022 A. Ileocecal valve, biopsy: Focal ulceration with associated acute and chronic inflammation and granulation. B. Terminal ileum, biopsy: Chronic active colitis pattern of injury with focal ulceration. No evidence of dysplasia. See comment. C. Transverse colon, biopsy: No significant pathologic change. No evidence of active colitis. MEDS: Dicyclomine 60mg TID (for lower abdominal cramping) BIOLOGICS: Miller, due to switching job and insurance has been off for a few months - this will be her third a restart (INITIAL START JULY 2022) Inflectra October - April 2022 Azathioprine 2020 STEROIDS: last about 1 year ago VACCINES COVID: denies Varicella Vaccine: exposed as a chilf Shingles Vaccine: denies Hepatitis B Vaccine: denies Pneumonia Vaccine: denies Influenza Vaccine: denies, reports she had Influenza A recently IBD SYMPTOMS: Bowel movements are: diarrhea, usually worse in the morning, 2-3x a day Blood noted in stools: BRBPR - mild Bowel movement urgency present: yes Stool incontinence: denies Nocturnal BM's: occasional Abdominal pain: cramping Rectal pain: with frequent stools QOL: still working and pushing through - reports she is eating ok, but diarrhea after meals - LUQ stabbing pain, does not change with eating, intermittent for the past couple weeks - not her typical Crohn's pain - denies any N/V - epigastric very tender, very sensitive at least a year, intermittent - epigastric protruding with eating - cramping in lower abdomen - this is her typical Crohn's [facility] Medical History History of MRSA infection Anxiety Injury of head and neck Dietary restriction Heartburn Hemorrhagic cyst of right ovary Anemia History of intravenous drug abuse Wears dentures Loss of consciousness History of Crohn's disease Vapes nicotine containing substance History of edema History of stress test Depression Substance abuse Arthritis Low iron Easy bruising Back pain Cystic fibrosis Smoker Pilonidal cyst without mention of abscess Home Medications ?Medication ?Instructions ?Recorded ?Last Taken ?Type trazodone 50 mg tablet 50 mg PO .ONCE A DAY 04/17/23 Unknown History acetaminophen 500 mg tablet 1,000 mg (2 x 500 mg) PO Q8H PRN 12/27/23 Unknown Rx (Tylenol Extra Strength) PRN pain 10 days #30 tabs budesonide 3 mg 9 mg (3 x 3 mg) PO QDAY #90 ea 06/21/24 Unknown Rx capsule,delayed,extended release dicyclomine 20 mg tablet 60 mg (3 x 20 mg) PO TID #710 tabs 06/21/24 Unknown Rx pantoprazole 40 mg tablet,delayed 40 mg PO BID #180 tabs 06/21/24 Unknown Rx release risankizumab-rzaa 180 mg/1.2 mL 180 mg (1.2 mL) subcut Q8W #1.2 mL 06/21/24 Unknown Rx (150 mg/mL) subcut wearable injector (Skyrizi) risankizumab-rzaa 60 mg/mL See Rx Instructions .Route 06/23/24 Unknown Rx intravenous solution (Skyrizi) .COMPLEX #10 mL cholecalciferol (vitamin D3) 25 25 mcg PO DAILY 07/07/24 Unknown History mcg (1,000 unit) capsule (Vitamin D3) Allergy/AdvReac Type Severity Reaction Status Date / Time No Known Allergies Allergy Verified 07/11/24 06:28 Surgical History History of colonoscopy History of appendectomy History of partial hysterectomy Social History Smoking Status: Current every day smoker tobacco type: e-cigarettes substance use type: does not use ROS Constitutional Constitutional: Denies fatigue, fever(s), poor appetite, weight gain or weight loss Gastrointestinal Gastrointestinal: Denies belching, bloating, change in bowel habits, change in stool character, chewing difficulty, coffee ground emesis, constipation, cramping, diarrhea, dyspepsia, dysphagia, early satiety, excessive flatus, fecal incontinence, heartburn, hematemesis, hematochezia, hemorrhoids, loose stools, melena, nausea, odynophagia, rectal bleeding, tenesmus, vomiting or weight changes Vital Signs Vital Signs Vital Signs: 07/11/24 06:29 07/11/24 06:29 Temperature 98.8 F Temperature Source Temporal Pulse Rate 65 Respiratory Rate 16 Respiratory Pattern Normal Blood Pressure 92/59 L Blood Pressure Mean 70 Blood Pressure Source Monitor Blood Pressure Position Semi-Fowlers Blood Pressure Location Right Arm Pulse Ox 100 Oxygen Delivery Method Room Air Weight Weight: 108 lb 11.006 oz Body Mass Index (BMI) 18.6 Physical Exam Const alert, oriented x3, no apparent distress and healthy appearing General Appearance: cooperative GI normal to inspection, nondistended, normoactive bowel sounds, soft to palpation, non-tender and non-distended Percussion: normal to percussion Rectal Exam: deferred Assessment & Plan Assessment/Plan (1) Rectal bleeding: (2) Epigastric pain: (3) LUQ pain: (4) Weight loss: (5) Abdominal pain: QUALIFIERS: Abdominal location: generalized Qualified Code(s): R10.84 - Generalized abdominal pain PLAN: Assessment and Plan Assessment and Plan (1) Crohn's disease: Status: Chronic Qualifiers: Gastrointestinal tract location: small and large intestine Digestive disease complication type: with rectal bleeding Qualified Code(s): K50.811 - Crohn's disease of both small and large intestine with rectal bleeding (2) Abdominal pain: Status: Acute Qualifiers: Abdominal location: generalized Qualified Code(s): R10.84 - Generalized abdominal pain (3) Weight loss: Status: Acute (4) LUQ pain: Status: Acute (5) Epigastric pain: Status: Acute (6) Rectal bleeding: Status: Acute Orders: Orders
--- NOTE | 2024-07-11 06:53 | PRE.ANES_ITS ---
ASA Classification* ASA Classification ASA Classification: 2 Assessment & Plan Anesthesia* Anesthesia Assessment Anesthesia Assessment: Discussed sedation and/or anesthesia options, risks, benefits, and alternatives with patient/parents/legal guardian/POA. Questions invited. The patient/parents/legal guardian/POA seems to understand and agrees to proceed with anesthesia plan. Reviewed the physical assessment, medical history, allergy history and patient home medications list prior to surgery/procedure/anesthetic and documented any changes. Performed airway and anesthesia risk assessments. Anesthesia Type Anesthesia Type: MAC Anesthesia Focused Assessment* Temperature: 98.8 F Pulse Rate: 65 Blood Pressure: 92/59 Respiratory Rate: 16 Pulse Ox: 100 Airway Assessment Mouth opens: >3 cm Mallampati Score: II Focused Labs Anesthesia Preop lab: CBC WBC 6.0 K/mm3 (4.4-11.0) 06/21/24 09:39 06/21/24 RBC 4.61 M/mm3 (4.2-5.4) 06/21/24 09:39 06/21/24 Hgb 13.5 g/dL (12.0-15.0) 06/21/24 09:39 06/21/24 Hct 40.6 % (37-47) 06/21/24 09:39 06/21/24 Plt Count 225 K/mm3 (150-450) 06/21/24 09:39 06/21/24 CHEMISTRY Potassium 4.0 mmol/L (3.5-5.1) 06/21/24 09:39 06/21/24 Sodium 138 mmol/L (136-145) 06/21/24 09:39 06/21/24 BUN 11 mg/dL (7-18) 06/21/24 09:39 06/21/24 Creatinine 0.66 mg/dL (0.55-1.02) 06/21/24 09:39 06/21/24 Glucose 90 mg/dL (74-106) 06/21/24 09:39 06/21/24 COAG Pre-Assessment Diagnosis/Proposed Procedure Planned Operative Procedure(s): COLONOSCOPY, EGD Anesthesia History Anesthesia History - infectious diseases physician: Anesthesia History - infectious diseases physician Hx Hospitalization No 07/07/24 08:08 Any Problems With Anesthesia No 07/07/24 08:08 Cholinesterase deficiency No 07/07/24 08:08 You/Your Family Experience No 07/07/24 08:08 fever (hyperthermia) with Relationship Recent Exposure to Contagious No 07/11/24 06:29 Disease Does patient have nerve No 07/07/24 08:08 stimulator Patient instructed to have device shut off --Does patient have Pacemaker No 07/11/24 06:29 or ICD? When Was Last Pacemaker Check QUESTION #4 FULL TEXT: You/Your Family Experience fever (hyperthermia) with Anesthesia Last Oral Intake Last Oral intake: Last Oral Intake NPO since 00:00 07/11/24 06:29 Meds taken in AM with sips of No 07/11/24 06:29 water? Meds patient instructed to take am of surgery PONV PONV - infectious diseases physician: PONV - infectious diseases physician Female Yes 07/07/24 08:08 HX of Motion Sickness No 07/07/24 08:08 HX of N/V After Surgery No 07/07/24 08:08 Non-Smoker No 07/07/24 08:08 Duration of Surgery greater No 07/07/24 08:08 than 60 minutes Number of Risk Factors 1 07/07/24 08:08 PONV Score Low Risk 07/07/24 08:08 Height & Weight Height & Weight: Anesthesia: Height & Weight Height 5 ft 4 in 07/11/24 06:29 Weight: 49.3 kg 07/11/24 06:29 Body Mass Index (BMI) 18.6 07/11/24 06:29 Respiratory Assessment Respiratory Assessment - infectious diseases physician: Respiratory Tract Infection Hx - infectious diseases physician Hx Respiratory Tract Infection No 07/07/24 08:08 STOP Sleep Apnea STOP Sleep Apnea - infectious diseases physician: STOP Sleep Apnea - infectious diseases physician Hx Hypertension No 07/07/24 08:08 Hx Sleep Apnea No 07/07/24 08:08 CPAP No 07/07/24 08:08 BIPAP Do you snore loudly (louder No 07/07/24 08:08 than talking or can be heard Do you often feel tired/ No 07/07/24 08:08 fatigued/ sleepy during daytime? Has anyone observed you stop No 07/07/24 08:08 breathing during sleep? STOP Results Negative 07/07/24 08:08 QUESTION #5 FULL TEXT : Do you snore loudly (louder than talking or can be heard through closed doors)? Tobacco Use History Tobacco Use History - infectious diseases physician: Tobacco Use History - infectious diseases physician Tobacco Use Smoking Status Current every day smoker 07/07/24 08:08 Hx Tobacco Use Yes 07/07/24 08:08 Years Smoking Packs Smoked per Day Smoking Cessation Date was within the last 15 years Hx Smoking Cessation Date Hx Smoking Cessation Counseling Hematologic Medial History Hematologic Hx - infectious diseases physician: Hematologic Medical Hx - polymerization engineer Hx of Blood Transfusion No 07/07/24 08:08 Hx of Transfusion in last 3 No 07/07/24 08:08 Months Date of Last Transfusion (if within last 3 months) Ever experience any problems No 07/07/24 08:08 with transfusion(s)? Specify any problems Hx of Preganancy in last 3 No 07/07/24 08:08 Months Nurse Filling Out Transfusion MGRIFFITH 07/07/24 08:08 & Questions: Date: 07/07/24 07/07/24 08:08 Time: 08:10 07/07/24 08:08 Patient unable to answer at this time (ie. confused, unrespo /Reproduction History /Reproductive History - infectious diseases physician: /Reproductive Hx- infectious diseases physician Hx Now No 07/07/24 08:08 Gestational Age (in weeks): EDC: Hx Hx Para Hx Section SAB No 07/07/24 08:08 [facility] History History of MRSA infection Anxiety Injury of head and neck Dietary restriction Heartburn Hemorrhagic cyst of right ovary Anemia History of intravenous drug abuse Wears dentures Loss of consciousness History of Crohn's disease Vapes nicotine containing substance History of edema History of stress test Depression Substance abuse Arthritis Low iron Easy bruising Back pain Cystic fibrosis Smoker Pilonidal cyst without mention of abscess Home Medications ?Medication ?Instructions ?Recorded ?Last Taken ?Type trazodone 50 mg tablet 50 mg PO .ONCE A DAY 3 Unknown History acetaminophen 500 mg tablet 1,000 mg (2 x 500 mg) PO Q 8H PRN 12/27/23 Unknown Rx (Tylenol Extra Strength) PRN pain 10 days #30 tabs budesonide 3 mg 9 mg (3 x 3 mg) PO QDAY #90 ea 06/21/24 Unknown Rx capsule,delayed,extended release dicyclomine 20 mg tablet 60 mg (3 x 20 mg) PO TID #71 0 tabs 06/21/24 Unknown Rx pantoprazole 40 mg tablet,delayed 40 mg PO BID #180 ta bs 06/21/24 Unknown Rx release risankizumab-rzaa 180 mg/1.2 mL 180 mg (1.2 mL) subcut Q8W #1.2 mL 06/21/24 Unknown Rx (150 mg/mL) subcut wearable injector (Skyrizi) risankizumab-rzaa 60 mg/mL See Rx Instructions .Route 06/23/24 Unknown Rx intravenous solution (Skyrizi) .COMPLEX #10 mL cholecalciferol (vitamin D3) 25 25 mcg PO DAILY Unknown History mcg (1,000 unit) capsule (Vitamin D3) Allergy/AdvReac Type Severity Reaction Status Date / Time No Known Allergies Allergy Verified 07/11/24 06:28 Surgical History History of colonoscopy History of appendectomy History of partial hysterectomy Social History Smoking Status: Current every day smoker tobacco type: e-cigarettes substance use type: does not use Review of Systems (Anesthesia) ROS Narrative System reviewed and no additional complaints, except as documented.
--- NOTE | 2024-07-11 07:00 | COLBX_PTH ---
PATIENT: WESTLEY SELLERS LOC: EN U#:[id number] AGE/SX: 38/F ROOM: RE07/11/[address]: Dr. Usman Mcmillan DO : 1985 BED: DIS: 07/11/2024 SPEC #: [id number] RECD: 07/11/24 11:20 STATUS: EVAN RENoris #: [id number] STEPHANIE: 07/11/24 07:[address]: Usman Mcmillan DEPT: SURGICAL PATHOLOGY RECD BY: Shahid Perales ENTERED: 07/11/24 11:50 SP TYPE: COLON BX OTHR DR: Dr. Teri Crocker MD Tissues: A - Gastric mucous membrane B - Duodenum, NOS C - COLON BIOPSY D - Rectum, NOS Procedures: Immunohistochemical Stains Surgery Specimen Level IV HEADER OPERATION: Colonoscopy with biopsy, EGD with biopsy PRE-OP DIAGNOSIS: Rectal bleeding, epigastric pain, left upper quadrant pain, weight loss, abdominal pain TISSUE SUBMITTED: A- Gastric antrum biopsy, B- Duodenum biopsy, C- Random colon biopsy, D- Rectal biopsy MICROSCOPIC DIAGNOSIS A. Stomach, antrum, biopsy: * Chronic gastritis with features of reactive gastropathy. * IHC is negative for H pylori organisms. B. Duodenum, biopsy: * Normal villous architecture, negative for increased intraepithelial lymphocytes. * Dalia gland hyperplasia and focal gastric mucin cell metaplasia, suggestive of peptic injury. C. Colon, random, biopsy: * No specific pathologic change. * Negative for features of microscopic colitis. D. Rectum, biopsy: * Intact fragments of colorectal mucosa with small mucosal lymphoid aggregates, favor reactive. * Detached fragment of fibrinopurulent debris, suggestive of acute inflammatory process. COMMENT The H pylori matched control reacted appropriately. MICROSCOPIC DESCRIPTION Slides are reviewed. These tests were developed and their performance characteristics determined by [facility]. They may not have been cleared or approved by the U.[place]. Food and Drug Administration. The FDA has determined that such clearance or approval is not necessary. The above immunohistochemical/dualISH markers are ordered and reviewed by the Pathologist. GROSS DESCRIPTION A. Received in fixative is one container labeled with the patient's name and designated Gastric antrum biopsy. The specimen consists of one irregular fragment of light yi soft tissue that measures 1 x 0.2 x 0.2 cm. The specimen is totally submitted in one cassette. B. Received in fixative is one container labeled with the patient's name and designated Duodenum biopsy. The specimen consists of multiple irregular fragments of light yi soft tissue that in aggregate measure 0.9 x 0.2 x 0.2 cm. The specimen is totally submitted in one cassette. C. Received in fixative is one container labeled with the patient's name and designated Random colon biopsy. The specimen consists of multiple irregular fragments of light yi soft tissue that in aggregate measure 2.4 x 0.2 x 0.2 cm. The specimen is totally submitted in one cassette. D. Received in fixative is one container labeled with the patient's name and designated Rectal biopsy. The specimen consists of two irregular fragments of light yi soft tissue that in aggregate measure 0.6 x 0.3 x 0.2 cm. The specimen is totally submitted in one cassette. 07/11/2024 TC: CPT:54410h9,63525
--- NOTE | 2024-07-11 07:49 | OP.EGD_ITS ---
Patient Name: Sandra Napier Procedure Date: 07/11/2024 7:16 AM Date of : 1985 Age: 38 Procedure: Upper GI endoscopy Indications: Epigastric abdominal pain Providers: Usman Mcmillan DO Referring MD: Teri Crocker Medicines: Monitored Anesthesia Care Patient Profile: This is a 38 year old female. Refer to note in patient chart for documentation of history and physical. Patient has symptoms of acute epigastric abdominal pain. Complications: No immediate complications. Procedure: Pre-Anesthesia Assessment: - Prior to the procedure, a History and Physical was performed, and patient medications and allergies were reviewed. The patient is competent. The risks and benefits of the procedure and the sedation options and risks were discussed with the patient. All questions were answered and informed consent was obtained. Patient identification and proposed procedure were verified by the physician. Mental Status Examination: alert and oriented. Airway Examination: normal oropharyngeal airway and neck mobility. Respiratory Examination: clear to auscultation. CV Examination: normal. Prophylactic Antibiotics: The patient does not require prophylactic antibiotics. Prior Anticoagulants: The patient has taken no anticoagulant or antiplatelet agents except for NSAID medication. ASA Grade Assessment: II - A patient with mild systemic disease. After reviewing the risks and benefits, the patient was deemed in satisfactory condition to undergo the procedure. The anesthesia plan was to use monitored anesthesia care (MAC). Immediately prior to administration of medications, the patient was re-assessed for adequacy to receive sedatives. The heart rate, respiratory rate, oxygen saturations, blood pressure, adequacy of pulmonary ventilation, and response to care were monitored throughout the procedure. The physical status of the patient was re-assessed after the procedure. After obtaining informed consent, the endoscope was passed under direct vision. Throughout the procedure, the patient's blood pressure, pulse, and oxygen saturations were monitored continuously. The Colonoscope was introduced through the mouth, and advanced to the second part of duodenum. The upper GI endoscopy was accomplished without difficulty. The patient tolerated the procedure well. Scope In: 7:27:17 AM Scope Out: 7:30:08 AM Total Procedure Duration Time 0 hours 2 minutes 51 seconds Findings: The examined esophagus was normal. Patchy mild inflammation characterized by erythema was found in the stomach. Biopsies were taken with a cold forceps for histology. Verification of patient identification for the specimen was done. Biopsies were taken with a cold forceps for Helicobacter pylori testing. Verification of patient identification for the specimen was done. Estimated blood loss was minimal. Suspect gastroparesis due to patient symptoms. A benign-appearing, intrinsic moderate stenosis was found at the pylorus. This was traversed. Patchy mild inflammation characterized by congestion (edema) and erythema was found in the duodenal bulb, in the first portion of the duodenum and in the second portion of the duodenum. Biopsies were taken with a cold forceps for histology. Verification of patient identification for the specimen was done. Estimated blood loss was minimal. Impression: - Normal esophagus. - Acute gastritis. Biopsied. - Gastroparesis. - Gastric stenosis was found at the pylorus. - Chronic duodenitis. Biopsied. Recommendation: - Discharge patient to home. - Resume previous diet. - Continue present medications. - Await pathology results. - Repeat upper endoscopy for surveillance. Procedure Code(s): --- Professional --- 59319, Esophagogastroduodenoscopy, flexible, transoral; with biopsy, single or multiple CPT copyright 2021 [employer] [place] [employer]. All rights reserved. The codes documented in this report are preliminary and upon javascript programmer review may be revised to meet current compliance requirements. Usman Mcmillan DO 07/11/2024 7:49:18 AM This report has been signed electronically. Number of Addenda: 0 Note Initiated On: 07/11/2024 7:16 AM
--- NOTE | 2024-07-11 07:50 | OP.CCLET_ITS ---
07/11/2024 Teri Crocker [address] [place] [address] Re : Upper GI endoscopy procedure for Sandra Napier Dear Dr. Crocker This procedure was performed on Thursday, July 11, 2024. My impressions and recommendations are as follows: Impressions : - Normal esophagus. - Acute gastritis. Biopsied. - Gastroparesis. - Gastric stenosis was found at the pylorus. - Chronic duodenitis. Biopsied. Recommendations : - Discharge patient to home. - Resume previous diet. - Continue present medications. - Await pathology results. - Repeat upper endoscopy for surveillance. My findings are described in the full procedure note, which is enclosed. If I can be of further assistance, please feel free to contact me at . Sincerely, Usman Mcmillan, 07/11/2024 7:49:18 AM This report has been signed electronically.
--- NOTE | 2024-07-11 07:52 | OP.COLON_ITS ---
Patient Name: Sandra Napier Procedure Date: 07/11/2024 7:30 AM Date of : 1985 Age: 38 Procedure: Colonoscopy Indications: Crohn's disease of the small bowel and colon Providers: Usman Mcmillan DO Referring MD: Teri Crocker Medicines: Monitored Anesthesia Care Patient Profile: This is a 38 year old female. Refer to note in patient chart for documentation of history and physical. Patient has symptoms of acute epigastric abdominal pain. Last Colonoscopy: within the past 3 years. Complications: No immediate complications. Procedure: Pre-Anesthesia Assessment: - Prior to the procedure, a History and Physical was performed, and patient medications and allergies were reviewed. The patient is competent. The risks and benefits of the procedure and the sedation options and risks were discussed with the patient. All questions were answered and informed consent was obtained. Patient identification and proposed procedure were verified by the physician. Mental Status Examination: alert and oriented. Airway Examination: normal oropharyngeal airway and neck mobility. Respiratory Examination: clear to auscultation. CV Examination: normal. Prophylactic Antibiotics: The patient does not require prophylactic antibiotics. Prior Anticoagulants: The patient has taken no anticoagulant or antiplatelet agents except for NSAID medication. ASA Grade Assessment: II - A patient with mild systemic disease. After reviewing the risks and benefits, the patient was deemed in satisfactory condition to undergo the procedure. The anesthesia plan was to use monitored anesthesia care (MAC). Immediately prior to administration of medications, the patient was re-assessed for adequacy to receive sedatives. The heart rate, respiratory rate, oxygen saturations, blood pressure, adequacy of pulmonary ventilation, and response to care were monitored throughout the procedure. The physical status of the patient was re-assessed after the procedure. After I obtained informed consent, the scope was passed under direct vision. Throughout the procedure, the patient's blood pressure, pulse, and oxygen saturations were monitored continuously. The Colonoscope was introduced through the anus and advanced to the cecum, identified by appendiceal orifice and ileocecal valve. The colonoscopy was performed without difficulty. The patient tolerated the procedure well. The quality of the bowel preparation was poor. The ileocecal valve, appendiceal orifice, and rectum were photographed. Scope In: 7:31:28 AM Scope Withdrawal Time 0 hours 6 minutes 46 seconds Scope Out: 7:44:45 AM Total Procedure Duration Time 0 hours 13 minutes 17 seconds Findings: The perianal and digital rectal examinations were normal. The Simple Endoscopic Score for Crohn's Disease was determined based on the endoscopic appearance of the mucosa in the following segments: - Ileum: Findings include aphthous ulcers less than 0.5 cm in size, less than 10% ulcerated surfaces, less than 50% of surfaces affected and a single narrowing that can be passed. Segment score: 4. - Right Colon: Findings include no ulcers present, no ulcerated surfaces, no affected surfaces and no narrowings. Segment score: 0. - Transverse Colon: Findings include aphthous ulcers less than 0.5 cm in size, 10-30% ulcerated surfaces, 50-75% of surfaces affected and a single narrowing that can be passed. Segment score: 6. - Left Colon: Findings include aphthous ulcers less than 0.5 cm in size, no ulcerated surfaces, no affected surfaces and no narrowings. Segment score: 1. - Rectum: Findings include aphthous ulcers less than 0.5 cm in size, less than 10% ulcerated surfaces, no affected surfaces, no narrowings and no ulcers present, no ulcerated surfaces, no affected surfaces and no narrowings. Segment score: 2. - Total SES-CD aggregate score: 13. Biopsies were taken with a cold forceps for histology. Verification of patient identification for the specimen was done. Estimated blood loss was minimal. Stool was found in the rectum, in the recto-sigmoid colon, in the sigmoid colon, at the hepatic flexure, in the ascending colon and in the cecum. Impression: - Preparation of the colon was poor. - Simple Endoscopic Score for Crohn's Disease: 13, mucosal inflammatory changes secondary to Crohn's disease. Biopsied. Recommendation: - Discharge patient to home. - Resume previous diet. - Continue present medications. - Await pathology results. - Repeat colonoscopy in 1 year for surveillance. Procedure Code(s): --- Professional --- 64041, Colonoscopy, flexible; with biopsy, single or multiple CPT copyright 2021 [employer]. All rights reserved. The codes documented in this report are preliminary and upon manager sourcing review may be revised to meet current compliance requirements. Usman Mcmillan DO 07/11/2024 7:52:34 AM This report has been signed electronically. Number of Addenda: 0 Note Initiated On: 07/11/2024 7:30 AM
--- NOTE | 2024-07-11 07:53 | OP.CCLET_ITS ---
07/11/2024 Teri Crocker [address] [place] [address] Re : Colonoscopy procedure for Sandra Bealnneman Dear Dr. Crocker This procedure was performed on Thursday, July 11, 2024. My impressions and recommendations are as follows: Impressions : - Preparation of the colon was poor. - Simple Endoscopic Score for Crohn's Disease: 13, mucosal inflammatory changes secondary to Crohn's disease. Biopsied. Recommendations : - Discharge patient to home. - Resume previous diet. - Continue present medications. - Await pathology results. - Repeat colonoscopy in 1 year for surveillance. My findings are described in the full procedure note, which is enclosed. If I can be of further assistance, please feel free to contact me at . Sincerely, Usman Mcmillan, 07/11/2024 7:52:34 AM This report has been signed electronically.
--- NOTE | 2024-07-11 07:55 | PCM.POST.ANE ---
Anesthesia: Postop Eval I Current Vital Signs Temperature: 97.9 F Pulse Rate: 61 Blood Pressure: 84/57 Respiratory Rate: 16 Pulse Ox: 98 Oxygen Delivery Method: Room Air Assessment Airway patent: Yes Spontaneous unlabored respirations: Yes Mental status: Asleep nausea: No Vomiting: No Anesthesia Complication: No Fluid Hydration Crystalloid volume administer (ml): 60 Total IV fluid infused: 60 Progress Note Anesthesia document: Postop Eval 1 completed: Yes
--- NOTE | 2024-07-11 10:40 | PCM.POSTANE2 ---
Anesthesia Postop Eval I Sum Postop Eval Completion status Anesthesia document: Postop Eval 1 completed: Yes Anesthesia Postop Eval I Summary Anesthesia Postop Eval I Summary: Anesthesia Postop Eval I: Assessment Summary Airway patent Yes 07/11/24 07:56 [email or web address] Spontaneous unlabored Yes 07/11/24 07:56 [email or web address] respirations Mental status Asleep 07/11/24 07:56 [email or web address] nausea No 07/11/24 07:56 [email or web address] Vomiting No 07/11/24 07:56 [email or web address] Anesthesia Postop Eval I: Fluid Summary Crystalloid volume administer 60 07/11/24 07:56 [email or web address] (ml) Colloids volume administered ( ml) Blood Product volume administered (ml) Total IV fluid infused 60 07/11/24 07:56 [email or web address] Anesthesia Postop Eval I: Summary Notes Anesthesia Complication No 07/11/24 07:56 [email or web address] Anesthesia Complication Comment: Post-operative progress note Anesthesia: Postop Eval II Evaluation Mental status: Awake Pain Level: 0 nausea: No Vomiting: No
== END 2024-07-11 08:42 | disposition home or self-care (01) ==
LOC: EN 05:48 → AC 05:50
PROVIDERS: PCP Internal Medicine; Referring Provider Internal Medicine; Visit Provider Internal Medicine Gastroenterology
PROC: 0DJD8ZZ Inspection of Lower Intestinal Tract, Via Natural or Artificial Opening Endoscopic (ICD-10-PCS; CPT 45378; principal; 2024-07-11 06:55)
DX: K29.50 Unspecified chronic gastritis without bleeding (principal); K50.90 Crohn's disease, unspecified, without complications; K29.00 Acute gastritis without bleeding; K29.80 Duodenitis without bleeding; F17.290 Nicotine dependence, other tobacco product, uncomplicated; K31.1 Adult hypertrophic pyloric stenosis; K31.84 Gastroparesis; K31.89 Other diseases of stomach and duodenum; Z79.899 Other long term (current) drug therapy
CPT/HCPCS: 45380; 43239; 88305; 88342; J2405

== ENCOUNTER → 2024-07-28 | Outpatient (CLI) | payer OTHER, SELFPAY ==
--- NOTE | 2024-07-28 10:15 | MRI_ITS ---
PROCEDURE: [facility] N/A REASON FOR EXAM: K50.811 - CROHN'S DISEASE OF BOTH SMALL AND LARGE INTESTINE WI... TECHNIQUE: Multisequence multiplanar MRI of the abdomen and pelvis was performed with and without IV contrast. Oral contrast was administered. IV contrast: 10 mL Clariscan PO contrast: 1500 mLBreeza COMPARISON: None FINDINGS: Note that the exam was optimized for evaluation of the bowel rather than the remaining abdominopelvic viscera. Note also that dynamic T2 and diffusion sequences were note that not performed. Variable overall mild motion limitation. Liver: Unremarkable. Spleen: Unremarkable. Gallbladder: Unremarkable. Pancreas: Unremarkable. Adrenals: Unremarkable. Kidneys: Suboptimally visualized, grossly unremarkable. Bowel: Segmental areas of moderate to marked eccentric T2 dark and immediate wall thickening with mild mural stratification to maximum thickness 10 mm along an approximate 10 cm segment of the terminal ileum extending to the ileocecal valve with alternating areas of associated luminal narrowing. No upstream dilatation or clear mesenteric edema. Mild early hyperemia is present. No other areas of abnormal small bowel identified. Large colonic stool burden. No convincing evidence of penetrating disease such as clear fistulization or abscess. Note the perianal region is excluded from the field of view inferiorly and can not be evaluated. Lymph nodes: Grossly unremarkable. Vasculature: Grossly unremarkable. Peritoneum: Trace pelvic free fluid may be physiologic in this demographic. Bladder: Underdistended; grossly unremarkable. Reproductive Organs: Hysterectomy. Body Wall: Operative changes anteriorly. Bones: Unremarkable. MRI/Enterography Abd/Pel IMPRESSION: 1. Findings along an approximately 10 cm segment of distal/terminal ileum are c ompatible with Crohn's disease as clinically suspected. Signal characteristics suggest at least mild active inflammation. Alternating segments of luminal narrowing with associated moderate/marked wall thickening may reflect associated reflect stric ture however there is no upstream dilatation to confirm this or suggest obstruction. Findings would optimally be evaluated end oscopically. No clear evidence of penetrating disease such as fistulization or abscess. 2. Additional description as above. Reading Location: [id number]
[2024-07-28 10:38] VITALS: BP 99/68; PULSE 68; RESP 16; O2SAT 96; BMI 18.5
[2024-07-28] MEDS: Glucagon 1 MG/ML Syringe IV (12:09)
[2024-07-28 12:24] VITALS: BP 105/68; PULSE 72; RESP 14; O2SAT 95
== END | disposition home or self-care (01) ==
LOC: MRI 09:59
PROVIDERS: PCP Internal Medicine; Referring Provider Nurse Practitioner Acute Care; Visit Provider Nurse Practitioner Acute Care
DX: K50.811 Crohn's disease of both small and large intestine with rectal bleeding (principal); R63.4 Abnormal weight loss; R10.12 Left upper quadrant pain; R10.13 Epigastric pain
CPT/HCPCS: 74183; A9575; J1610

== ENCOUNTER → 2024-11-08 | Outpatient (CLI) | payer OTHER, SELFPAY ==
[2024-11-08 09:33] LABS: CRP < 3.00 mg/L (0.0-3.0)
[2024-11-08 10:15] LABS: Vitamin D,25 Hydroxy 30.7 ng/mL (30-100)
[2024-11-10 14:08] LABS: Vitamin D 1,25-Dihydroxy 35.5 pg/mL (24.8-81.5)
== END | disposition home or self-care (01) ==
PROVIDERS: Nurse Practitioner Acute Care; PCP Internal Medicine; Referring Provider Internal Medicine Gastroenterology; Visit Provider Internal Medicine Gastroenterology
DX: K50.811 Crohn's disease of both small and large intestine with rectal bleeding (principal)
CPT/HCPCS: 36415; 82306; 82652; 85652; 86140